=== PATIENT | female | born 1930 | race Caucasian/White ===

== ENCOUNTER 2016-05-24 07:52 | Emergency (ER) | payer MEDICARE ==
[2016-05-24] MEDS ORDERED: Rabies Vaccine (RabAvert)* 2.5 UNITS VIAL IM ONE (08:17)
[2016-05-24] MEDS ORDERED: Rabies Immune Globulin 2 ML* 150 UNITS/ML VIAL IM ONE (08:17)
[2016-05-24] MEDS ORDERED: Tetan/Diph/Pertus SYR(Tdap)* 0.5 ML SYR(BOOSTRIX) use SYR IM ONE (08:17)
[2016-05-24] MEDS ORDERED: Ibuprofen TAB* 600 MG PO ONE (08:26)
[2016-05-24] MEDS ORDERED: cefTRIAXone(*) 1 GM in NS 0.9% 50 ML* 50 ML IVPB ONE (08:37)
[2016-05-24] MEDS ORDERED: Clindamycin 600 MG IVPREMIX(* 600 MG/50 ML SDV IV ONE (08:37)
--- NOTE | 2016-05-24 09:38 | ED ---
Skin Complaint - HPI Summary HPI Summary: Pt here w/ multiple cat bites to Rt UE. Was trying to get a farel cat to the vets for imms and it bit her/scratched her multiple times. Pt is not sure of her last tetanus vaccine and has not had rabies vaccine. No other injuries acquired. Moving fingers, wrist and elbow well. Area is painful to touch. - History of Current Complaint Time Seen by Provider: 05/24/16 08:27 Stated Complaint: CAT BITES Hx Obtained From: Patient - Allergy/Home Medications Allergies/Adverse Reactions: Allergies Allergy/AdvReac Type Severity Reaction Status Date / Time Sulfa Antibiotics Allergy Rash Verified 02/25/15 17:56 PMH/Surg Hx/FS Hx/Imm Hx Previously Healthy: Yes Endocrine/Hematology History: Denies: Hx Anticoagulant Therapy, Hx Diabetes, Hx Thyroid Disease, Hx Unexplained Bleeding, Autoimmune Disease Cardiovascular History: Reports: Hx Hypertension Denies: Hx Pacemaker/ICD Respiratory History: Reports: Hx Asthma Denies: Hx Chronic Obstructive Pulmonary Disease (COPD) History: Denies: Hx Renal Disease Musculoskeletal History: Reports: Hx Arthritis, Other Musculoskeletal History - Osteoarthritis Denies: Hx Rheumatoid Arthritis, Hx Osteoporosis Sensory History: Reports: Hx Contacts or Glasses, Hx Hearing Aid - BOTH, Hx Hearing Problem Opthamlomology History: Reports: Hx Contacts or Glasses Neurological History: Reports: Other Neuro Impairments/Disorders - PAIN CLINIC PATIENT Denies: Hx Dementia, Hx Seizures Psychiatric History: Reports: Hx Anxiety, Hx Depression Denies: Hx Panic Disorder, Hx Substance Abuse - Cancer History Cancer Type, 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 Lt HIP REPAIR - FX- 05/2014. [facility]ARACT - Immunization History Date of Tetanus Vaccine: 05/22/12 Date of Influenza Vaccine: 05/24/12 Infectious Disease History: Denies: Hx Hepatitis, Hx Human Immunodeficiency Virus (HIV), Hx of Known/ Suspected MRSA, Traveled Outside the [place] in Last 30 Days - Family History Known Family History: Positive: None - Social History Occupation: Retired Lives: Alone Alcohol Use: None Hx Substance Use: No Substance Use Type: Reports: None Smoking Status (MU): Never Smoked Tobacco Review of Systems Negative: Fever, Chills, Fatigue Negative: Chest Pain Positive: no symptoms reported Positive: Myalgia. Negative: Arthralgia, Decreased ROM, Edema Skin: Other - see HPI Negative: Weakness, Paresthesia, Numbness Psychological: Normal All Other Systems Reviewed And Are Negative: Yes Physical Exam Triage Information Reviewed: Yes Vital Signs Reviewed: Yes Appearance: Positive: Well-Appearing, No Pain Distress, Well-Nourished Skin: Positive: Warm - multiple puncture wounds and lacerations over Rt Forearm (dorsal and ventral) - ~3 punctures and 2 lacerations dorsally, ~ 3 punctures and 1 laceration vetrally; lac's bleeding, punctures starting to scab Head/Face: Positive: Normal Head/Face Inspection Eyes: Positive: Normal, EOMI, Conjunctiva Clear ENT: Positive: Hearing grossly normal, Pharynx normal Respiratory/Lung Sounds: Positive: Breath Sounds Present Cardiovascular: Positive: Normal, Pulses are Symmetrical in both Upper and Lower Extremities Abdomen Description: Positive: Nontender, Soft Musculoskeletal: Positive: Normal, Strength/ROM Intact - no restriction of movement, no tendons visible within wounds Neurological: Positive: Normal, Sensory/Motor Intact, Alert, Oriented to Person Place, Time, CN Intact II-III Psychiatric: Positive: Normal Procedures - Procedure Summary Procedure Summary: Rt arm was soaked and pressure cleansed then soaked again. Solutions included hibaclens and iodine. Each wound was then anesthetized with 0.5% marcaine, then individually flushed w/ sterile saline, then injected with rabies immunoglobulin (0.5mL - 1.5mL depending on wound size). Lacerations were repaired as states below. Arm was bandaged with sterile gauze and wrap covering all wounds. Pt tolerated well. - Laceration/Wound Repair 1 Location: upper extremity - Rt dorsal wrist, proximal Description: Linear Anesthesia: Local, .5%, Marcaine Length, Depth and Shape: 1.75cm x 3mm Betadine Prep?: Yes Laceration/Wound Explored: clean Closure: Single Layer Suture Type: Nylon - 5-0 Number of Sutures: 2 Layer Closure?: No Sterile Dressing Applied?: Yes - sterile gauze 2 Location: upper extremity - Rt dorsal wrist, distal Description: Linear Anesthesia: Local, .5%, Marcaine Length, Depth and Shape: 3cm x 4mm Betadine Prep?: Yes Laceration/Wound Explored: clean Closure: Single Layer Suture Type: Nylon - 5-0 Number of Sutures: 3 Layer Closure?: No Sterile Dressing Applied?: Yes - sterile gauze 3 Location: upper extremity - Rt wrist ventral Description: Linear - 1cm Anesthesia: Local, .5%, Marcaine Length, Depth and Shape: 1cm x 3mm Betadine Prep?: Yes Laceration/Wound Explored: clean Closure: Single Layer Suture Type: Nylon - 5-0 Number of Sutures: 1 Layer Closure?: No Sterile Dressing Applied?: Yes - gauze Course/Dx - Course Course Of Treatment: Pt sustained mulitple cat bites/scratches to Rt forearm, wrist and hand. Copious irrigation and anti-bacterial cleaning approaches implemented. Loose closure of 3 lacerations to allow drainage w/ encouragement to soak wounds daily and close f/u w/ PCP. Given the quantity and severity of bites as well as nature (cat oral bacteria), pt was tx'd w/ rocephin and clindamycin IV today and will continue anbx PO at home w/ Augmentin. Reviewed danger s/sx of when to return to ED - pt voices understanding. - Diagnoses Provider Diagnoses: Cat bite of multiple sites of right hand and wrist Discharge - Discharge Plan Condition: Stable Disposition: HOME Prescriptions: Amoxicillin/Clavulanate TAB* [Augmentin TAB 875*] 875 mg PO BID #20 tab Patient Education Materials: Rabies Immune Globulin (By injection), Diphtheria/ Acellular Pertussis/Tetanus Vaccine (DTaP) (By injection), Animal Bite (ED), Rabies Vaccine (ED) Referrals: Lori Redding, [facility] [Primary Care Provider] - Additional Instructions: You have sustained multiple cat bites. 3 of them have been closed with sutures - the remaining wounds were left open in an effort to drain. Your sutures need to be removed in 10-14 days however may be removed sooner or later at the discretion of your PCP. You have a dressing in place now - this may be removed so that you may soak your wounds 2 x day in soapy water - rinse well after - pat dry with clean cloth - then reapply fresh gauze with outer wrap. Do not put ointment, cream or any topical medications on your wounds. Keep arm elevated. You may apply ice over your dressing for pain and swelling relief. You may take ibuprofen alternating with tylenol for pain. Complete your antibiotics. You received some here today by IV but also need to take oral pills at home over the next 10 days. You may take probiotics to prevent diarrhea/yeast infection. Discuss with your PCP. You also need [facility] to [facility] remaining rabies vaccine series. Call today to set up your appointments. Follow-up with your PCP tomorrow for wound check and to discuss a monitoring routine as these wounds may get infected. *If you develop red streaking up your arm, purulent drainage, fever, chills - return to the ED
[2016-05-24 10:03] VITALS: BP 123/65
== END 2016-05-24 13:00 | disposition home or self-care (01) ==
LOC: ED 07:52
DX: S60.571A Other superficial bite of hand of right hand, initial encounter (principal); W55.01XA Bitten by cat, initial encounter; Y93.9 Activity, unspecified; Y92.9 Unspecified place or not applicable; Y99.9 Unspecified external cause status
CPT/HCPCS: 90375; 90471; 90675; 90715; 99283; A9270-GY; J0696

== ENCOUNTER 2016-05-25 14:02 | Inpatient (IN) | payer MEDICARE ==
[2016-05-25] MEDS ORDERED: NS 0.9% 1000 ML* 1,000 ML IV ONE (14:54)
[2016-05-25] MEDS ORDERED: Ondansetron INJ* 2 MG/ML VIAL IV ONE (14:54)
[2016-05-25] MEDS ORDERED: Morphine INJ* 2 MG/ML 1 ML CARPUJECT IV ONE (14:54)
[2016-05-25] MEDS ORDERED: Piperac/Tazob 3.375 gm in NS* 3.375 GM/100 ML BAG IVPB ONE (15:01)
[2016-05-25 15:52] LABS: Hematocrit 34 % (35-47); Hemoglobin 11.4 g/dl (12.0-16.0); Mean Corpuscular HGB Conc 34 g/dl (31-36); Mean Corpuscular Hemoglobin 30 pg (27-31); Mean Corpuscular Volume 89 fL (80-97); Mean Platelet Volume 8 um3 (7.4-10.4); Red Blood Count 3.77 10^6/ul (4.0-5.4); Red Cell Distribution Width 13 % (10.5-15); White Blood Count 19.1 10^3/ul (3.5-10.8)
[2016-05-25 16:21] LABS: Albumin 4.1 g/dL (3.2-5.2); BUN/Creatinine Ratio 20.2 (8-20); C Reactive Protein 208.95 mg/L (< 5.00); Calcium 10.1 mg/dL (8.6-10.3); EGFR African American 61.2 (>60); EGFR Non-African American 47.6 (>60); Globulin 3.3 g/dL (2-4); Potassium 3.7 mmol/L (3.5-5.0); Total Bilirubin 0.6 mg/dL (0.2-1.0); Total Protein 7.4 g/dL (6.4-8.9)
--- NOTE | 2016-05-25 17:19 | ED ---
Ramez Edmondson Billy, scribed for Pasha Jalloh MD on 05/25/16 at 1456 . Complex/Multi-Sys Presentation - HPI Summary HPI Summary: Patient is an 86 year-old female coming to [facility] for evaluation of general weakness. She was seen in the ED for cat bite/scratches and was given sutures in the RUE. She is incontinent of stool today because she was unable to get up to stand and use her walker secondary to the pain in her right arm. She was prescribed Augmentin yesterday but has not gotten a chance to take any yet. - History Of Current Complaint Chief Complaint: EDGeneral Time Seen by Provider: 05/25/16 14:17 Hx Obtained From: Patient Onset/Duration: Gradual Onset, Lasting Hours, Still Present Timing: Constant Severity Currently: Moderate Severity Initially: Moderate Location: Pain At: - RUE Aggravating Factor(s): none Alleviating Factor(s): none Associated Signs And Symptoms: Positive: Weakness, Other - stool incontinent; cat scratch - Allergies/Home Medications Allergies/Adverse Reactions: Allergies Allergy/AdvReac Type Severity Reaction Status Date / Time Sulfa Antibiotics Allergy Rash Verified 05/25/16 14:32 PMH/Surg Hx/FS Hx/Imm Hx Endocrine/Hematology History: Denies: Hx Anticoagulant Therapy, Hx Diabetes, Hx Thyroid Disease, Hx Unexplained Bleeding Cardiovascular History: Reports: Hx Hypertension Denies: Hx Pacemaker/ICD Respiratory History: Reports: Hx Asthma Denies: Hx Chronic Obstructive Pulmonary Disease (COPD) History: Denies: Hx Renal Disease Musculoskeletal History: Reports: Hx Arthritis, Other Musculoskeletal History - Osteoarthritis Denies: Hx Rheumatoid Arthritis, Hx Osteoporosis Sensory History: Reports: Hx Contacts or Glasses, Hx Hearing Aid - BOTH, Hx Hearing Problem Opthamlomology History: Reports: Hx Contacts or Glasses Neurological History: Reports: Other Neuro Impairments/Disorders - PAIN CLINIC PATIENT Denies: Hx Dementia, Hx Seizures Psychiatric History: Reports: Hx Anxiety, Hx Depression Denies: Hx Panic Disorder, Hx Substance Abuse - Cancer History Cancer Type, 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 Lt HIP REPAIR - FX- 05/2014. [facility]ARACT - Immunization History Date of Tetanus Vaccine: 05/22/12 Date of Influenza Vaccine: 05/24/12 Infectious Disease History: No Infectious Disease History: Denies: Hx Hepatitis, Hx Human Immunodeficiency Virus (HIV), Hx of Known/ Suspected MRSA, Traveled Outside the US in Last 30 Days - Family History Family History: Denies FHx of breast cancer. - Social History Alcohol Use: None Hx Substance Use: No Substance Use Type: Reports: None Smoking Status (MU): Never Smoked Tobacco Review of Systems Positive: Other - incontinent stool Positive: Other - RUE pain Positive: Other - cat scratch/bite to RUE All Other Systems Reviewed And Are Negative: Yes Physical Exam - Summary Physical Exam Summary: Vital signs: reviewed General: Patient is and elderly fragile female here c/o UE pain and generalized weakness. HEENT: within normal limits Lungs: CTA B/L CVS: S1 & S2 present. No murmurs appreciated. ABDOMEN: Soft, non-tender. No signs of distention. No rebound no guarding, and no masses palpated. Bowel sounds are normal. EXTREMITIES: RUE wirh multiple repaired wounds w/o discharge but with erythema and tracking into the arm. NEURO: Alert and oriented x 3. No acute neurological deficits. Speech is normal and follows commands. SKIN: Dry and warm Triage Information Reviewed: Yes Vital Signs On Initial Exam: Initial Vitals Temp Pulse Resp BP Pulse Ox 98.3 F 96 20 120/93 92 05/25/16 14:28 05/25/16 14:28 05/25/16 14:28 05/25/16 14:28 05/25/16 14:28 Vital Signs Reviewed: Yes Diagnostics - Vital Signs Vital Signs Temp Pulse Resp BP Pulse Ox 05/25/16 14:28 98.3 F 96 20 120/93 92 - Laboratory Result Diagrams: 05/25/16 15:30 05/25/16 15:30 Lab Statement: Any lab studies that have been ordered have been reviewed, and results considered in the medical decision making process. Complex Multi-Symp Course/Dx Assessment/Plan: Patient is an 86 year-old female coming to [facility] for evaluation of general weakness. She was seen in the ED for cat bite/scratches and was given sutures in the RUE. She is incontinent of stool today because she was unable to get up to stand and use her walker secondary to the pain in her right arm. She was prescribed Augmentin yesterday but has not gotten a chance to take any yet. Bloodwork shows WBC of 19.1, H&H of 11.4/34. CMP shows creatinine of 1.09, glu 130, lactic acid of 2.6 and CRP of 208. Physical examination shows that she has significant cellulitis retracting into her armpit. Therfore I believe she is failing to outpatient therapy and therefore she needs IV abx. She was started on Zosyn 3.375mg IV. I discussed the case with Dr. Hairston who accepted the patient for admission. She is hemodynamically stable, A&Ox3. - Diagnoses Differential Diagnoses/HQI/PQRI: Sepsis, Other - UE cellulitis, abscess Provider Diagnoses: UE cellulitis - Physician Notifications Discussed Care Of Patient With: Dr. Hairston (hospitalist) @ 1703: accepts admission. Discharge - Discharge Plan Condition: Stable Disposition: ADMITTED TO [facility] Referrals: Lori Redding, [facility] [employer] [facility] [Primary Care Provider] - The documentation as recorded by the Ramez durán Billy accurately reflects the service I personally performed and the decisions made by me, Pasha Jalloh MD.
[2016-05-25] MEDS ORDERED: Acetaminophen TAB* 325 MG PO PRN (17:47)
[2016-05-25] MEDS ORDERED: Docusate CAP* 100 MG PO PRN (17:47)
[2016-05-25] MEDS ORDERED: Ondansetron INJ* 2 MG/ML VIAL IV PRN (17:57)
[2016-05-25] MEDS ORDERED: NS 0.9% 1000 ML* 1,000 ML IV SCH (18:00)
[2016-05-25] MEDS: Piperac/Tazob 3.375 gm in NS* 3.375 GM/100 ML BAG IVPB SCH (20:14)
[2016-05-25] MEDS: Enoxaparin(*) 30 MG/0.3 ML SYR SUBCUT SCH (20:14)
--- NOTE | 2016-05-25 21:58 | HP ---
AMENDED REPORT NOW INCLUDES DATE OF ADMISSION - WAS NOT DICTATED HISTORY AND PHYSICAL: DATE OF ADMISSION: 05/25/16 PRIMARY CARE PROVIDER: Lori Redding NP ADMITTING PROVIDER: LANA Dinh SUPERVISING PHYSICIAN: Gretchen Jaramillo MD * (DICTATED BY LANA DINH) CHIEF COMPLAINT: Generalized weakness and increased hand and arm pain. HISTORY OF PRESENT ILLNESS: This is an 86-year-old female with history of hypertension, asthma, anxiety and depression, and chronic back pain secondary to osteoarthritis who was seen yesterday in the emergency department after sustaining cat scratches and bites. She underwent loose closure and started on her rabies vaccination series as well as receiving Rocephin and clindamycin and discharged home with 10 days of Augmentin. The patient was unable to open her bottle of Augmentin due to pain in her arm and awoke this morning with generalized weakness, increased pain, and erythema. The patient attempted to function at home throughout the day, but was still profoundly weak that she was unable to walk. Her daughter attempted to bring her into the emergency department via car but was unable to get her into the car , so EMS was called. The patient denies any nausea, vomiting, abdominal pain, shortness of breath, or chest pain. She is unsure if she has been febrile at home but denies any chills. PAST MEDICAL HISTORY: 1. Asthma - mild intermittent. 2. Hypertension. 3. Anxiety and depression. 4. Chronic back pain, secondary to osteoarthritis. PAST SURGICAL HISTORY: 1. Hysterectomy. 2. Left total hip replacement. 3. Cataract surgery. 4. Skin excision for squamous cell carcinoma. HOME MEDICATIONS: 1. Acetaminophen 650 mg p.o. q.12 hours p.r.n. pain or fever. 2. Albuterol sulfate 2 puffs inhaled q.4 hours as needed for shortness of breath. 3. Augmentin 875 mg p.o. b.i.d. x 10 days. 4. Calcium and vitamin D supplements 3 chewables p.o. daily. 5. Docusate 100 mg p.o. daily. 6. Lisinopril 2.5 mg p.o. daily. 7. Loratadine 10 mg p.o. daily. 8. Paroxetine 20 mg p.o. daily. 9. Propanol 20 mg p.o. b.i.d. FAMILY HISTORY: Father of an acute MO. Mother of stomach cancer. Sister also of stomach cancer. She has 2 children, alive and well. SOCIAL HISTORY: The patient lives alone. Her daughter lives down the street. Denies any smoking history. Regular alcohol consumption. She is retired from [employer]. REVIEW OF SYSTEMS: As noted above in HPI. PHYSICAL EXAMINATION GENERAL: This is a very pleasant elderly female, who is in no acute distress, lying comfortably on hospital stretcher. VITAL SIGNS: Initially, temperature 98.3 degree Fahrenheit, pulse 96 beats per minute, respiratory rate 20 per minute, oxygen saturation 92% on room air, and blood pressure 120/93 mmHg. HEENT: Head is normocephalic, atraumatic and mucous membranes are mildly dry. RESPIRATORY: Lungs are clear to auscultation without wheezes, crackles, or rhonchi. CARDIOVASCULAR: Heart has a regular rate and rhythm. There is a kind of a high - pitched murmur appreciated, best heard at the right sternal border, consistent with possible aortic stenosis. ABDOMEN: Abdomen is soft and nontender to palpation. EXTREMITIES: No lower extremity swelling. SKIN: The patient has 2 areas that were loosely closed over her right forearm, each about 2 cm in length. One is draining some serosanguineous fluid. There is diffuse erythema, mostly concentrated in a dependent region of her forearm with evidence of lymphangitis, spreading proximally to the mid humeral section. PSYCH: The patient is alert and appropriately oriented. LABORATORY EVALUATION: CBC shows white blood cell count of 19,100; hemoglobin 11.4 g/dL; and platelet count of 300,000. Comprehensive metabolic panel shows a normal sodium of 137 mmol/L, potassium 3.7 mmol/L, BUN of 22, creatinine 1.09 , and estimated GFR of 47. Random glucose of 130 mg/dL. Lactic acid elevated at 2.6. Transaminases and total bilirubin within normal limits. CRP significantly elevated at 208. DIAGNOSTICS STUDIES AND IMAGING: None. ASSESSMENT/PLAN: This is a pleasant 86-year-old female with history of hypertension, mild intermittent asthma, anxiety/depression, and osteoarthritis, causing chronic back pain who presents after sustaining a cat scratch and bite from a feral cat and complicated by cellulitis. 1. Cellulitis, secondary to cat scratch and bite: The patient was appropriately discharged from the emergency department yesterday with Augmentin , but the patient was unable to take the medication and developed generalized weakness today and worsening erythema. She is afebrile at this time, but with significant leukocytosis. The patient is being admitted for IV antibiotics. We will choose Zosyn during her hospital stay. No evidence of associated abscess. Prior closure seem to be loose and draining appropriately. I do not see the need to open those. Asked the nursing to please track her area of erythema to ensure if it is not continuing to spread. 2. Heart murmur: The patient believes that she has been told this before. Her murmur seems consistent with aortic stenosis. I will defer further workup to her primary care provider, it does not seem to be contributing to her hospital stay at this time. No prior echocardiograms are available for reviewing. 3. Acute kidney injury: Likely due to hypovolemic state in the setting of acute illness. I gave her one additional liter of fluid at a slow rate. Repeat labs in the morning. 4. Hypertension: Hold her lisinopril and propanol in the setting of hypotension in the emergency department and acute infection. 5. Asthma: Mild, intermittent without acute exacerbation. We will use p.r.n. albuterol. 6. Anxiety and depression: Continue Paxil. 7. Chronic back pain: Use Tylenol as needed. 8. Code status: The patient is full code. 9. Health care proxy: Her daughter. 10. DVT prophylaxis: The patient is at moderate risk for DVT, we placed on 40 mg of Lovenox subcu daily. 11. Disposition: The patient is being admitted under observation status. Her cellulitis is associated with cat scratch and bite. Anticipate possible discharge tomorrow. LANA DINH CC: Lori Redding NP * [id number]/[facility] #: [id number] MTDD
[2016-05-25] MEDS: Albuterol HFA INHALER* 8 gm MDI INH PRN (23:07)
[2016-05-26] MEDS: Piperac/Tazob 3.375 gm in NS* 3.375 GM/100 ML BAG IVPB SCH ×3 (04:08→20:35)
[2016-05-26 07:31] LABS: Hematocrit 29 % (35-47); Hemoglobin 9.7 g/dl (12.0-16.0); Mean Corpuscular HGB Conc 34 g/dl (31-36); Mean Corpuscular Hemoglobin 31 pg (27-31); Mean Corpuscular Volume 90 fL (80-97); Mean Platelet Volume 9 um3 (7.4-10.4); Red Blood Count 3.19 10^6/ul (4.0-5.4); Red Cell Distribution Width 13 % (10.5-15); White Blood Count 13.2 10^3/ul (3.5-10.8)
[2016-05-26 07:43] LABS: BUN/Creatinine Ratio 16.5 (8-20); Calcium 8.7 mg/dL (8.6-10.3); EGFR African American 65.3 (>60); EGFR Non-African American 50.8 (>60); Potassium 3.6 mmol/L (3.5-5.0)
[2016-05-26] MEDS: PARoxetine HCL TAB* 20 MG PO SCH (09:49)
--- NOTE | 2016-05-26 11:17 | PN ---
Subjective Date of Service: 05/26/16 Interval History: Patient was admitted with cellulitis related to a recent cat bite/scratch. She was complaining of R arm pain and generalized weakness. Patient reports this am her arm is feeling slightly better. She is not able to do much with the arm due to continued edema and pain. She required significant assistance to go from bed to chair this am. She still feels weak. Objective Active Medications: Acetaminophen (Tylenol Tab*) 650 mg PO Q6H PRN PRN Reason: PAIN Albuterol (Ventolin Hfa Inhaler*) 2 puff INH Q4H PRN PRN Reason: SHORTNESS OF BREATH Last Admin: 05/25/16 23:07 Dose: 2 puff Docusate Sodium (Colace Cap*) 100 mg PO DAILY PRN PRN Reason: CONSTIPATION Enoxaparin Sodium (Lovenox(*)) 30 mg SUBCUT Q24H [facility] Last Admin: 05/25/16 20:14 Dose: 30 mg Piperacillin Sod/Tazobactam Sod (Zosyn 3.375 Gm In Ns Premix*) 3.375 gm in 100 mls @ 25 mls/hr IVPB Q8H [facility] Last Admin: 05/26/16 04:08 Dose: 25 mls/hr Ondansetron HCl (Zofran Inj*) 4 mg IV Q4H PRN PRN Reason: NAUSEA/VOMITING Paroxetine HCl (Paxil Tab*) 20 mg PO DAILY [facility] Last Admin: 05/26/16 09:49 Dose: 20 mg Vital Signs: Temp Pulse Resp BP Pulse Ox 97.8 F 69 16 128/57 97 05/26/16 07:22 05/26/16 07:22 05/26/16 07:22 05/26/16 07:22 05/26/16 04:06 Appearance: Well appearing elderly female in NAD Respiratory: Symmetrical Chest Expansion and Respiratory Effort Cardiovascular: RRR, - - high pitched murmur 3-4/6 Abdominal: NL Sounds; No Tenderness; No Distention Extremities: - - RUE edema, trace LE edema bilaterally Skin: - - mild erythema over volar R forearm, greatly improved Neurological: Alert and Oriented x 3 Result Diagrams: 05/26/16 06:22 05/26/16 06:22 Assess/Plan/Problems-Billing Assessment: This is an 86 yo female with mild intermittent asthma, HTN, anxiety/depression, chronic back pain secondary to OA who presented with complaints of weakness and R arm pain/redness after a cat scratch and bite. - Patient Problems (1) Cellulitis Comment: Secondary to cat bite/scratch Noted improvement in erythema Afebrile and WBC improving Cont Zosyn (2) Generalized weakness Comment: Likely due to acute illness She is not terribly mobile at baseline Requested PT consult (3) Acute kidney insufficiency Comment: Improved (4) Hypertension Comment: Now normotensive, hypotensive at admission Will cont to hold antihypertensives (5) Anxiety and depression Comment: Cont Paxil (6) Mild intermittent asthma Comment: No acute exacerbation Cont prn albuterol Status and Disposition: Patient requires continued hospital care. Will transition to inpatient status
[2016-05-26] MEDS: Acetaminophen TAB* 325 MG PO PRN ×2 (12:17→18:32)
[2016-05-26] MEDS ORDERED: Morphine INJ* 2 MG/ML 1 ML CARPUJECT IV PRN (16:58)
[2016-05-26] MEDS: Enoxaparin(*) 30 MG/0.3 ML SYR SUBCUT SCH (18:31)
[2016-05-27] MEDS: Albuterol HFA INHALER* 8 gm MDI INH PRN ×2 (01:07→15:02)
[2016-05-27] MEDS: Piperac/Tazob 3.375 gm in NS* 3.375 GM/100 ML BAG IVPB SCH ×3 (04:14→20:05)
[2016-05-27] MEDS: Acetaminophen TAB* 325 MG PO PRN (09:49)
[2016-05-27] MEDS: PARoxetine HCL TAB* 20 MG PO SCH (09:50)
[2016-05-27 10:49] LABS: Hematocrit 30 % (35-47); Mean Corpuscular HGB Conc 34 g/dl (31-36); Mean Corpuscular Hemoglobin 30 pg (27-31); Mean Corpuscular Volume 90 fL (80-97); Mean Platelet Volume 8 um3 (7.4-10.4); Red Blood Count 3.29 10^6/ul (4.0-5.4); Red Cell Distribution Width 14 % (10.5-15); White Blood Count 9.5 10^3/ul (3.5-10.8)
[2016-05-27 11:08] LABS: BUN/Creatinine Ratio 13.9 (8-20); C Reactive Protein 90.25 mg/L (< 5.00); Calcium 8.9 mg/dL (8.6-10.3); EGFR African American 66.8 (>60); Potassium 3.4 mmol/L (3.5-5.0)
[2016-05-27] MEDS ORDERED: Rabies VIRUS VACCINE (Imovax)* 2.5 UNIT/ML 1 ML IM ONE (14:00)
--- NOTE | 2016-05-27 16:15 | PN ---
Subjective Date of Service: 05/27/16 Interval History: Patient reports some improvement in pain and strength. She has been working with PT. She has been afebrile. She is nervous to return home, feeling that she is still too weak to manage on her own. Objective Active Medications: Acetaminophen (Tylenol Tab*) 650 mg PO Q6H PRN PRN Reason: PAIN Last Admin: 05/27/16 09:49 Dose: 650 mg Albuterol (Ventolin Hfa Inhaler*) 2 puff INH Q4H PRN PRN Reason: SHORTNESS OF BREATH Last Admin: 05/27/16 15:02 Dose: 2 puff Docusate Sodium (Colace Cap*) 100 mg PO DAILY PRN PRN Reason: CONSTIPATION Enoxaparin Sodium (Lovenox(*)) 30 mg SUBCUT Q24H [facility] Last Admin: 05/26/16 18:31 Dose: 30 mg Piperacillin Sod/Tazobactam Sod (Zosyn 3.375 Gm In Ns Premix*) 3.375 gm in 100 mls @ 25 mls/hr IVPB Q8H [facility] Last Admin: 05/27/16 12:10 Dose: 25 mls/hr Morphine Sulfate (Morphine Inj (Syringe)*) 2 mg IV Q4H PRN PRN Reason: PAIN - MILD Ondansetron HCl (Zofran Inj*) 4 mg IV Q4H PRN PRN Reason: NAUSEA/VOMITING Paroxetine HCl (Paxil Tab*) 20 mg PO DAILY [facility] Last Admin: 05/27/16 09:50 Dose: 20 mg Vital Signs: Temp Pulse Resp BP Pulse Ox 97.7 F 72 18 108/57 97 05/27/16 15:38 05/27/16 15:38 05/27/16 15:38 05/27/16 15:38 05/27/16 15:38 Oxygen Devices in Use Now: None Appearance: Well appearing elderly female in NAD Respiratory: Symmetrical Chest Expansion and Respiratory Effort, Clear to Auscultation Cardiovascular: NL Sounds; No Murmurs; No JVD, RRR Abdominal: NL Sounds; No Tenderness; No Distention Skin: - - dramatically improved erythema and edema in R arm. Neurological: Alert and Oriented x 3 Result Diagrams: 05/27/16 10:18 05/27/16 10:18 Assess/Plan/Problems-Billing Assessment: This is an 86 yo female with mild intermittent asthma, HTN, anxiety/depression, chronic back pain secondary to OA who presented with complaints of weakness and R arm pain/redness after a cat scratch and bite. - Patient Problems (1) Cellulitis Comment: Secondary to cat bite/scratch Noted improvement in erythema Afebrile and WBC improving Cont Zosyn (2) Generalized weakness Comment: Likely due to acute illness She is not terribly mobile at baseline She is doing well with PT, nearing her baseline (3) Acute kidney insufficiency Comment: Improved (4) Hypertension Comment: Now normotensive, hypotensive at admission Will cont to hold antihypertensives (5) Anxiety and depression Comment: Cont Paxil (6) Mild intermittent asthma Comment: No acute exacerbation Cont prn albuterol Status and Disposition: Patient is likely near her baseline but does need some additional assistance at home for the next couple of days. Have been attempting to get a hold of her daughter today, but there has been no answer. She can be discharged later this evening if her daughter is available to be there. Otherwise, discharge tomorrow. She has a filled Rx of Augmentin at home which can be resumed when she returns.
[2016-05-27] MEDS: Enoxaparin(*) 30 MG/0.3 ML SYR SUBCUT SCH (17:32)
[2016-05-28] MEDS: Piperac/Tazob 3.375 gm in NS* 3.375 GM/100 ML BAG IVPB SCH ×3 (04:20→21:20)
[2016-05-28] MEDS: Albuterol HFA INHALER* 8 gm MDI INH PRN (05:14)
[2016-05-28] MEDS: PARoxetine HCL TAB* 20 MG PO SCH (10:09)
[2016-05-28] MEDS ORDERED: Potassium Chlor TAB* 20 MEQ TAB.ER PO ONE (15:12)
--- NOTE | 2016-05-28 15:28 | PN ---
Subjective Date of Service: 05/28/16 Interval History: patient reports she feels much better today and thinks she could go home. She reports she has been able to use her walker with her inured wrist "just fine. No fevers or chills. Reports the redness and swelling is "almost gone in her right hand/arm. Reports small bout of diarrhea but states its since resolved. No abdominal pain. No N/V/D. Objective Active Medications: Acetaminophen (Tylenol Tab*) 650 mg PO Q6H PRN PRN Reason: PAIN Last Admin: 05/27/16 09:49 Dose: 650 mg Albuterol (Ventolin Hfa Inhaler*) 2 puff INH Q4H PRN PRN Reason: SHORTNESS OF BREATH Last Admin: 05/28/16 05:14 Dose: 2 puff Docusate Sodium (Colace Cap*) 100 mg PO DAILY PRN PRN Reason: CONSTIPATION Enoxaparin Sodium (Lovenox(*)) 30 mg SUBCUT Q24H [facility] Last Admin: 05/27/16 17:32 Dose: 30 mg Piperacillin Sod/Tazobactam Sod (Zosyn 3.375 Gm In Ns Premix*) 3.375 gm in 100 mls @ 25 mls/hr IVPB Q8H [facility] Last Admin: 05/28/16 12:06 Dose: 25 mls/hr Morphine Sulfate (Morphine Inj (Syringe)*) 2 mg IV Q4H PRN PRN Reason: PAIN - MILD Ondansetron HCl (Zofran Inj*) 4 mg IV Q4H PRN PRN Reason: NAUSEA/VOMITING Paroxetine HCl (Paxil Tab*) 20 mg PO DAILY [facility] Last Admin: 05/28/16 10:09 Dose: 20 mg Vital Signs 05/27/16 05/28/16 05/28/16 15:38 00:05 00:48 Temperature 97.7 F 97.9 F Pulse Rate 72 72 Respiratory 18 18 15 Rate Blood Pressure 108/57 139/55 (mmHg) O2 Sat by Pulse 97 93 Oximetry Oxygen Devices in Use Now: None Appearance: elderly female sitting up in a chair A+O x3 in NAD Eyes: No Scleral Icterus, PERRLA Ears/Nose/Mouth/Throat: NL Teeth, Lips, Gums, Mucous Membranes Moist Neck: NL Appearance and Movements; NL JVP, Trachea Midline Respiratory: Symmetrical Chest Expansion and Respiratory Effort, Clear to Auscultation Cardiovascular: NL Sounds; No Murmurs; No JVD, RRR, No Edema Abdominal: NL Sounds; No Tenderness; No Distention Lymphatic: No Cervical Adenopathy Extremities: No Edema, No Clubbing, Cyanosis Skin: - - right wrist stitches - mild erthyrema. no drainage noted - Neurological: Alert and Oriented x 3, NL Sensation, NL Muscle Strength and Tone Lines/Tubes/Other Access: Clean, Dry and Intact Peripheral IV Nutrition: Taking PO's Result Diagrams: 05/27/16 10:18 05/27/16 10:18 Assess/Plan/Problems-Billing Assessment: This is an 86 yo female with mild intermittent asthma, HTN, anxiety/depression, chronic back pain secondary to OA who presented with complaints of weakness and R arm pain/redness after a cat scratch and bite. - Patient Problems (1) Cellulitis Comment: Secondary to cat bite/scratch Noted improvement in erythema and edema Afebrile and WBC improving Cont Zosyn - switch to Augmentin at DC f/u with ortho as outpt (2) Acute kidney insufficiency Comment: Improved (3) Anxiety and depression Comment: Cont Paxil (4) Mild intermittent asthma Comment: No acute exacerbation Cont prn albuterol (5) Hypertension Comment: normotensive, restart home medications (6) DVT prophylaxis Comment: lovenox Status and Disposition: Patient is likely near her baseline. Have been attempting to get a hold of her daughter today, but there has been no answer. She can be discharged later this evening if her daughter is available to be there (I left 2 messages). She has a filled Rx of Augmentin at home which can be resumed when she returns.
[2016-05-28] MEDS: Enoxaparin(*) 30 MG/0.3 ML SYR SUBCUT SCH (17:57)
[2016-05-28] MEDS: Propranolol TAB* 20 MG PO SCH (21:20)
[2016-05-29 00:19] VITALS: BP 150/75
[2016-05-29] MEDS: Albuterol HFA INHALER* 8 gm MDI INH PRN (00:33)
[2016-05-29] MEDS: Piperac/Tazob 3.375 gm in NS* 3.375 GM/100 ML BAG IVPB SCH (04:54)
[2016-05-29 06:00] LABS: Hematocrit 29 % (35-47); Hemoglobin 9.7 g/dl (12.0-16.0); Mean Corpuscular HGB Conc 34 g/dl (31-36); Mean Corpuscular Hemoglobin 30 pg (27-31); Mean Corpuscular Volume 89 fL (80-97); Mean Platelet Volume 8 um3 (7.4-10.4); Red Blood Count 3.21 10^6/ul (4.0-5.4); Red Cell Distribution Width 13 % (10.5-15); White Blood Count 8.6 10^3/ul (3.5-10.8)
[2016-05-29 06:14] LABS: BUN/Creatinine Ratio 12.5 (8-20); Calcium 9.4 mg/dL (8.6-10.3); EGFR African American 87.5 (>60); Potassium 3.9 mmol/L (3.5-5.0)
[2016-05-29] MEDS ORDERED: Amoxicillin/Clavulanate TAB* 875 MG PO SCH (09:00)
[2016-05-29] MEDS ORDERED: Lisinopril TAB* 5 MG PO SCH (09:00)
[2016-05-29] MEDS: Propranolol TAB* 20 MG PO SCH (11:12)
[2016-05-29] MEDS: PARoxetine HCL TAB* 20 MG PO SCH (11:13)
--- NOTE | 2016-05-29 15:17 | DCNOTE ---
Subjective Date of Service: 05/29/16 Interval History: pt reports she is ready to go home today stating her wrist and arm are "much better.". She is able to use the walker w/o any problems. minimally pain. Feels steady on her feet. no fevers or chills. good appetite Objective Active Medications: Acetaminophen (Tylenol Tab*) 650 mg PO Q6H PRN PRN Reason: PAIN Last Admin: 05/27/16 09:49 Dose: 650 mg Albuterol (Ventolin Hfa Inhaler*) 2 puff INH Q4H PRN PRN Reason: SHORTNESS OF BREATH Last Admin: 05/29/16 00:33 Dose: 2 puff Amoxicillin/Clavulanate Potassium (Augmentin Tab*) 875 mg PO BID [facility] Last Admin: 05/29/16 11:12 Dose: 875 mg Docusate Sodium (Colace Cap*) 100 mg PO DAILY PRN PRN Reason: CONSTIPATION Enoxaparin Sodium (Lovenox(*)) 30 mg SUBCUT Q24H [facility] Last Admin: 05/28/16 17:57 Dose: 30 mg Lisinopril (Prinivil Tab*) 2.5 mg PO DAILY [facility] Last Admin: 05/29/16 11:18 Dose: 2.5 mg Morphine Sulfate (Morphine Inj (Syringe)*) 2 mg IV Q4H PRN PRN Reason: PAIN - MILD Ondansetron HCl (Zofran Inj*) 4 mg IV Q4H PRN PRN Reason: NAUSEA/VOMITING Paroxetine HCl (Paxil Tab*) 20 mg PO DAILY [facility] Last Admin: 05/29/16 11:13 Dose: 20 mg Propranolol HCl (Inderal Tab*) 20 mg PO BID [facility] Last Admin: 05/29/16 11:12 Dose: 20 mg Vital Signs 05/28/16 05/28/16 05/29/16 15:51 20:00 00:06 Temperature 97.7 F 97.9 F Pulse Rate 69 69 Respiratory 16 16 16 Rate Blood Pressure 127/52 138/104 (mmHg) O2 Sat by Pulse 96 92 Oximetry 05/29/16 00:18 Temperature Pulse Rate Respiratory Rate Blood Pressure 150/75 (mmHg) O2 Sat by Pulse Oximetry Oxygen Devices in Use Now: None Appearance: elderly female sitting up in bed in NAD. A+O x3 Eyes: No Scleral Icterus, PERRLA Ears/Nose/Mouth/Throat: NL Teeth, Lips, Gums, Mucous Membranes Moist Neck: NL Appearance and Movements; NL JVP Respiratory: Symmetrical Chest Expansion and Respiratory Effort, Clear to Auscultation Cardiovascular: NL Sounds; No Murmurs; No JVD, RRR, No Edema Abdominal: NL Sounds; No Tenderness; No Distention Lymphatic: No Cervical Adenopathy Extremities: No Edema, No Clubbing, Cyanosis Skin: - - right wrist with posterior and anterior stitches intact, mild erythema , no drainage, no edema - appears to be healing Neurological: Alert and Oriented x 3, NL Sensation, NL Gait, NL Muscle Strength and Tone Lines/Tubes/Other Access: Clean, Dry and Intact Peripheral IV Nutrition: Taking PO's Result Diagrams: 05/29/16 05:35 05/29/16 05:35 Assess/Plan/Problems-Billing Assessment: This is an 86 yo female with mild intermittent asthma, HTN, anxiety/depression, chronic back pain secondary to OA who presented with complaints of weakness and R arm pain/redness after a cat scratch and bite. - Patient Problems (1) Cellulitis Comment: Secondary to cat bite/scratch Much improvement in erythema and edema Afebrile and leukocytosis resolved was on Zosyn - switched to Augmentin Close f.u with pcp - stitches to be reomved between 06/03-06/07 (2) Acute kidney insufficiency Comment: Improved (3) Anxiety and depression Comment: Cont Paxil (4) Mild intermittent asthma Comment: No acute exacerbation Cont prn albuterol (5) Hypertension Comment: normotensive, restart home medications (6) DVT prophylaxis Comment: lovenox Status and Disposition: Patient is at her baseline. Stable for DC to home. Daughter to come to transport daughter. I spoke with her over the phone, she has no discharge concerns. She has a filled Rx of Augmentin at home which can be resumed when she returns.
[2016-05-29] MEDS: Enoxaparin(*) 30 MG/0.3 ML SYR SUBCUT SCH (20:42)
--- NOTE | 2016-05-30 08:53 | DS ---
DISCHARGE SUMMARY: DATE OF ADMISSION: 05/25/16 DATE OF DISCHARGE: 05/29/16 PROVIDER: Henry Keane NP. ATTENDING PHYSICIAN: Dr. Maggi Crews * (report dictated by Henry Keane NP). PRIMARY CARE PROVIDER: Lori Redding NP. PRIMARY DIAGNOSES: Cellulitis secondary to a cat scratch/bite, status post stitches. SECONDARY DIAGNOSES: 1. Asthma. 2. Hypertension. 3. Anxiety and depression. 4. Chronic back pain secondary to osteoarthritis. DISCHARGE MEDICATIONS: 1. Claritin 10 mg p.o. daily p.r.n. 2. Colace 100 mg p.o. daily p.r.n. 3. Calcium carbonate/cholecalciferol 2 chews p.o. daily. 4. Albuterol 2 puffs INH q.4 hours p.r.n. 5. Paxil 20 mg p.o. daily. 6. Lisinopril 2.5 mg p.o. daily. 7. Acetaminophen 60 mg p.o. q.12 hours p.r.n. 8. Propranolol 20 mg p.o. b.i.d. 9. Augmentin 875 mg p.o. b.i.d. x10 days. HISTORY OF PRESENT ILLNESS AND HOSPITAL COURSE: Please see history and physical by PA. Yris, for full admission details, but in summary, this is an 86-year- old female with a past medical history of hypertension, asthma, anxiety, depression, chronic back pain, who was seen originally on 05/25 in the emergency department after sustaining a cat bite and scratches, underwent a loose closure, and started on rabies vaccinations as well as receiving a dose of Rocephin and clindamycin and was discharged home on 10 days of Augmentin. The patient returned to the emergency department on 05/26/16 with complaint of generalized weakness, increased head and arm pain, noted to have some erythema and edema around the right arm wounds. The patient reports that she was unable to open her bottle of Augmentin due to her hand and arm pain , and she woke the morning of admission with generalized weakness, increased pain, and noted increase in erythema and edema and came to the emergency department. She was admitted to the hospitalist service for IV antibiotics. She was initially started on Zosyn for several days and switched over to Augmentin at discharge. The patient has remained afebrile throughout hospitalization. Initially, she had a leukocytosis of 19,000, which has resolved. On admission, she had a lactic acid of 2.6, which resolved with IV fluids. Noted to have a mildly elevated creatinine on admission of 1.09, which resolved with IV fluid, today is 0.80. The patient has done well throughout the hospitalization. She has been ambulating with a walker. Her right wrist wound, which has stitches on the posterior aspect and lateral aspect, appear to be healing well, very mild erythema which has greatly improved over the course of hospitalization, with decrease in arm swelling; per patient her arm "almost appears normal." She has good range of motion in her right wrist with very mild edema today on discharge. Again, the patient has been able to ambulate independently with a walker and stable for discharge home. I spoke with her daughter and discussed the plan of care. She has no concerns about the patient going home and being safe. I discussed with the patient she needs to follow up with Lori Redding NP., this week for reevaluation of the wound. Please note, the patient was also started on rabies vaccination, had initial dose on 05/25/16. DISCHARGE PLAN: 1. Follow up with Lroi Redding NP, on 05/30/16 at 11:30 a.m. 2. Visiting nurse service will follow up with the patient at home. 3. Stitches to be removed in 10 to 14 days after being placed, which would 02/07 to 06/07/16. The patient was instructed to wash her wound daily with soap and water and pat dry. Worsening signs and symptoms were discussed with the patient, when to return to the emergency department. 4. The patient will need to follow up with her rabies vaccination course. She already received her day 0 and day 3, and then she will need to follow up on day 7, 14, and 28. The day 7 dose will be due on 05/31/16. She is to follow up with her primary care provider regarding this on her followup on 05/30. If the primary care office does not provide this, the patient could go to Urgent Care for her followup. CONDITION AT DISCHARGE: Stable. TIME SPENT: Sixty minutes were spent on this discharge. HENRY KEANE NP CC: Lori Redding NP.* [id number]/CPS #: [id number] MTDDerik
== END 2016-05-29 18:45 | disposition home health service (06) | DRG 603 ==
LOC: ED 14:02 → MED 17:04 → OBSVTOIN 05-26 11:19
PROVIDERS: ADMIT Internal Medicine; ATTEND Internal Medicine
DX: L03.113 Cellulitis of right upper limb (principal); N17.9 Acute kidney failure, unspecified; I95.9 Hypotension, unspecified; I10 Essential (primary) hypertension; S61.451A Open bite of right hand, initial encounter; D72.829 Elevated white blood cell count, unspecified; J45.909 Unspecified asthma, uncomplicated; F41.9 Anxiety disorder, unspecified; F32.9 Major depressive disorder, single episode, unspecified; M54.9 Dorsalgia, unspecified; G89.29 Other chronic pain; R01.1 Cardiac murmur, unspecified; M19.90 Unspecified osteoarthritis, unspecified site; J45.20 Mild intermittent asthma, uncomplicated; Z96.642 Presence of left artificial hip joint; H91.93 Unspecified hearing loss, bilateral; S60.511A Abrasion of right hand, initial encounter; R53.1 Weakness; R19.7 Diarrhea, unspecified; Z98.49 Cataract extraction status, unspecified eye; Z82.49 Family history of ischemic heart disease and other diseases of the circulatory system; Z90.710 Acquired absence of both cervix and uterus; W55.01XA Bitten by cat, initial encounter; Z80.0 Family history of malignant neoplasm of digestive organs; Z72.89 Other problems related to lifestyle; Z88.2 Allergy status to sulfonamides; Z97.4 Presence of external hearing-aid; Z85.89 Personal history of malignant neoplasm of other organs and systems; W55.03XA Scratched by cat, initial encounter
CPT/HCPCS: 36415; 80048; 80053; 83605; 85025; 86140; 87040; 94760; A9270-GY; G0378; G8978-GP-CJ; G8979-GP-CI; G8980-GP-CI; J1650; J2405; J2543

== ENCOUNTER 2016-06-04 13:59 | Inpatient (IN) | payer MEDICARE ==
[2016-06-04] MEDS ORDERED: Acetaminophen TAB* 325 MG PO ONE (14:57)
--- NOTE | 2016-06-04 15:43 | RAD ---
INDICATION: Dizziness after striking occiput COMPARISON: Most recent CT of the brain dated January 03, 2015 TECHNIQUE: Contiguous axial sections of the brain were obtained from the skull base to the vertex without contrast. FINDINGS: The ventricles, cisterns and sulci exhibit symmetric involutional changes similar in appearance to the most recent CT of the brain. There is diffuse as well as multifocal patchy periventricular and subcortical white matter hypoattenuation similar in appearance to the previous CT of the brain most consistent with chronic microvascular disease. Otherwise the reilly-white matter differentiation is adequately maintained and there is no sulcal effacement. No significant focal abnormality or mass effect is present. There is no evidence for intracranial hemorrhage. Calcified atherosclerosis is noted the bilateral petrous carotid arteries. No significant focal osseous abnormality is present. The mastoid air cells appear clear. There is near complete opacification of the left sphenoid sinus and approximately half opacification of the right sphenoid sinus. There is moderate mucosal thickening of the bilateral ethmoid air cells. IMPRESSION: 1. No CT evidence of acute intracranial hemorrhage or calvarial fracture. 2. Stable degenerative changes include involutional changes and moderate microvascular disease. 3. Paranasal sinus mucosal disease is slightly worse when compared to the most recent CT of the brain dated January 03, 2015.
[2016-06-04 15:55] LABS: Hematocrit 34 % (35-47); Hemoglobin 11.3 g/dl (12.0-16.0); Mean Corpuscular HGB Conc 34 g/dl (31-36); Mean Corpuscular Hemoglobin 30 pg (27-31); Mean Corpuscular Volume 89 fL (80-97); Mean Platelet Volume 7 um3 (7.4-10.4); Red Cell Distribution Width 13 % (10.5-15); White Blood Count 16.6 10^3/ul (3.5-10.8)
[2016-06-04 15:56] LABS: Add Diff/Slide Review? Slide Review Added; Comments Flag Yes
--- NOTE | 2016-06-04 15:58 | ED ---
Head Injury - HPI Summary HPI Summary: Patient arrives to ED with CC of lumbar sacral pain and head injury after falling and hitting her head this afternoon. Denies LOC, memory changes or visual disturbances. States she was cleaning out her cats litter box when she felt her legs weaken and fell backwards, hitting her head and falling on her sacral area. She has asthma, but denies other health problems. She is not on blood thinners. Denies recent med change and endorses eating and drinking well. Denies previous injury to the area, but notes chronic back pain at baseline. Patient was seen last week and admitted for weakness. Noted cellulitic infection in armpit area and possible cellulitis from cat scratch and bite on right wrist. However, patient mentions she did not greens picker any antibiotics for these infections d/t not having rides anywhere. - History Of Current Complaint Hx Obtained From: Patient Mechanism Of Injury: Fall From Height Of: - sitting position Onset/Duration: Started Hours Ago Onset of Pain: Immediate Severity Currently: Severe Pain Intensity: 10 Pain Scale Used: 0-10 Numeric Location of Head Injury: Occipital Location: Discrete At: - sacral area and occipital lobe Character: Throbbing, Pressure Aggravating Factor(s): Movement Associated Signs And Symptoms: Negative <Jasmine Lomeli - Last Filed: 06/04/16 17:24> <Yefri Murguia - Last Filed: 06/05/16 22:12> - History Of Current Complaint Chief Complaint: EDGeneral Stated Complaint: FALL / DIZZY Time Seen by Provider: 06/04/16 14:18 - Allergies/Home Medications Allergies/Adverse Reactions: Allergies Allergy/AdvReac Type Severity Reaction Status Date / Time Sulfa Antibiotics Allergy Rash Verified 06/04/16 14:09 PMH/Surg Hx/FS Hx/Imm Hx Previously Healthy: Yes Endocrine/Hematology History: Denies: Hx Anticoagulant Therapy, Hx Diabetes, Hx Thyroid Disease, Hx Unexplained Bleeding Cardiovascular History: Reports: Hx Hypertension Denies: Hx Pacemaker/ICD Respiratory History: Reports: Hx Asthma Denies: Hx Chronic Obstructive Pulmonary Disease (COPD) History: Denies: Hx Renal Disease Musculoskeletal History: Reports: Hx Arthritis, Other Musculoskeletal History - Osteoarthritis Denies: Hx Rheumatoid Arthritis, Hx Osteoporosis Sensory History: Reports: Hx Contacts or Glasses, Hx Hearing Aid - BOTH, Hx Hearing Problem Opthamlomology History: Reports: Hx Contacts or Glasses Neurological History: Denies: Hx Dementia, Hx Seizures, Other Neuro Impairments/Disorders Psychiatric History: Reports: Hx Anxiety, Hx Depression Denies: Hx Panic Disorder, Hx Substance Abuse - Cancer History Cancer Type, 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 Lt HIP REPAIR - FX- 05/2014. CATARACT - Immunization History Date of Tetanus Vaccine: 05/22/12 Date of Influenza Vaccine: 05/24/12 Infectious Disease History: No Infectious Disease History: Denies: Hx Hepatitis, Hx Human Immunodeficiency Virus (HIV), Hx of Known/ Suspected MRSA, Traveled Outside the [place] in Last 30 Days - Family History Known Family History: Positive: None Family History: Denies FHx of breast cancer. - Social History Occupation: Retired Lives: With Family Alcohol Use: None Hx Substance Use: No Substance Use Type: Reports: None Smoking Status (MU): Never Smoked Tobacco <Jasmine Lomeli - Last Filed: 06/04/16 17:24> Review of Systems Constitutional: Negative Eyes: Negative ENT: Negative Cardiovascular: Negative Positive: Other - always feels whezy d/t asthma Gastrointestinal: Negative Positive: no symptoms reported, see HPI Positive: Arthralgia - sacral pain on palpation Skin: Negative Positive: Weakness Psychological: Normal All Other Systems Reviewed And Are Negative: Yes <Jasmine Lomeli - Last Filed: 06/04/16 17:24> Physical Exam Triage Information Reviewed: Yes Vital Signs On Initial Exam: Initial Vitals Temp Pulse Resp BP Pulse Ox 98.7 F 89 18 152/76 87 06/04/16 14:09 06/04/16 14:09 06/04/16 14:09 06/04/16 14:09 06/04/16 14:09 Vital Signs Reviewed: Yes Appearance: Positive: Well-Appearing, Cachectic Skin: Positive: Warm, Skin Color Reflects Adequate Perfusion, Scaly Skin/ Lesions - multiple seborrheic keratosis Head/Face: Positive: Normal Head/Face Inspection Eyes: Positive: Normal, EOMI ENT: Positive: TMs normal Neck: Positive: Supple, Nontender Respiratory/Lung Sounds: Positive: Clear to Auscultation, Wheezes - at baseline per patient d/t asthma Cardiovascular: Positive: Normal, RRR Abdomen Description: Positive: Nontender, No Organomegaly Bowel Sounds: Positive: Present Musculoskeletal: Positive: Strength/ROM Intact, Pain @ - sacral bone midline Neurological: Positive: Normal, Sensory/Motor Intact, Speech Normal Psychiatric: Positive: Normal AVPU Assessment: Alert - Hawkins Coma Scale Coma Scale Total: 15 <Jasmine Lomeli - Last Filed: 06/04/16 17:24> Vital Signs On Initial Exam: Initial Vitals Temp Pulse Resp BP Pulse Ox 37.1 C 89 18 152/76 87 06/04/16 14:09 06/04/16 14:09 06/04/16 14:09 06/04/16 14:09 06/04/16 14:09 <Yefri Murguia - Last Filed: 06/05/16 22:12> Diagnostics - Vital Signs Vital Signs Temp Pulse Resp BP Pulse Ox 06/04/16 14:09 98.7 F 89 18 152/76 87 - Laboratory Result Diagrams: 06/04/16 15:45 06/04/16 15:45 Lab Statement: Any lab studies that have been ordered have been reviewed, and results considered in the medical decision making process. - Radiology No standard instances Xray Interpretation: No Acute Changes Radiology Interpretation Completed By: Radiologist - no actue changes since previous LS xray <Jasmine Lomeli - Last Filed: 06/04/16 17:24> - Vital Signs Vital Signs Temp Pulse Resp BP Pulse Ox 06/05/16 11:58 16 06/05/16 11:33 36.2 C 62 14 125/33 99 06/05/16 09:58 18 06/05/16 08:01 36.4 C 64 14 147/64 97 06/05/16 08:00 14 06/05/16 07:21 24 06/05/16 05:21 16 06/05/16 04:11 18 06/05/16 03:19 59 18 133/58 98 06/05/16 01:39 18 06/04/16 23:39 20 06/04/16 23:06 36.9 C 63 16 130/54 96 06/04/16 21:33 20 06/04/16 20:26 36.2 C 88 16 139/67 89 06/04/16 20:01 16 02/11/17 19:33 20 06/04/16 19:11 18 06/04/16 14:09 37.1 C 89 18 152/76 87 - Laboratory Lab Results: Lab Results 06/04/16 06/04/16 06/04/16 Range/Units 15:45 15:45 15:45 WBC 16.6 H (3.5-10.8) 10^3/ul RBC 3.80 L (4.0-5.4) 10^6/ul Hgb 11.3 L (12.0-16.0) g/dl Hct 34 L (35-47) % MCV 89 (80-97) fL MCH 30 (27-31) pg MCHC 34 (31-36) g/dl RDW 13 (10.5-15) % Plt Count 418 (150-450) 10^3/ul MPV 7 L (7.4-10.4) um3 Neut % (Auto) 87.9 H (38-83) % Lymph % (Auto) 7.1 L (25-47) % [place] % (Auto) 3.9 (1-9) % Eos % (Auto) 0.5 (0-6) % Baso % (Auto) 0.6 (0-2) % Absolute Neuts (auto) 14.5 H (1.5-7.7) 10^3/ul Absolute Lymphs (auto) 1.2 (1.0-4.8) 10^3/ul Absolute Monos (auto) 0.6 (0-0.8) 10^3/ul Absolute Eos (auto) 0.1 (0-0.6) 10^3/ul Absolute Basos (auto) 0.1 (0-0.2) 10^3/ul Absolute Nucleated RBC 0.01 10^3/ul Nucleated RBC % 0.1 Sodium 136 (133-145) mmol/L Potassium 3.9 (3.5-5.0) mmol/L Chloride 100 L (101-111) mmol/L Carbon Dioxide 30 (22-32) mmol/L Anion Gap 6 (2-11) mmol/L BUN 13 (6-24) mg/dL Creatinine 0.83 (0.51-0.95) mg/dL Est GFR ( Amer) 83.8 (>60) Est GFR (Non-Af Amer) 65.2 (>60) BUN/Creatinine Ratio 15.7 (8-20) Glucose 114 H (70-100) mg/dL Lactic Acid 1.0 (0.5-2.0) mmol/L Calcium 10.1 (8.6-10.3) mg/dL Magnesium 2.0 (1.9-2.7) mg/dL Total Bilirubin 0.40 (0.2-1.0) mg/dL AST 21 (13-39) U/L ALT 17 (7-52) U/L Alkaline Phosphatase 67 (34-104) U/L Total Protein 7.8 (6.4-8.9) g/dL Albumin 4.3 (3.2-5.2) g/dL Globulin 3.5 (2-4) g/dL Albumin/Globulin Ratio 1.2 (1-3) TSH 0.31 L (0.34-5.60) mcIU/mL 06/05/16 Range/Units 05:08 WBC 14.8 H (3.5-10.8) 10^3/ul RBC 3.53 L (4.0-5.4) 10^6/ul Hgb 10.5 L (12.0-16.0) g/dl Hct 31 L (35-47) % MCV 88 (80-97) fL MCH 30 (27-31) pg MCHC 34 (31-36) g/dl RDW 14 (10.5-15) % Plt Count 383 (150-450) 10^3/ul MPV 7 L (7.4-10.4) um3 Neut % (Auto) 68.9 (38-83) % Lymph % (Auto) 21.0 L (25-47) % [place] % (Auto) 6.4 (1-9) % Eos % (Auto) 2.6 (0-6) % Baso % (Auto) 1.1 (0-2) % Absolute Neuts (auto) 10.2 H (1.5-7.7) 10^3/ul Absolute Lymphs (auto) 3.1 (1.0-4.8) 10^3/ul Absolute Monos (auto) 1.0 H (0-0.8) 10^3/ul Absolute Eos (auto) 0.4 (0-0.6) 10^3/ul Absolute Basos (auto) 0.2 (0-0.2) 10^3/ul Absolute Nucleated RBC 0 10^3/ul Nucleated RBC % 0 Sodium (133-145) mmol/L Potassium (3.5-5.0) mmol/L Chloride (101-111) mmol/L Carbon Dioxide (22-32) mmol/L Anion Gap (2-11) mmol/L BUN (6-24) mg/dL Creatinine (0.51-0.95) mg/dL Est GFR ( Amer) (>60) Est GFR (Non-Af Amer) (>60) BUN/Creatinine Ratio (8-20) Glucose (70-100) mg/dL Lactic Acid (0.5-2.0) mmol/L Calcium (8.6-10.3) mg/dL Magnesium (1.9-2.7) mg/dL Total Bilirubin (0.2-1.0) mg/dL AST (13-39) U/L ALT (7-52) U/L Alkaline Phosphatase (34-104) U/L Total Protein (6.4-8.9) g/dL Albumin (3.2-5.2) g/dL Globulin (2-4) g/dL Albumin/Globulin Ratio (1-3) TSH (0.34-5.60) mcIU/mL Result Diagrams: 06/05/16 05:08 06/04/16 15:45 Lab Statement: Any lab studies that have been ordered have been reviewed, and results considered in the medical decision making process. <Yefri Murguia - Last Filed: 06/05/16 22:12> Head Injury Course/Dx Course Of Treatment: CT brain and lumbarsacral Xray showed no acute findings/ changes. Labs showed elevated WBC. However, patient has been with a high WBC count for some time. Has noted cellulitic infections in armpit and right wrist which she has not started taking her prescribed antitbitiocs. Patient was admitted last week for weakness. Today, she notes some weakness which led to her fall. Refusing to ambulate for provider. Refusing to have sutures removed. Refusing to give urine sample. Walks with walker at baseline and lives alone. - Diagnoses Differential Diagnosis/HQI/PQRI: Concussion Without LOC, Contusion, Intracranial Bleed <Jasmine Lomeli - Last Filed: 06/04/16 17:24> <Yefri Murguia - Last Filed: 06/05/16 22:12> - Diagnoses Provider Diagnoses: Cellulitis Discharge <Jasmine Lomeli - Last Filed: 06/04/16 17:24> <Yefri Murguia - Last Filed: 06/05/16 22:12> - Discharge Plan Condition: Good Disposition: ADMITTED TO [facility]
[2016-06-04 16:08] LABS: Albumin 4.3 g/dL (3.2-5.2); BUN/Creatinine Ratio 15.7 (8-20); Calcium 10.1 mg/dL (8.6-10.3); EGFR African American 83.8 (>60); EGFR Non-African American 65.2 (>60); Globulin 3.5 g/dL (2-4); Potassium 3.9 mmol/L (3.5-5.0); Total Bilirubin 0.4 mg/dL (0.2-1.0); Total Protein 7.8 g/dL (6.4-8.9)
--- NOTE | 2016-06-04 16:11 | RAD ---
INDICATION: Low back pain after a traumatic fall COMPARISON: CT of the abdomen and pelvis dated October 10, 2014 TECHNIQUE: 5 views of the lumbar spine were obtained. FINDINGS: In the AP view there is a small degree of levoconvex curvature of the lumbar spine. On the lateral view images there are compression deformities involving L2-L5 vertebral bodies that appear to correspond to findings from the sixth 1914 CT examination. Additional degenerative changes include loss of intervertebral disc height and bony proliferation overlying the facet joints. There is no definite new fracture or dislocation. . IMPRESSION: Multilevel degenerative changes including chronic compression deformities of the lumbar vertebrae as described above.
[2016-06-04 16:59] LABS: TSH (Thyroid Stimulating Horm) 0.31 mcIU/mL (0.34-5.60)
[2016-06-04] MEDS ORDERED: Morphine INJ* 2 MG/ML 1 ML CARPUJECT IV ONE (17:11)
--- NOTE | 2016-06-04 18:35 | PN ---
Progress Note - Progress Note Note: Removal of sutures of right arm, placed on 05/24 Laceration has no evidence of dehiscence present, patient wanted topical numbing medication before would let remove sutures. placed topical lidocaine and removed: 1 suture palmar aspect of right forearm 2 sutures removed one laceration, 3 sutures removed another laceration of dorsal aspect of forearm
--- NOTE | 2016-06-04 18:40 | RAD ---
INDICATION: Low back pain after a traumatic fall COMPARISON: CT abdomen pelvis dated October 10, 2014 TECHNIQUE: Contiguous axial sections were obtained beginning lower thoracic vertebra and continuing through the sacrum. Images were reconstructed in the sagittal and coronal planes. FINDINGS: Depicted best on the coronal plane images (image 49 and 55) and also on the axial images (image 98) there is cortical discontinuity at the right posterior iliac spine of the iliac bone. Again seen are compression deformities involving the L2-L5 vertebral bodies. There is been slight increase in the degree of compression involving the L3 vertebral body. Degenerative changes elsewhere include loss of intervertebral disc height as well as vacuum disc phenomenon at lumbar spine. There is no definite new fracture or dislocation identified. There is no hyperdense material in the thecal sac to indicate acute intrathecal hemorrhage. Evaluation of the axial images reveals the following: There is broad-based disc protrusion eccentric towards the right at L3/L4 that combines with facet arthropathy and thickening of ligamentum flavum to cause moderate central canal stenosis. Broad-based disc protrusion and facet arthropathy combine at L4/L5 to cause moderate central canal stenosis. IMPRESSION: 1. Possible nondisplaced fracture involving the right posterior inferior iliac spine of the right ilium. 2. Chronic compression deformities of the lumbar vertebral bodies similar in appearance to the CT examination dated October 10, 2014. There is multilevel degenerative disc disease that will be better evaluated on MRI of the lumbar spine if it will influence clinical management.
[2016-06-04] MEDS ORDERED: Cetirizine* 10 MG TAB PO PRN (19:19)
[2016-06-04] MEDS ORDERED: Albuterol HFA INHALER* 8 gm MDI INH PRN (19:19)
[2016-06-04] MEDS ORDERED: Docusate CAP* 100 MG PO PRN (19:19)
[2016-06-04] MEDS: oxyCODONE/Acetamin 5/325 MG* TAB PO PRN ×2 (19:33→23:39)
[2016-06-04] MEDS: Amoxicillin/Clavulanate TAB* 875 MG PO SCH (20:17)
[2016-06-04] MEDS: Propranolol TAB* 20 MG PO SCH (20:17)
[2016-06-04] MEDS: Acetaminophen TAB* 325 MG PO PRN (20:17)
[2016-06-04] MEDS ORDERED: Rabies Vaccine (RabAvert)* 2.5 UNITS VIAL IM ONE (21:00)
[2016-06-04] MEDS: Rabies VIRUS VACCINE (Imovax)* 2.5 UNIT/ML 1 ML IM ONE ×2 (23:27→23:49)
[2016-06-04] MEDS: Enoxaparin(*) 40 MG/0.4 ML SYR SUBCUT SCH (23:32)
--- NOTE | 2016-06-05 00:28 | HP ---
ADMISSION HISTORY AND PHYSICAL: DATE OF ADMISSION: 06/04/16 PRIMARY CARE PROVIDER: Lori Redding NP ADMITTING PROVIDER: LANA Dinh SUPERVISING PHYSICIAN: Gretchen Jaramillo MD* (DICTATED BY LANA DINH) CHIEF COMPLAINT: Fall at home with back pain. HISTORY OF PRESENT ILLNESS: This is an 86-year-old female with history of mild persistent asthma, hypertension, anxiety and chronic back pain who sustained a fall at home earlier today, falling on to her buttocks and also striking her head who presented for further evaluation with a primary complaint of low back pain. The patient was discharged on 05/29/16 after treatment for cellulitis secondary to a cat bite. The patient was discharged with an additional 10 days of Augmentin and instructions to follow up to complete her rabies series. The patient states she is not following up with her primary care provider since leaving the hospital, but does have a scheduled followup on Monday. There was initial concern that the patient had not been taking her antibiotics at home as prescribed since leaving the hospital. Upon further clarification, the patient stated that she did not get a chance to take her Augmentin today, but she has been taking it on other prior days consistently as prescribed. The pain, erythema and edema in her right arm has resolved and she denies any new complaints in regards to that. She has been afebrile at home. She has a chronic intermittent cough which she blames on her asthma, but states otherwise she has been feeling well. Her fall today was due to leg weakness, she was bending over and cleaning out the litter box for her cat when her legs suddenly felt weak and she fell backwards. The patient states that she has otherwise been doing well since she got home. No other falls and her energy has been back to baseline. Her appetite has been good. PAST MEDICAL HISTORY: 1. Asthma, mild persistent. 2. Hypertension. 3. Anxiety and depression. 4. Chronic back pain secondary to osteoarthritis. PAST SURGICAL HISTORY: 1. Hysterectomy. 2. Left total hip replacement. 3. Cataract surgery. 4. Skin excision for squamous cell carcinoma. HOME MEDICATIONS: 1. Acetaminophen 650 mg p.o. q.12 hours as needed for pain. 2. Albuterol sulfate 2 puffs inhaled q.4 hours as needed for shortness of breath. 3. Augmentin 875/125 mg one tablet p.o. b.i.d. total of x10 days through June 07. 4. Docusate 100 mg p.o. daily as needed for constipation. 5. Calcium and vitamin D supplementation. 6. Lisinopril 2.5 mg p.o. daily. 7. Loratadine 10 mg p.o. daily. 8. Paxil 20 mg p.o. daily. 9. Propranolol 20 mg p.o. b.i.d. FAMILY HISTORY: The patient's father of an acute NE. Mother of stomach cancer. Sister also of stomach cancer. She has 2 children, which are alive and well. SOCIAL HISTORY: The patient lives alone. Her daughter lives down the street and touches base with her frequently. She is retired from [employer]. Denies smoking history and regular alcohol consumption. REVIEW OF SYSTEMS: As noted above in the HPI and otherwise negative. PHYSICAL EXAMINATION GENERAL: This is a pleasant elderly female in no acute distress, lying on her side in the hospital stretcher. INITIAL VITALS: Temperature 98.7 degrees Fahrenheit, pulse 89 beats per minute , respiratory rate 18 per minute, oxygen saturation 92% on room air and blood pressure 152/76 mmHg. HEENT: Head is normocephalic, atraumatic. Mucous membranes are pink and moist. She is missing the majority of her front teeth. RESPIRATORY: Lungs are clear to auscultation without wheezes, crackles, or rhonchi. CARDIOVASCULAR: The patient has a murmur appreciated, but regular rate and rhythm. ABDOMEN: Soft and nontender to palpation. EXTREMITIES: No lower extremity edema. SKIN: Evaluated prior area of cellulitis. There is no residual edema, prior lacerations have healed appropriately and sutures were taken out by emergency department provider earlier today. The patient has no pain with range of motion. PSYCH: The patient is alert and appropriately oriented. MUSCULOSKELETAL: No pain in the right upper extremity. She does have some tenderness to palpation over her lower lumbar spine and sacrum. Gait was not assessed. ASSESSMENT AND PLAN: This is an 86-year-old female with mild persistent asthma , hypertension and chronic low back pain who was recently discharged due to cellulitis after a cat bite. She sustained a fall at home today and has significant low back pain. The patient will be admitted for pain control. 1. Intractable back pain - the patient is complaining of lumbar and sacral pain inhibits from ambulating appropriately. She does live alone and will be admitted to the hospital overnight for additional pain control. There is a possible fracture appreciated in the right posterior superior iliac spine. There are multiple chronic compression deformities. Location of the patient's pain is rather diffuse in the lumbar and sacral area and does not seem to be pinpoint to the right PSIS. This would otherwise be a stable fracture and does not require specific intervention. 2. Recent cellulitis and cat scratch - there was concern based on interview earlier with emergency department provider that the patient had not been taking her Augmentin at home, but upon clarification she simply meant that she did not take it today, but she has been taking it appropriately otherwise. She was discharged with a total of 10 days of Augmentin with instructions take through June 07. The site of prior cellulitis looks improved and stitches were removed today. We will plan to continue oral Augmentin. The patient does have moderate leukocytosis appreciated on labs today, but is afebrile and otherwise feeling well. This might be a leukemoid reaction secondary to her fall today. I will plan to repeat a CBC tomorrow. The patient has followup with her primary care provider tomorrow meaning that she missed her 7-day rabies vaccine. She did receive her 0 and 3 day that is a couple of days of her 7-day period that will be provided this evening for her. She will need additional vaccines on day 14 and 28 to complete her post-exposure prophylaxis. 3. Mild persistent asthma without evidence of acute exacerbation. Continue to use p.r.n. albuterol. 4. Hypertension. Plan to continue her propranolol. 5. Anxiety. 6. Code status. The patient is full code. 7. Healthcare proxy is the patient's daughter. 8. DVT prophylaxis. She will be placed on Lovenox subcu daily. DISPOSITION: The patient is being admitted for observation status for pain control to her low back. Anticipate discharge home tomorrow following physical therapy evaluation. LANA DINH CC: Lori Redding NP * [id number]/[facility] #: [id number] [facility]
[2016-06-05 05:20] LABS: Hematocrit 31 % (35-47); Hemoglobin 10.5 g/dl (12.0-16.0); Mean Corpuscular HGB Conc 34 g/dl (31-36); Mean Corpuscular Hemoglobin 30 pg (27-31); Mean Corpuscular Volume 88 fL (80-97); Mean Platelet Volume 7 um3 (7.4-10.4); Red Blood Count 3.53 10^6/ul (4.0-5.4); Red Cell Distribution Width 14 % (10.5-15); White Blood Count 14.8 10^3/ul (3.5-10.8)
[2016-06-05] MEDS: oxyCODONE/Acetamin 5/325 MG* TAB PO PRN ×2 (05:21→09:58)
[2016-06-05] MEDS: Propranolol TAB* 20 MG PO SCH ×2 (09:59→19:24)
[2016-06-05] MEDS: PARoxetine HCL TAB* 20 MG PO SCH (09:59)
[2016-06-05] MEDS: Lisinopril TAB* 5 MG PO SCH (09:59)
[2016-06-05] MEDS: Amoxicillin/Clavulanate TAB* 875 MG PO SCH ×2 (09:59→19:24)
--- NOTE | 2016-06-05 15:40 | PN ---
Subjective Date of Service: 06/05/16 Interval History: Patient seen this morning. Hard of hearing. Reports continued pain in the low back/buttocks. No other complaints. Nursing concerned patient was getting a little sedated with percocet. Family History: Unchanged from Admission Social History: Unchanged from Admission Past Medical History: Unchanged from Admission Objective Active Medications: Acetaminophen (Tylenol Tab*) 650 mg PO Q4H PRN Albuterol (Ventolin Hfa Inhaler*) 2 puff INH Q4H PRN Amoxicillin/Clavulanate Potassium (Augmentin Tab*) 875 mg PO BID JEFE Cetirizine HCl (Zyrtec*) 10 mg PO DAILY PRN Docusate Sodium (Colace Cap*) 100 mg PO DAILY PRN Enoxaparin Sodium (Lovenox(*)) 40 mg SUBCUT Q24H JEFE Lisinopril (Prinivil Tab*) 2.5 mg PO DAILY JEFE Paroxetine HCl (Paxil Tab*) 20 mg PO DAILY JEFE Propranolol HCl (Inderal Tab*) 20 mg PO BID JEFE Tramadol HCl (Ultram*) 50 mg PO Q4H PRN Oxygen Devices in Use Now: Nasal Cannula - 2L Appearance: Elderly, F, sitting in chair in NAD Eyes: No Scleral Icterus Ears/Nose/Mouth/Throat: Mucous Membranes Moist Neck: NL Appearance and Movements; NL JVP Respiratory: Symmetrical Chest Expansion and Respiratory Effort, Clear to Auscultation Cardiovascular: RRR, - - JEFFRY Abdominal: NL Sounds; No Tenderness; No Distention Lymphatic: No Cervical Adenopathy Extremities: No Edema, - - TTP along R lateral sacrum and buttocks Skin: No Rash or Ulcers Neurological: - - Alert, oriented, no focal deficits Result Diagrams: 06/05/16 05:08 06/04/16 15:45 Assess/Plan/Problems-Billing Assessment: Back pain, non-displaced fx of posterior superior iliac spine in an 86 yo F with hx of HTN, chronic back pain, asthma, recent cellulitis from cat scratch/ bite - Patient Problems (1) Back pain Current Visit: Yes Comment: 05/26 fall, fx of R PSIS. Will switch percocet to tramadol. PT eval pending. (2) Cellulitis Current Visit: No Comment: Secondary to cat bite/scratch. Healing well. Continue Augmentin through 2/14. Will need outpatient f/u for rabies shots. (3) History of asthma Current Visit: No Comment: Wean off O2. Albuterol prn (4) Hypertension Current Visit: No Comment: Continue home Lisinopril and Propranolol (5) DVT prophylaxis Current Visit: No Comment: lovenox Status and Disposition: May need HARRISON, PT eval pending
[2016-06-05] MEDS: Enoxaparin(*) 40 MG/0.4 ML SYR SUBCUT SCH (19:24)
[2016-06-05] MEDS: traMADol TAB* 50 MG PO PRN (23:46)
[2016-06-06] MEDS: PARoxetine HCL TAB* 20 MG PO SCH (07:57)
[2016-06-06] MEDS: Propranolol TAB* 20 MG PO SCH ×2 (07:57→20:29)
[2016-06-06] MEDS: Lisinopril TAB* 5 MG PO SCH (07:57)
[2016-06-06] MEDS: Amoxicillin/Clavulanate TAB* 875 MG PO SCH ×2 (07:57→20:29)
[2016-06-06] MEDS: traMADol TAB* 50 MG PO PRN (08:16)
--- NOTE | 2016-06-06 14:16 | PN ---
Subjective Date of Service: 06/06/16 Interval History: Pt feels tired. Poor historian. After some encouragement pt got up with one person assistance and ambulated slow and steady within the room with a a roller walker appprox 10 feet. Family History: Unchanged from Admission Social History: Unchanged from Admission Past Medical History: Unchanged from Admission Objective Active Medications: Acetaminophen (Tylenol Tab*) 650 mg PO Q4H PRN PRN Reason: FEVER/PAIN Last Admin: 06/04/16 20:17 Dose: 650 mg Albuterol (Ventolin Hfa Inhaler*) 2 puff INH Q4H PRN PRN Reason: SHORTNESS OF BREATH Last Admin: 06/06/16 08:16 Dose: 2 puff Amoxicillin/Clavulanate Potassium (Augmentin Tab*) 875 mg PO BID [facility] Last Admin: 06/06/16 07:57 Dose: 875 mg Cetirizine HCl (Zyrtec*) 10 mg PO DAILY PRN PRN Reason: Allergy Symptoms Docusate Sodium (Colace Cap*) 100 mg PO DAILY PRN PRN Reason: CONSTIPATION Enoxaparin Sodium (Lovenox(*)) 40 mg SUBCUT Q24H [facility] Last Admin: 06/05/16 19:24 Dose: 40 mg Lisinopril (Prinivil Tab*) 2.5 mg PO DAILY [facility] Last Admin: 06/06/16 07:57 Dose: 2.5 mg Paroxetine HCl (Paxil Tab*) 20 mg PO DAILY [facility] Last Admin: 06/06/16 07:57 Dose: 20 mg Propranolol HCl (Inderal Tab*) 20 mg PO BID [facility] Last Admin: 06/06/16 07:57 Dose: 20 mg Tramadol HCl (Ultram*) 50 mg PO Q4H PRN PRN Reason: PAIN Last Admin: 06/06/16 08:16 Dose: 50 mg Vital Signs 06/05/16 06/05/16 06/05/16 15:53 17:06 19:28 Temperature 97.7 F Pulse Rate 59 Respiratory 22 18 Rate Blood Pressure 104/53 106/38 (mmHg) O2 Sat by Pulse 99 Oximetry 06/05/16 06/05/16 06/06/16 23:11 23:46 03:56 Temperature Pulse Rate 65 76 Respiratory 16 18 Rate Blood Pressure 125/49 138/57 (mmHg) O2 Sat by Pulse 95 81 Oximetry 06/06/16 06/06/16 06/06/16 03:57 07:19 07:51 Temperature 97.7 F Pulse Rate 67 Respiratory 18 16 Rate Blood Pressure 124/57 (mmHg) O2 Sat by Pulse 91 92 Oximetry 06/06/16 06/06/16 06/06/16 08:16 10:16 11:25 Temperature 98.2 F Pulse Rate 56 Respiratory 24 18 16 Rate Blood Pressure 112/47 (mmHg) O2 Sat by Pulse 98 Oximetry Oxygen Devices in Use Now: Nasal Cannula - 2L Appearance: 86 yo f in nAd, aAOx2 Eyes: No Scleral Icterus, PERRLA Ears/Nose/Mouth/Throat: NL Teeth, Lips, Gums, Mucous Membranes Moist Neck: NL Appearance and Movements; NL JVP, Trachea Midline Respiratory: Symmetrical Chest Expansion and Respiratory Effort, Clear to Auscultation Cardiovascular: RRR - 2/6 JEFFRY at RUSB, 2/6 JEFFRY at apex Abdominal: NL Sounds; No Tenderness; No Distention Lymphatic: No Cervical Adenopathy Extremities: No Edema Skin: No Nodules or Sclerosis, - - R wrist and dorsum of hand with no cellulitis noted, covered with eschar , healing Neurological: NL Muscle Strength and Tone Result Diagrams: 06/05/16 05:08 06/04/16 15:45 Additional Lab and Data: Lab Results 06/04/16 06/04/16 06/04/16 Range/Units 15:45 15:45 15:45 WBC 16.6 H (3.5-10.8) 10^3/ul RBC 3.80 L (4.0-5.4) 10^6/ul Hgb 11.3 L (12.0-16.0) g/dl Hct 34 L (35-47) % MCV 89 (80-97) fL MCH 30 (27-31) pg MCHC 34 (31-36) g/dl RDW 13 (10.5-15) % Plt Count 418 (150-450) 10^3/ul MPV 7 L (7.4-10.4) um3 Neut % (Auto) 87.9 H (38-83) % Lymph % (Auto) 7.1 L (25-47) % [place] % (Auto) 3.9 (1-9) % Eos % (Auto) 0.5 (0-6) % Baso % (Auto) 0.6 (0-2) % Absolute Neuts (auto) 14.5 H (1.5-7.7) 10^3/ul Absolute Lymphs (auto) 1.2 (1.0-4.8) 10^3/ul Absolute Monos (auto) 0.6 (0-0.8) 10^3/ul Absolute Eos (auto) 0.1 (0-0.6) 10^3/ul Absolute Basos (auto) 0.1 (0-0.2) 10^3/ul Absolute Nucleated RBC 0.01 10^3/ul Nucleated RBC % 0.1 Sodium 136 (133-145) mmol/L Potassium 3.9 (3.5-5.0) mmol/L Chloride 100 L (101-111) mmol/L Carbon Dioxide 30 (22-32) mmol/L Anion Gap 6 (2-11) mmol/L BUN 13 (6-24) mg/dL Creatinine 0.83 (0.51-0.95) mg/dL Est GFR ( Amer) 83.8 (>60) Est GFR (Non-Af Amer) 65.2 (>60) BUN/Creatinine Ratio 15.7 (8-20) Glucose 114 H (70-100) mg/dL Lactic Acid 1.0 (0.5-2.0) mmol/L Calcium 10.1 (8.6-10.3) mg/dL Magnesium 2.0 (1.9-2.7) mg/dL Total Bilirubin 0.40 (0.2-1.0) mg/dL AST 21 (13-39) U/L ALT 17 (7-52) U/L Alkaline Phosphatase 67 (34-104) U/L Total Protein 7.8 (6.4-8.9) g/dL Albumin 4.3 (3.2-5.2) g/dL Globulin 3.5 (2-4) g/dL Albumin/Globulin Ratio 1.2 (1-3) TSH 0.31 L (0.34-5.60) mcIU/mL 06/05/16 Range/Units 05:08 WBC 14.8 H (3.5-10.8) 10^3/ul RBC 3.53 L (4.0-5.4) 10^6/ul Hgb 10.5 L (12.0-16.0) g/dl Hct 31 L (35-47) % MCV 88 (80-97) fL MCH 30 (27-31) pg MCHC 34 (31-36) g/dl RDW 14 (10.5-15) % Plt Count 383 (150-450) 10^3/ul MPV 7 L (7.4-10.4) um3 Neut % (Auto) 68.9 (38-83) % Lymph % (Auto) 21.0 L (25-47) % [place] % (Auto) 6.4 (1-9) % Eos % (Auto) 2.6 (0-6) % Baso % (Auto) 1.1 (0-2) % Absolute Neuts (auto) 10.2 H (1.5-7.7) 10^3/ul Absolute Lymphs (auto) 3.1 (1.0-4.8) 10^3/ul Absolute Monos (auto) 1.0 H (0-0.8) 10^3/ul Absolute Eos (auto) 0.4 (0-0.6) 10^3/ul Absolute Basos (auto) 0.2 (0-0.2) 10^3/ul Absolute Nucleated RBC 0 10^3/ul Nucleated RBC % 0 Sodium (133-145) mmol/L Potassium (3.5-5.0) mmol/L Chloride (101-111) mmol/L Carbon Dioxide (22-32) mmol/L Anion Gap (2-11) mmol/L BUN (6-24) mg/dL Creatinine (0.51-0.95) mg/dL Est GFR ( Amer) (>60) Est GFR (Non-Af Amer) (>60) BUN/Creatinine Ratio (8-20) Glucose (70-100) mg/dL Lactic Acid (0.5-2.0) mmol/L Calcium (8.6-10.3) mg/dL Magnesium (1.9-2.7) mg/dL Total Bilirubin (0.2-1.0) mg/dL AST (13-39) U/L ALT (7-52) U/L Alkaline Phosphatase (34-104) U/L Total Protein (6.4-8.9) g/dL Albumin (3.2-5.2) g/dL Globulin (2-4) g/dL Albumin/Globulin Ratio (1-3) TSH (0.34-5.60) mcIU/mL Assess/Plan/Problems-Billing Assessment: Back pain, non-displaced fx of posterior superior iliac spine in an 86 yo F with hx of HTN, chronic back pain, asthma, recent cellulitis from cat scratch/ bite - Patient Problems (1) Back pain Comment: 2/ fall, fx of R PSIS. Will use a lower dose of Ultram. suspect it may be sedating for the pt (2) Cellulitis Comment: Secondary to cat bite/scratch. Healing well. Continue Augmentin through 06/07. Will need outpatient f/u for rabies shots. (3) History of asthma Comment: Wean off O2. Albuterol prn (4) Hypertension Comment: Continue home Lisinopril and Propranolol controlled (5) Low TSH level Comment: minimallly decreased TSH, to be repeated in 4 -6 weeks (6) DVT prophylaxis Comment: lovenox Status and Disposition: will need STR. Medically stable for discharge
[2016-06-06] MEDS ORDERED: traMADol TAB* 50 MG PO PRN (14:19)
[2016-06-06] MEDS: Enoxaparin(*) 40 MG/0.4 ML SYR SUBCUT SCH (20:29)
[2016-06-07] MEDS: Propranolol TAB* 20 MG PO SCH ×2 (11:07→22:23)
[2016-06-07] MEDS: PARoxetine HCL TAB* 20 MG PO SCH (11:07)
[2016-06-07] MEDS: Lisinopril TAB* 5 MG PO SCH (11:07)
[2016-06-07] MEDS: Amoxicillin/Clavulanate TAB* 875 MG PO SCH ×2 (11:08→22:22)
--- NOTE | 2016-06-07 16:12 | PN ---
Subjective Date of Service: 06/07/16 Interval History: Pt c/o pain in the R buttock Family History: Unchanged from Admission Social History: Unchanged from Admission Past Medical History: Unchanged from Admission Objective Active Medications: Acetaminophen (Tylenol Tab*) 650 mg PO Q4H PRN PRN Reason: FEVER/PAIN Last Admin: 06/04/16 20:17 Dose: 650 mg Albuterol (Ventolin Hfa Inhaler*) 2 puff INH Q4H PRN PRN Reason: SHORTNESS OF BREATH Last Admin: 06/06/16 08:16 Dose: 2 puff Amoxicillin/Clavulanate Potassium (Augmentin Tab*) 875 mg PO BID [facility] Last Admin: 06/07/16 11:08 Dose: 875 mg Cetirizine HCl (Zyrtec*) 10 mg PO DAILY PRN PRN Reason: Allergy Symptoms Docusate Sodium (Colace Cap*) 100 mg PO DAILY PRN PRN Reason: CONSTIPATION Enoxaparin Sodium (Lovenox(*)) 40 mg SUBCUT Q24H [facility] Last Admin: 06/06/16 20:29 Dose: 40 mg Lisinopril (Prinivil Tab*) 2.5 mg PO DAILY [facility] Last Admin: 06/07/16 11:07 Dose: 2.5 mg Paroxetine HCl (Paxil Tab*) 20 mg PO DAILY [facility] Last Admin: 06/07/16 11:07 Dose: 20 mg Propranolol HCl (Inderal Tab*) 20 mg PO BID [facility] Last Admin: 06/07/16 11:07 Dose: 20 mg Tramadol HCl (Ultram*) 25 mg PO Q4H PRN PRN Reason: PAIN Vital Signs 06/06/16 06/06/16 06/06/16 19:34 20:00 23:27 Temperature 98.4 F 97.7 F Pulse Rate 68 65 Respiratory 18 16 16 Rate Blood Pressure 111/45 123/48 (mmHg) O2 Sat by Pulse 93 100 Oximetry 06/07/16 06/07/16 06/07/16 07:15 08:00 15:58 Temperature 97.7 F Pulse Rate 62 60 Respiratory 16 18 16 Rate Blood Pressure 136/52 113/50 (mmHg) O2 Sat by Pulse 98 97 Oximetry Oxygen Devices in Use Now: Nasal Cannula - 2L Appearance: 86 yo f in NAd, aAOx2 Eyes: No Scleral Icterus, PERRLA Ears/Nose/Mouth/Throat: NL Teeth, Lips, Gums, Mucous Membranes Moist Neck: NL Appearance and Movements; NL JVP, Trachea Midline Respiratory: Symmetrical Chest Expansion and Respiratory Effort, - - crackles at b/l bases Cardiovascular: RRR, - - 2/ 6SEM Abdominal: NL Sounds; No Tenderness; No Distention, No Hepatosplenomegaly Lymphatic: No Cervical Adenopathy Extremities: No Edema, No Clubbing, Cyanosis Skin: No Nodules or Sclerosis, - - stage 1 decubitus on sacrum Neurological: NL Muscle Strength and Tone Result Diagrams: 06/05/16 05:08 06/04/16 15:45 Additional Lab and Data: Lab Results 06/04/16 06/04/16 06/04/16 Range/Units 15:45 15:45 15:45 WBC 16.6 H (3.5-10.8) 10^3/ul RBC 3.80 L (4.0-5.4) 10^6/ul Hgb 11.3 L (12.0-16.0) g/dl Hct 34 L (35-47) % MCV 89 (80-97) fL MCH 30 (27-31) pg MCHC 34 (31-36) g/dl RDW 13 (10.5-15) % Plt Count 418 (150-450) 10^3/ul MPV 7 L (7.4-10.4) um3 Neut % (Auto) 87.9 H (38-83) % Lymph % (Auto) 7.1 L (25-47) % [place] % (Auto) 3.9 (1-9) % Eos % (Auto) 0.5 (0-6) % Baso % (Auto) 0.6 (0-2) % Absolute Neuts (auto) 14.5 H (1.5-7.7) 10^3/ul Absolute Lymphs (auto) 1.2 (1.0-4.8) 10^3/ul Absolute Monos (auto) 0.6 (0-0.8) 10^3/ul Absolute Eos (auto) 0.1 (0-0.6) 10^3/ul Absolute Basos (auto) 0.1 (0-0.2) 10^3/ul Absolute Nucleated RBC 0.01 10^3/ul Nucleated RBC % 0.1 Sodium 136 (133-145) mmol/L Potassium 3.9 (3.5-5.0) mmol/L Chloride 100 L (101-111) mmol/L Carbon Dioxide 30 (22-32) mmol/L Anion Gap 6 (2-11) mmol/L BUN 13 (6-24) mg/dL Creatinine 0.83 (0.51-0.95) mg/dL Est GFR ( Amer) 83.8 (>60) Est GFR (Non-Af Amer) 65.2 (>60) BUN/Creatinine Ratio 15.7 (8-20) Glucose 114 H (70-100) mg/dL Lactic Acid 1.0 (0.5-2.0) mmol/L Calcium 10.1 (8.6-10.3) mg/dL Magnesium 2.0 (1.9-2.7) mg/dL Total Bilirubin 0.40 (0.2-1.0) mg/dL AST 21 (13-39) U/L ALT 17 (7-52) U/L Alkaline Phosphatase 67 (34-104) U/L Total Protein 7.8 (6.4-8.9) g/dL Albumin 4.3 (3.2-5.2) g/dL Globulin 3.5 (2-4) g/dL Albumin/Globulin Ratio 1.2 (1-3) TSH 0.31 L (0.34-5.60) mcIU/mL 06/05/16 Range/Units 05:08 WBC 14.8 H (3.5-10.8) 10^3/ul RBC 3.53 L (4.0-5.4) 10^6/ul Hgb 10.5 L (12.0-16.0) g/dl Hct 31 L (35-47) % MCV 88 (80-97) fL MCH 30 (27-31) pg MCHC 34 (31-36) g/dl RDW 14 (10.5-15) % Plt Count 383 (150-450) 10^3/ul MPV 7 L (7.4-10.4) um3 Neut % (Auto) 68.9 (38-83) % Lymph % (Auto) 21.0 L (25-47) % [place] % (Auto) 6.4 (1-9) % Eos % (Auto) 2.6 (0-6) % Baso % (Auto) 1.1 (0-2) % Absolute Neuts (auto) 10.2 H (1.5-7.7) 10^3/ul Absolute Lymphs (auto) 3.1 (1.0-4.8) 10^3/ul Absolute Monos (auto) 1.0 H (0-0.8) 10^3/ul Absolute Eos (auto) 0.4 (0-0.6) 10^3/ul Absolute Basos (auto) 0.2 (0-0.2) 10^3/ul Absolute Nucleated RBC 0 10^3/ul Nucleated RBC % 0 Sodium (133-145) mmol/L Potassium (3.5-5.0) mmol/L Chloride (101-111) mmol/L Carbon Dioxide (22-32) mmol/L Anion Gap (2-11) mmol/L BUN (6-24) mg/dL Creatinine (0.51-0.95) mg/dL Est GFR ( Amer) (>60) Est GFR (Non-Af Amer) (>60) BUN/Creatinine Ratio (8-20) Glucose (70-100) mg/dL Lactic Acid (0.5-2.0) mmol/L Calcium (8.6-10.3) mg/dL Magnesium (1.9-2.7) mg/dL Total Bilirubin (0.2-1.0) mg/dL AST (13-39) U/L ALT (7-52) U/L Alkaline Phosphatase (34-104) U/L Total Protein (6.4-8.9) g/dL Albumin (3.2-5.2) g/dL Globulin (2-4) g/dL Albumin/Globulin Ratio (1-3) TSH (0.34-5.60) mcIU/mL Assess/Plan/Problems-Billing Assessment: Back pain, non-displaced fx of posterior superior iliac spine in an 86 yo F with hx of HTN, chronic back pain, asthma, recent cellulitis from cat scratch/ bite - Patient Problems (1) Back pain Comment: 2/2 fall, fx of R PSIS. more alert and awake on lower dose of Ultram. Awaiting STR (2) Cellulitis Comment: Secondary to cat bite/scratch. Healing well. Continue Augmentin last day today Will need outpatient f/u for rabies shots. (3) History of asthma Comment: Wean off O2. Albuterol prn hypoxemia most likley due to atelectasis after the fall. suspect she can be weaned off 02 once more ambulatory (4) Hypertension Comment: Continue home Lisinopril and Propranolol controlled (5) Low TSH level Comment: minimallly decreased TSH, to be repeated in 4 -6 weeks (6) DVT prophylaxis Comment: lovenox Status and Disposition: Medically stable for discharge
[2016-06-07] MEDS: Enoxaparin(*) 40 MG/0.4 ML SYR SUBCUT SCH (22:22)
[2016-06-07] MEDS: Acetaminophen TAB* 325 MG PO PRN (22:23)
[2016-06-07] MEDS: Lactobacillus Acidophilu (GG)* 1 CAP CAP PO SCH (22:23)
[2016-06-08 08:13] VITALS: BP 130/60
[2016-06-08] MEDS: Propranolol TAB* 20 MG PO SCH (08:58)
[2016-06-08] MEDS: PARoxetine HCL TAB* 20 MG PO SCH (08:58)
[2016-06-08] MEDS: Lisinopril TAB* 5 MG PO SCH (08:58)
[2016-06-08] MEDS: Lactobacillus Acidophilu (GG)* 1 CAP CAP PO SCH (08:58)
[2016-06-08] MEDS ORDERED: Rabies Vaccine (RabAvert)* 2.5 UNITS VIAL IM ONE (09:58)
--- NOTE | 2016-06-08 10:47 | DS ---
DATE OF ADMISSION: 06/05/16 DATE OF DISCHARGE: 06/08/16 PRIMARY CARE PROVIDER: LANA Constantino DISCHARGE DIAGNOSES: 1. Status post fall at home with subsequent back pain. 2. Right posterior inferior iliac spine fracture, which was non-displaced. SECONDARY DIAGNOSES: 1. Asthma. 2. Hypertension. 3. Anxiety and depression. 4. History of chronic back pain secondary to osteoarthritis. MEDICATIONS AT DISCHARGE: Include 1. Acetaminophen 650 mg every 4 hours prn. 2. Albuterol ProAir two tabs every 4 hours prn. 3. Calcium carbonate two chewable tablets daily. 4. Colace 100 mg daily. 5. Lactobacillus one capsule bid. 6. Lisinopril 2.5 mg daily. 7. Loratadine 10 mg daily. 8. Paroxetine 20 mg daily. 9. Propranolol 20 mg bid. 10. Ultram 25 mg every 4 hours prn. Patient is being discharged on 2 liters of continuous oxygen. Patient is also being discharged right after she received day 14 of her post- exposure prophylaxis rabies vaccine. She's still due for day 28 of the post- exposure prophylaxis vaccine that should be administered to patient on 06/21/16. LABORATORY STUDIES PERFORMED DURING HOSPITAL STAY: 1. On 06/04/16 - sodium 136, potassium 3.9, chloride 100, carbon dioxide 30, BUN 13, creatinine 0.83, TSH 0.31. 2. On 06/05/16 - white blood cell count 14.8, hemoglobin 10.5, hematocrit 31, platelets 383. 3. Blood cultures obtained on 05/25/16 were negative to date. HOSPITALIZATION COURSE: Eusebia Umaña is an 86-year-old female who was originally admitted to our facility from 05/25/16 and discharged on 05/29/16 for right hand cellulitis after a cat bite. Patient was discharged back to home. Unfortunately, she did not do well at home and she fell on 06/04/16 and was readmitted to the hospital. At that point, she continued on treatment with Augmentin for the cat scratch cellulitis. She did not appear to have any acute ongoing infection. She was noted to have right posterior iliac spine fracture that was non-displaced. She had a significant amount of pain due to that, and deconditioning and ambulatory dysfunction also. She was treated on our medical floor. Physical therapy evaluated the patient and deemed the patient a good candidate for short-term rehabilitation. She was accepted to [facility] for rehabilitation. On the day of discharge, she already completed a two-week course of Augmentin for the cat scratch cellulitis. Also, on the day of discharge, she received her day 14 dose of post-exposure rabies prophylaxis. Please also note that the patient is being discharged on 2 liters of oxygen nasal cannula; that most likely is related to atelectasis and ambulatory dysfunction. I believe that the patient is going to decrease her oxygen need once she's more ambulatory. PHYSICAL EXAM AT TIME OF DISCHARGE: Blood pressure 130/60, heart rate of 58 and regular, respiratory rate 16, oxygen saturation 97% on 2 liters of oxygen nasal cannula, temperature 97.3. General - patient is a very pleasant, 86-year- old female who is in no acute distress. Patient is alert and oriented x3. Poor recall. HEENT - head atraumatic, normocephalic. Eyes - pupils equal and reactive to light and accommodation. Mucosa moist. Neck: Supple. No JVD. No bruit bilaterally. Cardiovascular: Regular rate and rhythm with 2/6 systolic ejection murmur on auscultation of the right upper sternal border. Respiratory: Crackles at bilateral bases, otherwise clear. Abdomen: Soft and nontender. Positive bowel sounds in all four quadrants. Extremities: There is no edema, +2 pulses bilaterally. There is no clubbing or cyanosis. Evaluation of the skin: Patient's area of cellulitis and wound on the right hand as healed. She has scant amount of eschar on the dorsum of the right hand. There is no cellulitis noted. Neuro Evaluation: Speech is clear. Cranial nerves II through XII are grossly intact. Motor strength is 5/5 bilaterally. Please note that this is a short summary of the patient's hospital stay. Please refer to further medical records for details. TIME SPENT: Approximately 35 minutes were spent on the patient's discharge. CC: Rupali Allred; LANA Constantino * [id number]/[facility] #: [id number] MTDD
== END 2016-06-08 12:30 | DRG 536 ==
LOC: ED 13:59 → MED 18:07 → OBSVTOIN 06-05 12:57
PROVIDERS: ADMIT Internal Medicine; ATTEND Internal Medicine
PROC: 8E0XXY8 Suture Removal from Upper Extremity (ICD-10-PCS; principal; 2016-06-04)
PROC: 3E0134Z Introduction of Serum, Toxoid and Vaccine into Subcutaneous Tissue, Percutaneous Approach (ICD-10-PCS; 2016-06-04)
DX: S32.301A Unspecified fracture of right ilium, initial encounter for closed fracture (principal); L89.151 Pressure ulcer of sacral region, stage 1; L03.113 Cellulitis of right upper limb; J98.11 Atelectasis; I10 Essential (primary) hypertension; Z96.642 Presence of left artificial hip joint; D72.829 Elevated white blood cell count, unspecified; R94.6 Abnormal results of thyroid function studies; W18.39XA Other fall on same level, initial encounter; F41.9 Anxiety disorder, unspecified; J45.30 Mild persistent asthma, uncomplicated; F32.9 Major depressive disorder, single episode, unspecified; G89.29 Other chronic pain; M47.9 Spondylosis, unspecified; Y92.009 Unspecified place in unspecified non-institutional (private) residence as the place of occurrence of the external cause; Z97.4 Presence of external hearing-aid; Z98.49 Cataract extraction status, unspecified eye; Z90.710 Acquired absence of both cervix and uterus; Z85.828 Personal history of other malignant neoplasm of skin; Z80.0 Family history of malignant neoplasm of digestive organs; Z82.49 Family history of ischemic heart disease and other diseases of the circulatory system; Z91.14 Patient's other noncompliance with medication regimen; Z23 Encounter for immunization
CPT/HCPCS: 36415; 70450; 72110; 72131; 80053; 83605; 83735; 84443; 85025; 90675; 93005; 94760; A9270-GY; G0378; J1650; J2270

== ENCOUNTER 2016-11-05 21:32 | Emergency (ER) | payer MEDICARE ==
[2016-11-05] MEDS ORDERED: Morphine INJ* 4 MG/ML 1 ML SYRINGE SUBCUT ONE (22:02)
[2016-11-05 22:41] VITALS: BP 125/60
--- NOTE | 2016-11-05 22:43 | ED ---
Yoselyn Edmondson Rebecca, scribed for Gaetano Abarca MD on 11/05/16 at 2159 . Back Pain - HPI Summary HPI Summary: Pt is an 86 y/o F BIBA who presents to ED c/o acute on chronic thoracic and lumbar back pain. Pain worsened 3 weeks ago and has been constant since onset. Pain is currently severe, ranked 10/10. Has been taking Tylenol, which does not improve sx. Sx aggravated by movement, alleviated by nothing. Reports she lives alone with her daughter visiting every other day to help take care of her. Uses a walker to ambulate. - History of Current Complaint Chief Complaint: EDBackInjuryPain Stated Complaint: BACK PAIN Time Seen by Provider: 11/05/16 21:54 Hx Obtained From: Patient Onset/Duration: Still Present, Worse Since - 3 weeks ago Onset/Duration: Still Present Timing: Constant Back Pain Location: Is Discrete @ - Thoracic and lumbar back Severity Currently: Severe Pain Intensity: 10 Pain Scale Used: 0-10 Numeric Aggravating Symptom(s): Movement Alleviating Symptom(s): Nothing Associated Signs And Symptoms: Positive: Negative - Allergies/Home Medications Allergies/Adverse Reactions: Allergies Allergy/AdvReac Type Severity Reaction Status Date / Time Sulfa Antibiotics Allergy Rash Verified 11/05/16 22:02 PMH/Surg Hx/FS Hx/Imm Hx Endocrine/Hematology History: Denies: Hx Anticoagulant Therapy, Hx Diabetes, Hx Thyroid Disease, Hx Unexplained Bleeding Cardiovascular History: Reports: Hx Hypertension Denies: Hx Pacemaker/ICD Respiratory History: Reports: Hx Asthma Denies: Hx Chronic Obstructive Pulmonary Disease (COPD) History: Denies: Hx Renal Disease Musculoskeletal History: Reports: Hx Arthritis, Other Musculoskeletal History - pelvic and hip fracture, arm fx Denies: Hx Rheumatoid Arthritis, Hx Osteoporosis Sensory History: Reports: Hx Contacts or Glasses, Hx Hearing Aid - BOTH, Hx Hearing Problem Opthamlomology History: Reports: Hx Contacts or Glasses Neurological History: Denies: Hx Dementia, Hx Seizures, Other Neuro Impairments/Disorders Psychiatric History: Reports: Hx Anxiety, Hx Depression Denies: Hx Panic Disorder, Hx Substance Abuse - Cancer History Cancer Type, 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 Lt HIP REPAIR - FX- 05/2014. CATARACT - Immunization History Date of Tetanus Vaccine: 05/22/12 Date of Influenza Vaccine: 05/24/12 Infectious Disease History: Denies: Hx Hepatitis, Hx Human Immunodeficiency Virus (HIV), Hx of Known/ Suspected MRSA, Traveled Outside the [place] in Last 30 Days - Family History Family History: Denies FHx of breast cancer. - Social History Lives: Alone Alcohol Use: None Hx Substance Use: No Substance Use Type: Reports: None Smoking Status (MU): Never Smoked Tobacco Review of Systems Negative: Fever Positive: Arthralgia - Thoracic and lumbar back pain All Other Systems Reviewed And Are Negative: Yes Physical Exam Triage Information Reviewed: Yes Vital Signs On Initial Exam: Initial Vitals Temp Pulse Resp BP Pulse Ox 99.8 F 78 16 113/76 90 11/05/16 21:49 11/05/16 21:49 11/05/16 21:49 11/05/16 21:49 11/05/16 21:49 Vital Signs Reviewed: Yes Appearance: Positive: Pain Distress - mild discomfort, Thin Skin: Positive: Warm Head/Face: Positive: Normal Head/Face Inspection Eyes: Positive: PAT ENT: Positive: Hearing grossly normal Neck: Positive: Supple Respiratory/Lung Sounds: Positive: Clear to Auscultation, Breath Sounds Present Cardiovascular: Positive: Normal Abdomen Description: Positive: Nontender, Soft Musculoskeletal: Positive: Other - mild diffuse mid back tenderness Neurological: Positive: Sensory/Motor Intact Psychiatric: Positive: Affect/Mood Appropriate Diagnostics - Vital Signs Vital Signs Temp Pulse Resp BP Pulse Ox 11/05/16 21:49 99.8 F 78 16 113/76 90 - Laboratory Lab Statement: Any lab studies that have been ordered have been reviewed, and results considered in the medical decision making process. - CT L-Spine CT CT Interpretation: No Acute Changes - There has been no appreciable change in the appearance of the L2, L3, L4 and L5 compression fractures. No new fracture is identified. Again noted is made of L3-4 and L4-5 posterior osteophytes indenting the canal. CT Interpretation Completed By: Radiologist T-Spine CT CT Interpretation: Positive (See Comments) - There is a slight loss of height of the superior endplate of T11. This very slight compression is of indeterminate age but was not present on the lumbar spine CT of June 04, 2016, which included the T11 vertebra. Correlate with any pain in this area to help determine if it is acute. There is no retropulsion and the posterior elements are intact. If it is indicated to determine if this fracture or recent , MRI would help, as recent fractures would exhibit bone edema. CT Interpretation Completed By: Radiologist Re-Evaluation - Re-Evaluation First Eval Re-Evaluation Time: 01:02 Change: Improved Comment: Pt is able to ambulate. Discussed CT results with the pt. Back Pain Course/Dx - Course Assessment/Plan: Pt is an 86 y/o F BIBA who presents to ED c/o acute on chronic thoracic and lumbar back pain which worsened 3 weeks ago. Pain is currently severe, ranked 10/10. Has been taking Tylenol, which does not improve sx. Sx aggravated by movement, alleviated by nothing. Reports she lives alone with her daughter visiting every other day to help take care of her. Uses a walker to ambulate. CT C-Spine reveals no acute findings. CT T-spine reveals "slight loss of height of the superior endplate of T11" with full findings detailed above. Pt will be D/C to home with Dx of back pain. She understands and agrees. Patient's medications reviewed this visit. - Diagnoses Provider Diagnoses: Back pain Discharge - Discharge Plan Condition: Stable Disposition: HOME Patient Education Materials: Back Pain (ED) Referrals: Lori Redding, [employer]CHNICIAN [Primary Care Provider] - 3 Days The documentation as recorded by the Yoselyn durán Rebecca accurately reflects the service I personally performed and the decisions made by me, Gaetano Abarca MD.
[2016-11-06] MEDS ORDERED: Ibuprofen TAB* 400 MG PO ONE ×2 (02:09→02:10)
--- NOTE | 2016-11-06 09:21 | RAD ---
Indication: Back pain. CT of the thoracic spine was obtained in the axial plane. Sagittal and coronal reconstructed images were obtained. Comparison is made with the previous exam dated June 04, 2016. There is mild compression of the superior endplate of T11. No fracture line is identified. This appears to be new since previous exam of June 04, 2016. No retropulsed fragment is noted. The pedicles appear otherwise intact. There is ventral osteophyte formation from T1 to T2 through T10-T11 osteophyte formation. The spinal canal appears to be intact. No dorsal osteophyte is noted. All the intervertebral foramen appear patent. The lung landers demonstrate no evidence of alveolar consolidation. The remainder of the vertebral bodies appear normal in height. IMPRESSION: MILD LESS THAN 25% COMPRESSION OF THE T11 VERTEBRA WHICH IS NEW SINCE JUNE 04, 2016. CORRELATION WITH CLINICAL HISTORY IS SUGGESTED. NO OTHER FRACTURES ARE NOTED. 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
--- NOTE | 2016-11-06 09:32 | RAD ---
Indication: Back pain, back injury. CT of the lumbar spine was obtained in the axial plane. Coronal and sagittal reconstructed images were obtained. Comparison is previous exam dated June 04, 2016. The L1 vertebra appears to be intact. No evidence of compression of L1 is noted. There is compression of the L2 vertebral body with superior and inferior plate compression. This appears to be similar to that seen prior exam and has not significantly changed. No fracture line is noted. At L3 there is superior compression noted. This is unchanged from previous examination. At L4 and L5 there is decrease in the vertebral bodies in height. This is also unchanged from previous exam. At L5-S1 there is broad-based protrusion noted. Moderate facet hypertrophy is noted. No significant foraminal or central stenosis is At L4-L5 spondylitic ridge flattens the thecal sac. Osteophyte and broad-based protrusion noted in the posterior lateral aspect of both disc spaces appear to narrow both intervertebral foramen. At L3-L4 spondylitic ridge with broad-based protrusion flattens the thecal sac. The intervertebral foramen appear patent. At L2-L3 no central foraminal stenosis is identified. At L1-L2 spondylitic ridge flattens the thecal sac. At T12-L1 disc space is normal. IMPRESSION: Compression fractures of L2, L3, L4 and L5 the degree of which does not appear to be significantly changed since previous exam. Multilevel degenerative disc disease is present.
== END 2016-11-06 01:30 | disposition home or self-care (01) ==
LOC: ED 21:32
DX: M54.5 Low back pain (principal)
CPT/HCPCS: 72128; 72131; 96374; 99283; A9270-GY; J2270

== ENCOUNTER 2017-01-04 18:07 | Inpatient (IN) | payer MEDICARE ==
[2017-01-04] MEDS ORDERED: Albuterol/Ipratropium NEB.SOL* Albuterol 2.5 MG/Ipratropium 0.5 MG 3 ML ONE (18:20)
[2017-01-04] MEDS ORDERED: Albuterol/Ipratropium NEB.SOL* Albuterol 2.5 MG/Ipratropium 0.5 MG 3 ML INH ONE (18:20)
[2017-01-04] MEDS ORDERED: methylPREDNISolone 125 MG* 2 ML VIAL IV ONE (18:20)
[2017-01-04 18:59] LABS: Hematocrit 31 % (35-47); Hemoglobin 10.5 g/dl (12.0-16.0); Mean Corpuscular HGB Conc 34 g/dl (31-36); Mean Corpuscular Hemoglobin 30 pg (27-31); Mean Corpuscular Volume 89 fL (80-97); Mean Platelet Volume 7 um3 (7.4-10.4); Red Blood Count 3.49 10^6/ul (4.0-5.4); Red Cell Distribution Width 13 % (10.5-15); White Blood Count 11.7 10^3/ul (3.5-10.8)
--- NOTE | 2017-01-04 19:15 | RAD ---
INDICATION: Short of breath July 27, 2015 COMPARISON: July 27, 2015 TECHNIQUE: An AP portable view obtained at 1843 hours is submitted. FINDINGS: Bones/Soft Tissues: There are no acute bony findings. Cardiomediastinal: The cardiomediastinal silhouette is normal. Lungs: There are no infiltrates. Pleura: There are no pleural effusions. Other: None IMPRESSION: NO ACTIVE DISEASE
[2017-01-04 19:19] LABS: Albumin 4.1 g/dL (3.2-5.2); BUN/Creatinine Ratio 19.8 (8-20); C Reactive Protein 4.92 mg/L (< 5.00); Calcium 9.8 mg/dL (8.6-10.3); EGFR Non-African American 44.3 (>60); Globulin 2.8 g/dL (2-4); Potassium 4.8 mmol/L (3.5-5.0); Total Bilirubin 0.3 mg/dL (0.2-1.0); Total Protein 6.9 g/dL (6.4-8.9)
[2017-01-04 19:31] LABS: Troponin I 0.04 ng/mL (<0.04)
[2017-01-04] MEDS ORDERED: Levofloxacin 750 MG IVPREMIX(* 750 MG/150 ML BAG IVPB ONE (21:18)
[2017-01-04] MEDS ORDERED: NS 0.9% 1000 ML* 1,000 ML IV ONE (21:18)
--- NOTE | 2017-01-04 22:23 | ED ---
Flora Edmondson Thomas, scribed for Mahendra Hazel MD on 01/04/17 at 1838 . Shortness of Breath - HPI Summary HPI Summary: The pt is an 86 y/o F BIBA c/o acute on chronic SOB that became much worse today at 17:00. Her SOB is constant and is present at rest. She has a Hx of asthma. [place] [facility] [place] her [place]B. She normally takes nebulizer treatments at home and she took one Duo-Neb at home. She has a cough. She denies fever, chills, and swelling. PMHx: asthma. PSHx: cholecystectomy. SHx: no smoking, no drinking, no illicit drug use. - History of Current Complaint Chief Complaint: EDShortnessOfBreath Time Seen by Provider: 01/04/17 18:12 Hx Obtained From: Patient Onset/Duration: Sudden Onset, Lasting Minutes - acute on chronic worsening at 17 :00, Still Present Timing: Constant Current Severity: Severe Dyspnea At: Rest Aggrevating Factors: Nothing Alleviating Factors: Nothing Associated Signs & Symptoms: Negative, Cough (Nonproductive) - Allergy/Home Medications Allergies/Adverse Reactions: Allergies Allergy/AdvReac Type Severity Reaction Status Date / Time Sulfa Antibiotics Allergy Rash Verified 01/04/17 18:13 Home Medications: Home Medications Albuterol 0.5% CONC NEB.LYNETTE* PRN 01/04/17 [History] Fluticasone-Salmeterol 500-50* [Advair Diskus 500-50*] 1 puff INH BID 01/04/17 [ History Confirmed 01/04/17] Paroxetine HCl [Paxil] 10 mg PO DAILY 01/04/17 [History Confirmed 01/04/17] Propranolol TAB* [Inderal TAB*] 10 mg PO DAILY 01/04/17 [History Confirmed 01/04] PMH/Surg Hx/FS Hx/Imm Hx Previously Healthy: No Endocrine/Hematology History: Denies: Hx Anticoagulant Therapy, Hx Diabetes, Hx Thyroid Disease, Hx Unexplained Bleeding Cardiovascular History: Reports: Hx Hypertension Denies: Hx Pacemaker/ICD Respiratory History: Reports: Hx Asthma Denies: Hx Chronic Obstructive Pulmonary Disease (COPD) History: Denies: Hx Renal Disease Musculoskeletal History: Reports: Hx Arthritis, Other Musculoskeletal History - pelvic and hip fracture, arm fx Denies: Hx Rheumatoid Arthritis, Hx Osteoporosis Sensory History: Reports: Hx Contacts or Glasses, Hx Hearing Aid - BOTH, Hx Hearing Problem Opthamlomology History: Reports: Hx Contacts or Glasses Neurological History: Denies: Hx Dementia, Hx Seizures, Other Neuro Impairments/Disorders Psychiatric History: Reports: Hx Anxiety, Hx Depression Denies: Hx Panic Disorder, Hx Substance Abuse - Cancer History Cancer Type, 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 Lt HIP REPAIR - FX- 02/2014. CATARACT. CHOLECYSTECTOMY - Immunization History Date of Tetanus Vaccine: 05/22/12 Date of Influenza Vaccine: 05/24/12 Infectious Disease History: No Infectious Disease History: Denies: Hx Hepatitis, Hx Human Immunodeficiency Virus (HIV), Hx of Known/ Suspected MRSA, Traveled Outside the in Last 30 Days - Family History Known Family History: Negative: Other - NEG: breast CA - Social History Alcohol Use: None Hx Substance Use: No Substance Use Type: Reports: None Smoking Status (MU): Never Smoked Tobacco Review of Systems Negative: Fever, Chills Positive: Shortness Of Breath - acute on chronic, Cough Negative: Edema All Other Systems Reviewed And Are Negative: Yes Physical Exam Triage Information Reviewed: Yes Vital Signs On Initial Exam: Initial Vitals Temp Pulse Resp BP Pulse Ox 97.6 F 107 16 138/66 99 01/04/17 18:13 01/04/17 18:13 01/04/17 18:13 01/04/17 18:13 01/04/17 18:13 Vital Signs Reviewed: Yes Appearance: Positive: Well-Appearing, No Pain Distress, Well-Nourished Skin: Positive: Warm, Skin Color Reflects Adequate Perfusion, Dry Head/Face: Positive: Normal Head/Face Inspection Eyes: Positive: Normal ENT: Positive: Normal ENT inspection, Other - No JVD Neck: Positive: Supple, Nontender Respiratory/Lung Sounds: Positive: Other - She has loud upper respiratory sounds obstructing her breath sounds. She is a little tachypnic. Bowel Sounds: Positive: Present Musculoskeletal: Positive: Normal, Interruption @. Negative: Edema Left, Edema Right Psychiatric: Positive: Normal, Affect/Mood Appropriate - [place] Coma Scale Coma Scale Total: 15 Diagnostics - Vital Signs Vital Signs Temp Pulse Resp BP Pulse Ox 01/04/17 18:26 22 97 01/04/17 18:24 81 24 97 01/04/17 18:20 70 96 01/04/17 18:17 142/73 01/04/17 18:15 97.6 F 107 26 138/66 99 01/04/17 18:13 97.6 F 107 16 138/66 99 - Laboratory Lab Results: Lab Results 01/04/17 01/04/17 01/04/17 Range/Units 18:48 18:48 18:48 WBC 11.7 H (3.5-10.8) 10^3/ul RBC 3.49 L (4.0-5.4) 10^6/ul Hgb 10.5 L (12.0-16.0) g/dl Hct 31 L (35-47) % MCV 89 (80-97) fL MCH 30 (27-31) pg MCHC 34 (31-36) g/dl RDW 13 (10.5-15) % Plt Count 380 (150-450) 10^3/ul MPV 7 L (7.4-10.4) um3 Neut % (Auto) 65.7 (38-83) % Lymph % (Auto) 17.1 L (25-47) % [place] % (Auto) 6.9 (1-9) % Eos % (Auto) 8.9 H (0-6) % Baso % (Auto) 1.4 (0-2) % Absolute Neuts (auto) 7.7 (1.5-7.7) 10^3/ul Absolute Lymphs (auto) 2.0 (1.0-4.8) 10^3/ul Absolute Monos (auto) 0.8 (0-0.8) 10^3/ul Absolute Eos (auto) 1.0 H (0-0.6) 10^3/ul Absolute Basos (auto) 0.2 (0-0.2) 10^3/ul Absolute Nucleated RBC 0 10^3/ul Nucleated RBC % 0 Sodium 137 (133-145) mmol/L Potassium 4.8 (3.5-5.0) mmol/L Chloride 101 (101-111) mmol/L Carbon Dioxide 32 (22-32) mmol/L Anion Gap 4 (2-11) mmol/L BUN 23 (6-24) mg/dL Creatinine 1.16 H (0.51-0.95) mg/dL Est GFR ( Amer) 57.0 (>60) Est GFR (Non-Af Amer) 44.3 (>60) BUN/Creatinine Ratio 19.8 (8-20) Glucose 100 (70-100) mg/dL Lactic Acid (0.5-2.0) mmol/L Calcium 9.8 (8.6-10.3) mg/dL Total Bilirubin 0.30 (0.2-1.0) mg/dL AST 13 (13-39) U/L ALT 7 (7-52) U/L Alkaline Phosphatase 49 (34-104) U/L Troponin I 0.04 H* (<0.04) ng/mL C-Reactive Protein 4.92 (< 5.00) mg/L B-Natriuretic Peptide 55 ( - 100) pg/mL Total Protein 6.9 (6.4-8.9) g/dL Albumin 4.1 (3.2-5.2) g/dL Globulin 2.8 (2-4) g/dL Albumin/Globulin Ratio 1.5 (1-3) 01/04/17 Range/Units 18:48 WBC (3.5-10.8) 10^3/ul RBC (4.0-5.4) 10^6/ul Hgb (12.0-16.0) g/dl Hct (35-47) % MCV (80-97) fL MCH (27-31) pg MCHC (31-36) g/dl RDW (10.5-15) % Plt Count (150-450) 10^3/ul MPV (7.4-10.4) um3 Neut % (Auto) (38-83) % Lymph % (Auto) (25-47) % [place] % (Auto) (1-9) % Eos % (Auto) (0-6) % Baso % (Auto) (0-2) % Absolute Neuts (auto) (1.5-7.7) 10^3/ul Absolute Lymphs (auto) (1.0-4.8) 10^3/ul Absolute Monos (auto) (0-0.8) 10^3/ul Absolute Eos (auto) (0-0.6) 10^3/ul Absolute Basos (auto) (0-0.2) 10^3/ul Absolute Nucleated RBC 10^3/ul Nucleated RBC % Sodium (133-145) mmol/L Potassium (3.5-5.0) mmol/L Chloride (101-111) mmol/L Carbon Dioxide (22-32) mmol/L Anion Gap (2-11) mmol/L BUN (6-24) mg/dL Creatinine (0.51-0.95) mg/dL Est GFR ( Amer) (>60) Est GFR (Non-Af Amer) (>60) BUN/Creatinine Ratio (8-20) Glucose (70-100) mg/dL Lactic Acid 0.6 (0.5-2.0) mmol/L Calcium (8.6-10.3) mg/dL Total Bilirubin (0.2-1.0) mg/dL AST (13-39) U/L ALT (7-52) U/L Alkaline Phosphatase (34-104) U/L Troponin I (<0.04) ng/mL C-Reactive Protein (< 5.00) mg/L B-Natriuretic Peptide ( - 100) pg/mL Total Protein (6.4-8.9) g/dL Albumin (3.2-5.2) g/dL Globulin (2-4) g/dL Albumin/Globulin Ratio (1-3) Result Diagrams: 01/04/17 18:48 01/04/17 18:48 Lab Statement: Any lab studies that have been ordered have been reviewed, and results considered in the medical decision making process. - Radiology CXR Xray Interpretation: No Acute Changes - No active disease. ED physician has reviewed this report and agrees. Radiology Interpretation Completed By: Radiologist - EKG 18:46 Cardiac Rate: NL - 73 BPM EKG Interpretation: Sinus rhythm. Baseline wandering. Course/Dx - Course Course Of Treatment: Ms. Umaña presented with a COPD exacerbaton and bronchitis. She was treated with nebs and steroids and antibiotics. - Diagnoses Provider Diagnoses: COPD exacerbation, Bronchitis - Physician Notifications Discussed Care of Patient With: Hernesto Winter Time Discussed With Above Provider: 21:20 Instructed by Provider To: Other - I consulted with Dr. Winter, process design chemical engineer , who [place] [facility] [place] - Discharge Plan Condition: Fair Disposition: ADMITTED TO [facility] Discharge Disposition Comment: By Moy Referrals: Lori Redding, EXTRUSION PROCESS OPERATOR [Primary Care Provider] - The documentation as recorded by the Flora durán Thomas accurately reflects the service I personally performed and the decisions made by me, Mahendra Hazel MD.
--- NOTE | 2017-01-04 23:54 | HP ---
H&P (Free Text) History and Physical: PCP: Augustin Miranda MD Date/Time: 01/04/2017 193 CC: cough/SOB HPI: Mrs Umaña is an 86YO female HX asthma presenting with SOB & cough productive of whitish phlegm gradually worsening over the past 1-2 weeks corresponding to running out of her fluticasone/salmeterol 500/50 10 days ago as she could no longer afford it. She reports subjective fevers and wheeae, but no chills, sweats, sweats, palpitations, light-headedness, changes in bowel/ bladder, or other issues. She has had some chest soreness only with coughing. PMedHx asthma, mild persistent HTN anxiety depression OA spine Ambulatory Orders Calcium Carbonate-Cholecalcife [Caltrate 600+D] 2 chw PO DAILY 12/24/14 Albuterol inh POWDER (NF) [Proair Respiclick] 2 puff INH Q4HR PRN 05/25/16 Acetaminophen TAB* [Tylenol TAB*] 650 mg PO Q4H PRN #0 tab 06/08/16 Albuterol 0.5% CONC NEB.LYNETTE* PRN 01/04/17 Fluticasone-Salmeterol 500-50* [Advair Diskus 500-50*] 1 puff INH BID 01/04/17 Paroxetine HCl [Paxil] 10 mg PO DAILY 01/04/17 Propranolol TAB* [Inderal TAB*] 10 mg PO DAILY 01/04/17 Allergies Sulfa Antibiotics Allergy (Verified 01/04/17 18:13) Rash PSurgHx cataract extraction hysterectomy L JUAN LUIS SocHx: denies tobacco, alcohol, & recreational drugs; lives alone; retired from [employer]. FamHx: positive for CAD, stomach CA ROS: as above, otherwise reviewed and all were negative vitals: Vital Signs Temp 37.1 C 01/05/17 00:59 Pulse 75 01/05/17 01:38 Resp 23 01/05/17 01:38 BP 131/63 01/05/17 00:01 Pulse Ox 93 01/05/17 01:38 Intake & Output 01/04/17 01/04/17 01/05/17 11:59 23:59 11:59 Intake Total 1056 Balance 1056 Weight 55.338 kg Intake: IV Fluids 1056 Constitutional: NAD, normally developed, well-nourished elderly white female HEENM: atraumatic; sclera/conjunctiva: non-icteric/clear; hearing: clinically intact; oropharynx: clear, mucosa moist Neck: soft tissue: non-tender; thyroid: normal Pulmonary: R>L with coarse rhochi & wheeze, prominent wet cough, fair aeration, no accessory muscle use CV: RR/RR, normal S1S2, no carotid bruit, no jugular venous distention, 2+ B DP/ PT, no edema Abdominal: soft, non-distended, non-tender, no rebound/guarding/rigidity, normoactive bowel sounds, no hepatosplenomegaly or masses, no costovertebral angle tenderness Musculoskeletal: general: grossly intact, no palpable tenderness Integumental: normal appearance and texture of exposed skin Psychiatric orientation: AA&O to PPS affect: calm mood: cooperative eye contact: fair content: reliable responses: timely insight: fair Testing: Lab Results 01/04/17 01/04/17 01/04/17 Range/Units 18:48 18:48 18:48 WBC 11.7 H (3.5-10.8) 10^3/ul RBC 3.49 L (4.0-5.4) 10^6/ul Hgb 10.5 L (12.0-16.0) g/dl Hct 31 L (35-47) % MCV 89 (80-97) fL MCH 30 (27-31) pg MCHC 34 (31-36) g/dl RDW 13 (10.5-15) % Plt Count 380 (150-450) 10^3/ul MPV 7 L (7.4-10.4) um3 Neut % (Auto) 65.7 (38-83) % Lymph % (Auto) 17.1 L (25-47) % [place] % (Auto) 6.9 (1-9) % Eos % (Auto) 8.9 H (0-6) % Baso % (Auto) 1.4 (0-2) % Absolute Neuts (auto) 7.7 (1.5-7.7) 10^3/ul Absolute Lymphs (auto) 2.0 (1.0-4.8) 10^3/ul Absolute Monos (auto) 0.8 (0-0.8) 10^3/ul Absolute Eos (auto) 1.0 H (0-0.6) 10^3/ul Absolute Basos (auto) 0.2 (0-0.2) 10^3/ul Absolute Nucleated RBC 0 10^3/ul Nucleated RBC % 0 Sodium 137 (133-145) mmol/L Potassium 4.8 (3.5-5.0) mmol/L Chloride 101 (101-111) mmol/L Carbon Dioxide 32 (22-32) mmol/L Anion Gap 4 (2-11) mmol/L BUN 23 (6-24) mg/dL Creatinine 1.16 H (0.51-0.95) mg/dL Est GFR ( Amer) 57.0 (>60) Est GFR (Non-Af Amer) 44.3 (>60) BUN/Creatinine Ratio 19.8 (8-20) Glucose 100 (70-100) mg/dL Lactic Acid (0.5-2.0) mmol/L Calcium 9.8 (8.6-10.3) mg/dL Total Bilirubin 0.30 (0.2-1.0) mg/dL AST 13 (13-39) U/L ALT 7 (7-52) U/L Alkaline Phosphatase 49 (34-104) U/L Troponin I 0.04 H* (<0.04) ng/mL C-Reactive Protein 4.92 (< 5.00) mg/L B-Natriuretic Peptide 55 ( - 100) pg/mL Total Protein 6.9 (6.4-8.9) g/dL Albumin 4.1 (3.2-5.2) g/dL Globulin 2.8 (2-4) g/dL Albumin/Globulin Ratio 1.5 (1-3) 01/04/17 01/05/17 Range/Units 18:48 00:30 WBC (3.5-10.8) 10^3/ul RBC (4.0-5.4) 10^6/ul Hgb (12.0-16.0) g/dl Hct (35-47) % MCV (80-97) fL MCH (27-31) pg MCHC (31-36) g/dl RDW (10.5-15) % Plt Count (150-450) 10^3/ul MPV (7.4-10.4) um3 Neut % (Auto) (38-83) % Lymph % (Auto) (25-47) % [place] % (Auto) (1-9) % Eos % (Auto) (0-6) % Baso % (Auto) (0-2) % Absolute Neuts (auto) (1.5-7.7) 10^3/ul Absolute Lymphs (auto) (1.0-4.8) 10^3/ul Absolute Monos (auto) (0-0.8) 10^3/ul Absolute Eos (auto) (0-0.6) 10^3/ul Absolute Basos (auto) (0-0.2) 10^3/ul Absolute Nucleated RBC 10^3/ul Nucleated RBC % Sodium (133-145) mmol/L Potassium (3.5-5.0) mmol/L Chloride (101-111) mmol/L Carbon Dioxide (22-32) mmol/L Anion Gap (2-11) mmol/L BUN (6-24) mg/dL Creatinine (0.51-0.95) mg/dL Est GFR ( Amer) (>60) Est GFR (Non-Af Amer) (>60) BUN/Creatinine Ratio (8-20) Glucose (70-100) mg/dL Lactic Acid 0.6 (0.5-2.0) mmol/L Calcium (8.6-10.3) mg/dL Total Bilirubin (0.2-1.0) mg/dL AST (13-39) U/L ALT (7-52) U/L Alkaline Phosphatase (34-104) U/L Troponin I 0.13 H* (<0.04) ng/mL C-Reactive Protein (< 5.00) mg/L B-Natriuretic Peptide ( - 100) pg/mL Total Protein (6.4-8.9) g/dL Albumin (3.2-5.2) g/dL Globulin (2-4) g/dL Albumin/Globulin Ratio (1-3) ECG, personally reviewed: NSR rate 73, no ischemia CXR, personally reviewed: IMPRESSION: NO ACTIVE DISEASE Impression: 86F presenting with an asthma exacerbation and bronchitis DIAGNOSIS & PLAN Primary asthma exacerbation w/ bronchitis/concern for pneumonia : albuterol : mometasone/formoterol : tiotropium : IV methyprednisolone : supplemental oxygen : IVFs : guaifenesin : IV levofloxacin, renal dosing : supportive care elevated troponin : suspect demand ischemia : telemetry, trend Secondary HTN : hold propranolol given degree of current bronchospasm : monitor anxiety : continue paroxetine depression : continue paroxetine Admission Rational: inpatient for significant asthma exacerbation and concern for occult pneumonia; given the degree of her bronchospasm and SOB outpatient setting would be highly inappropriate DVTp: heparin SQ Code Status: full HCP: daughter, Dania Umaña
[2017-01-05] MEDS ORDERED: Albuterol 2.5 MG/3 ML NEB.SOL* (0.083%) INH PRN (00:03)
[2017-01-05] MEDS ORDERED: Acetaminophen TAB* 325 MG PO PRN (00:03)
[2017-01-05] MEDS ORDERED: Ondansetron INJ* 2 MG/ML VIAL IV PRN (00:05)
[2017-01-05] MEDS ORDERED: CMCS: Melatonin (NF) 3 MG TAB PO PRN (00:05)
[2017-01-05] MEDS: NS 0.9% 1000 ML* 1,000 ML IV SCH ×2 (01:20→21:56)
[2017-01-05] MEDS: Albuterol 2.5 MG/3 ML NEB.SOL* (0.083%) INH SCH ×3 (01:37→13:58)
[2017-01-05 06:03] LABS: Hematocrit 31 % (35-47); Hemoglobin 10.7 g/dl (12.0-16.0); Mean Corpuscular HGB Conc 35 g/dl (31-36); Mean Corpuscular Hemoglobin 31 pg (27-31); Mean Corpuscular Volume 88 fL (80-97); Mean Platelet Volume 8 um3 (7.4-10.4); Red Blood Count 3.49 10^6/ul (4.0-5.4); Red Cell Distribution Width 13 % (10.5-15)
[2017-01-05] MEDS: Omeprazole CAP* 20 MG PO SCH (06:27)
[2017-01-05 06:29] LABS: BUN/Creatinine Ratio 20.8 (8-20); Calcium 9.6 mg/dL (8.6-10.3); EGFR African American 66.8 (>60); Potassium 4.1 mmol/L (3.5-5.0)
[2017-01-05 07:28] LABS: Troponin I 0.09 ng/mL (<0.04)
[2017-01-05] MEDS: Mometasone/Formoter 200/5 MDI INH SCH ×2 (08:24→19:34)
[2017-01-05] MEDS: Tiotropium CAP.INH* CAP.INH/18 MCG (USE ORDER SET !) INH SCH (08:25)
[2017-01-05] MEDS: guaiFENesin ER TAB 600 MG PO SCH ×2 (08:41→21:15)
[2017-01-05] MEDS: PARoxetine HCL TAB* 10 MG PO SCH (08:41)
[2017-01-05] MEDS ORDERED: Spiriva Inhaler DEVICE* 1 EACH DEVICE INH ONE (09:00)
[2017-01-05] MEDS ORDERED: Docusate CAP* 100 MG PO SCH (09:00)
[2017-01-05] MEDS: guaiFENesin LIQ* 100 MG/5 ML UDC PO SCH ×2 (13:33→16:22)
[2017-01-05] MEDS ORDERED: Albuterol/Ipratropium NEB.SOL* Albuterol 2.5 MG/Ipratropium 0.5 MG 3 ML INH PRN (13:56)
[2017-01-05] MEDS ORDERED: guaiFENesin LIQ* 100 MG/5 ML UDC PO PRN (16:22)
--- NOTE | 2017-01-05 17:47 | PN ---
Subjective Date of Service: 01/05/17 Interval History: Cough with light/white sputum. Less SOB today, at or near her baseline but cough is very bothersome. Objective Active Medications: Acetaminophen (Tylenol Tab*) 650 mg PO Q6H PRN PRN Reason: FEVER/PAIN Albuterol/Ipratropium (Duoneb (Albuterol 2.5 Mg/Ipratropium 0.5 Mg)) 1 neb INH Q4H PRN PRN Reason: SOB/WHEEZING Docusate Sodium (Colace Cap*) 200 mg PO BID [facility] Last Admin: 01/05/17 08:40 Dose: 200 mg Guaifenesin (Mucinex*) 1,200 mg PO BID [facility] Last Admin: 01/05/17 08:41 Dose: 1,200 mg Guaifenesin (Robitussin*) 10 ml PO QID PRN PRN Reason: COUGH Sodium Chloride (Ns 0.9% 1000 Ml*) 1,000 mls @ 50 mls/hr IV PER RATE [facility] Last Admin: 01/05/17 01:20 Dose: 50 mls/hr Ceftriaxone Sodium 1,000 mg/ (Sodium Chloride) 50 mls @ 200 mls/hr IVPB Q24H [facility] Methylprednisolone Sodium Succinate (Solu-Medrol 40 Mg) 60 mg IV ONCE ONE Stop: 01/05/17 18:01 Mometasone Furoate/Formoterol Fumar (Dulera 200/5 Mdi*) 2 puff INH BID [facility] Last Admin: 01/05/17 08:24 Dose: 2 puff Omeprazole (Prilosec Cap*) 20 mg PO DAILY@0600 [facility] Last Admin: 01/05/17 06:27 Dose: 20 mg Ondansetron HCl (Zofran Inj*) 4 mg IV Q6H PRN PRN Reason: NAUSEA Paroxetine HCl (Paxil Tab*) 10 mg PO DAILY [facility] Last Admin: 01/05/17 08:41 Dose: 10 mg Prednisone (Deltasone Tab*) 60 mg PO DAILY [facility] Tiotropium [place] (Spiriva Cap.Inh*) 1 cap INH DAILY [facility] Last Admin: 01/05/17 08:25 Dose: 1 cap Vital Signs 01/05/17 01/05/17 01/05/17 00:00 00:01 00:02 Temperature Pulse Rate 80 79 Respiratory 23 23 Rate Blood Pressure 131/63 (mmHg) O2 Sat by Pulse 93 93 Oximetry 01/05/17 01/05/17 01/05/17 00:25 00:59 01:38 Temperature 98 F 98.8 F Pulse Rate 75 75 Respiratory 23 23 Rate Blood Pressure 140/64 (mmHg) O2 Sat by Pulse 97 93 Oximetry 01/05/17 01/05/17 01/05/17 03:14 06:45 07:45 Temperature 98.3 F 97.8 F Pulse Rate 80 78 Respiratory 24 20 24 Rate Blood Pressure 106/48 127/61 (mmHg) O2 Sat by Pulse 97 96 Oximetry 01/05/17 01/05/17 01/05/17 08:25 08:26 11:27 Temperature 97.9 F Pulse Rate 79 84 Respiratory 20 24 Rate Blood Pressure 110/53 (mmHg) O2 Sat by Pulse 97 97 95 Oximetry 01/05/17 15:34 Temperature 98.0 F Pulse Rate 71 Respiratory 24 Rate Blood Pressure 125/49 (mmHg) O2 Sat by Pulse 99 Oximetry Oxygen Devices in Use Now: Nasal Cannula Appearance: Alert, sitting up in bed. Frequent cough, otherwise looks comfortable. Eyes: No Scleral Icterus Neck: NL Appearance and Movements; NL JVP, No Thyroid Enlargement, Masses Respiratory: Symmetrical Chest Expansion and Respiratory Effort, Clear to Percussion - Mild rhonchi and/or upper airway sounds. Cardiovascular: NL Sounds; No Murmurs; No JVD, RRR, No Edema, - Extremities: No Edema, No Clubbing, Cyanosis, - Skin: No Rash or Ulcers, No Nodules or Sclerosis Neurological: Alert and Oriented x 3, NL Sensation Result Diagrams: 01/05/17 04:42 01/05/17 04:42 Additional Lab and Data: Lab Results 01/04/17 01/04/17 01/04/17 Range/Units 18:48 18:48 18:48 WBC 11.7 H (3.5-10.8) 10^3/ul RBC 3.49 L (4.0-5.4) 10^6/ul Hgb 10.5 L (12.0-16.0) g/dl Hct 31 L (35-47) % MCV 89 (80-97) fL MCH 30 (27-31) pg MCHC 34 (31-36) g/dl RDW 13 (10.5-15) % Plt Count 380 (150-450) 10^3/ul MPV 7 L (7.4-10.4) um3 Neut % (Auto) 65.7 (38-83) % Lymph % (Auto) 17.1 L (25-47) % [place] % (Auto) 6.9 (1-9) % Eos % (Auto) 8.9 H (0-6) % Baso % (Auto) 1.4 (0-2) % Absolute Neuts (auto) 7.7 (1.5-7.7) 10^3/ul Absolute Lymphs (auto) 2.0 (1.0-4.8) 10^3/ul Absolute Monos (auto) 0.8 (0-0.8) 10^3/ul Absolute Eos (auto) 1.0 H (0-0.6) 10^3/ul Absolute Basos (auto) 0.2 (0-0.2) 10^3/ul Absolute Nucleated RBC 0 10^3/ul Nucleated RBC % 0 Sodium 137 (133-145) mmol/L Potassium 4.8 (3.5-5.0) mmol/L Chloride 101 (101-111) mmol/L Carbon Dioxide 32 (22-32) mmol/L Anion Gap 4 (2-11) mmol/L BUN 23 (6-24) mg/dL Creatinine 1.16 H (0.51-0.95) mg/dL Est GFR ( Amer) 57.0 (>60) Est GFR (Non-Af Amer) 44.3 (>60) BUN/Creatinine Ratio 19.8 (8-20) Glucose 100 (70-100) mg/dL Lactic Acid (0.5-2.0) mmol/L Calcium 9.8 (8.6-10.3) mg/dL Total Bilirubin 0.30 (0.2-1.0) mg/dL AST 13 (13-39) U/L ALT 7 (7-52) U/L Alkaline Phosphatase 49 (34-104) U/L Troponin I 0.04 H* (<0.04) ng/mL C-Reactive Protein 4.92 (< 5.00) mg/L B-Natriuretic Peptide 55 ( - 100) pg/mL Total Protein 6.9 (6.4-8.9) g/dL Albumin 4.1 (3.2-5.2) g/dL Globulin 2.8 (2-4) g/dL Albumin/Globulin Ratio 1.5 (1-3) 01/04/17 Range/Units 18:48 WBC (3.5-10.8) 10^3/ul RBC (4.0-5.4) 10^6/ul Hgb (12.0-16.0) g/dl Hct (35-47) % MCV (80-97) fL MCH (27-31) pg MCHC (31-36) g/dl RDW (10.5-15) % Plt Count (150-450) 10^3/ul MPV (7.4-10.4) um3 Neut % (Auto) (38-83) % Lymph % (Auto) (25-47) % [place] % (Auto) (1-9) % Eos % (Auto) (0-6) % Baso % (Auto) (0-2) % Absolute Neuts (auto) (1.5-7.7) 10^3/ul Absolute Lymphs (auto) (1.0-4.8) 10^3/ul Absolute Monos (auto) (0-0.8) 10^3/ul Absolute Eos (auto) (0-0.6) 10^3/ul Absolute Basos (auto) (0-0.2) 10^3/ul Absolute Nucleated RBC 10^3/ul Nucleated RBC % Sodium (133-145) mmol/L Potassium (3.5-5.0) mmol/L Chloride (101-111) mmol/L Carbon Dioxide (22-32) mmol/L Anion Gap (2-11) mmol/L BUN (6-24) mg/dL Creatinine (0.51-0.95) mg/dL Est GFR ( Amer) (>60) Est GFR (Non-Af Amer) (>60) BUN/Creatinine Ratio (8-20) Glucose (70-100) mg/dL Lactic Acid 0.6 (0.5-2.0) mmol/L Calcium (8.6-10.3) mg/dL Total Bilirubin (0.2-1.0) mg/dL AST (13-39) U/L ALT (7-52) U/L Alkaline Phosphatase (34-104) U/L Troponin I (<0.04) ng/mL C-Reactive Protein (< 5.00) mg/L B-Natriuretic Peptide ( - 100) pg/mL Total Protein (6.4-8.9) g/dL Albumin (3.2-5.2) g/dL Globulin (2-4) g/dL Albumin/Globulin Ratio (1-3) Microbiology and Other Data: Microbiology 01/05/17 14:51 Legionella Urinary Antigen - Final Urine Negative Legionella Streptococcus pneumoniae Ag Screen - Final Negative S. pneumo Antigen Assess/Plan/Problems-Billing Assessment: - Patient Problems (1) COPD exacerbation Current Visit: Yes Status: Acute Code(s): J44.1 - CHRONIC OBSTRUCTIVE PULMONARY DISEASE W (ACUTE) EXACERBATION SNOMED Code(s): 738912767 Comment: Had recent azithromycin. Will use ceftriaxone. Note WBC now wnl, afebrile. Continue steroids, guaifenesin, add benzonatate. (2) Hypertension Current Visit: No Status: Chronic Code(s): I10 - ESSENTIAL (PRIMARY) HYPERTENSION SNOMED Code(s): 28908481 Comment: Hold propranolol.
[2017-01-05] MEDS ORDERED: methylPREDNISolone SOD 40 MG* 1 ML VIAL IV ONE (18:00)
[2017-01-05] MEDS: cefTRIAXone VIAL(*) 1,000 MG in NS 0.9% 50 ML* 50 ML IVPB SCH (19:54)
[2017-01-05] MEDS: Benzonatate CAP* 100 MG PO SCH (21:16)
[2017-01-06] MEDS ORDERED: methylPREDNISolone SOD 40 MG* 1 ML VIAL IV SCH (02:30)
[2017-01-06] MEDS: Omeprazole CAP* 20 MG PO SCH (05:55)
[2017-01-06] MEDS: Benzonatate CAP* 100 MG PO SCH ×3 (08:24→20:17)
[2017-01-06] MEDS: PARoxetine HCL TAB* 10 MG PO SCH (08:24)
[2017-01-06] MEDS: guaiFENesin ER TAB 600 MG PO SCH ×2 (08:24→20:17)
[2017-01-06] MEDS: Mometasone/Formoter 200/5 MDI INH SCH ×2 (08:43→21:20)
[2017-01-06] MEDS: Tiotropium CAP.INH* CAP.INH/18 MCG (USE ORDER SET !) INH SCH (08:43)
[2017-01-06] MEDS ORDERED: predniSONE TAB* 10 MG PO SCH (09:00)
[2017-01-06] MEDS ORDERED: predniSONE TAB* 50 MG PO SCH (12:42)
--- NOTE | 2017-01-06 12:42 | PN ---
Subjective Date of Service: 01/06/17 Interval History: Feeks much better today. Less SOB, much less cough. No new c/o. Objective Active Medications: Acetaminophen (Tylenol Tab*) 650 mg PO Q6H PRN PRN Reason: FEVER/PAIN Albuterol/Ipratropium (Duoneb (Albuterol 2.5 Mg/Ipratropium 0.5 Mg)) 1 neb INH Q4H PRN PRN Reason: SOB/WHEEZING Benzonatate (Tessalon Cap*) 200 mg PO TID [facility] Last Admin: 01/06/17 08:24 Dose: 200 mg Guaifenesin (Mucinex*) 1,200 mg PO BID [facility] Last Admin: 01/06/17 08:24 Dose: 1,200 mg Guaifenesin (Robitussin*) 10 ml PO QID PRN PRN Reason: COUGH Ceftriaxone Sodium 1,000 mg/ (Sodium Chloride) 50 mls @ 200 mls/hr IVPB Q24H [facility] Last Admin: 01/05/17 19:54 Dose: 200 mls/hr Mometasone Furoate/Formoterol Fumar (Dulera 200/5 Mdi*) 2 puff INH BID [facility] Last Admin: 01/06/17 08:43 Dose: 2 puff Omeprazole (Prilosec Cap*) 20 mg PO DAILY@0600 [facility] Last Admin: 01/06/17 05:55 Dose: 20 mg Ondansetron HCl (Zofran Inj*) 4 mg IV Q6H PRN PRN Reason: NAUSEA Paroxetine HCl (Paxil Tab*) 10 mg PO DAILY [facility] Last Admin: 01/06/17 08:24 Dose: 10 mg Prednisone (Deltasone Tab*) 60 mg PO DAILY [facility] Last Admin: 01/06/17 08:24 Dose: 60 mg Tiotropium [place] (Spiriva Cap.Inh*) 1 cap INH DAILY [facility] Last Admin: 01/06/17 08:43 Dose: 1 cap Vital Signs 01/05/17 01/05/17 01/05/17 15:34 18:01 19:45 Temperature 98.0 F 98.1 F Pulse Rate 71 78 Respiratory 24 20 Rate Blood Pressure 125/49 130/48 (mmHg) O2 Sat by Pulse 99 99 95 Oximetry 01/05/17 01/05/17 01/06/17 20:00 23:58 00:00 Temperature 98.4 F Pulse Rate 75 64 Respiratory 18 20 Rate Blood Pressure 113/47 (mmHg) O2 Sat by Pulse 97 93 97 Oximetry 01/06/17 01/06/17 01/06/17 07:41 08:00 08:46 Temperature 98.2 F Pulse Rate 62 67 Respiratory 20 16 16 Rate Blood Pressure 121/47 (mmHg) O2 Sat by Pulse 96 94 Oximetry Oxygen Devices in Use Now: Nasal Cannula Appearance: Alert, sl up in bed. In good spirits. Looks comfortable. No cough during my visit. Eyes: No Scleral Icterus Neck: NL Appearance and Movements; NL JVP, No Thyroid Enlargement, Masses Respiratory: Symmetrical Chest Expansion and Respiratory Effort, Clear to Percussion, - - diminished BS BL. Cardiovascular: NL Sounds; No Murmurs; No JVD, RRR, No Edema, - Skin: No Rash or Ulcers, No Nodules or Sclerosis, - Neurological: Alert and Oriented x 3, NL Sensation Result Diagrams: 01/05/17 04:42 01/05/17 04:42 Additional Lab and Data: Lab Results 01/04/17 01/04/17 01/04/17 Range/Units 18:48 18:48 18:48 WBC 11.7 H (3.5-10.8) 10^3/ul RBC 3.49 L (4.0-5.4) 10^6/ul Hgb 10.5 L (12.0-16.0) g/dl Hct 31 L (35-47) % MCV 89 (80-97) fL MCH 30 (27-31) pg MCHC 34 (31-36) g/dl RDW 13 (10.5-15) % Plt Count 380 (150-450) 10^3/ul MPV 7 L (7.4-10.4) um3 Neut % (Auto) 65.7 (38-83) % Lymph % (Auto) 17.1 L (25-47) % Ransom % (Auto) 6.9 (1-9) % Eos % (Auto) 8.9 H (0-6) % Baso % (Auto) 1.4 (0-2) % Absolute Neuts (auto) 7.7 (1.5-7.7) 10^3/ul Absolute Lymphs (auto) 2.0 (1.0-4.8) 10^3/ul Absolute Monos (auto) 0.8 (0-0.8) 10^3/ul Absolute Eos (auto) 1.0 H (0-0.6) 10^3/ul Absolute Basos (auto) 0.2 (0-0.2) 10^3/ul Absolute Nucleated RBC 0 10^3/ul Nucleated RBC % 0 Sodium 137 (133-145) mmol/L Potassium 4.8 (3.5-5.0) mmol/L Chloride 101 (101-111) mmol/L Carbon Dioxide 32 (22-32) mmol/L Anion Gap 4 (2-11) mmol/L BUN 23 (6-24) mg/dL Creatinine 1.16 H (0.51-0.95) mg/dL Est GFR ( Amer) 57.0 (>60) Est GFR (Non-Af Amer) 44.3 (>60) BUN/Creatinine Ratio 19.8 (8-20) Glucose 100 (70-100) mg/dL Lactic Acid (0.5-2.0) mmol/L Calcium 9.8 (8.6-10.3) mg/dL Total Bilirubin 0.30 (0.2-1.0) mg/dL AST 13 (13-39) U/L ALT 7 (7-52) U/L Alkaline Phosphatase 49 (34-104) U/L Troponin I 0.04 H* (<0.04) ng/mL C-Reactive Protein 4.92 (< 5.00) mg/L B-Natriuretic Peptide 55 ( - 100) pg/mL Total Protein 6.9 (6.4-8.9) g/dL Albumin 4.1 (3.2-5.2) g/dL Globulin 2.8 (2-4) g/dL Albumin/Globulin Ratio 1.5 (1-3) 01/04/17 Range/Units 18:48 WBC (3.5-10.8) 10^3/ul RBC (4.0-5.4) 10^6/ul Hgb (12.0-16.0) g/dl Hct (35-47) % MCV (80-97) fL MCH (27-31) pg MCHC (31-36) g/dl RDW (10.5-15) % Plt Count (150-450) 10^3/ul MPV (7.4-10.4) um3 Neut % (Auto) (38-83) % Lymph % (Auto) (25-47) % Ransom % (Auto) (1-9) % Eos % (Auto) (0-6) % Baso % (Auto) (0-2) % Absolute Neuts (auto) (1.5-7.7) 10^3/ul Absolute Lymphs (auto) (1.0-4.8) 10^3/ul Absolute Monos (auto) (0-0.8) 10^3/ul Absolute Eos (auto) (0-0.6) 10^3/ul Absolute Basos (auto) (0-0.2) 10^3/ul Absolute Nucleated RBC 10^3/ul Nucleated RBC % Sodium (133-145) mmol/L Potassium (3.5-5.0) mmol/L Chloride (101-111) mmol/L Carbon Dioxide (22-32) mmol/L Anion Gap (2-11) mmol/L BUN (6-24) mg/dL Creatinine (0.51-0.95) mg/dL Est GFR ( Amer) (>60) Est GFR (Non-Af Amer) (>60) BUN/Creatinine Ratio (8-20) Glucose (70-100) mg/dL Lactic Acid 0.6 (0.5-2.0) mmol/L Calcium (8.6-10.3) mg/dL Total Bilirubin (0.2-1.0) mg/dL AST (13-39) U/L ALT (7-52) U/L Alkaline Phosphatase (34-104) U/L Troponin I (<0.04) ng/mL C-Reactive Protein (< 5.00) mg/L B-Natriuretic Peptide ( - 100) pg/mL Total Protein (6.4-8.9) g/dL Albumin (3.2-5.2) g/dL Globulin (2-4) g/dL Albumin/Globulin Ratio (1-3) Microbiology and Other Data: Microbiology 01/05/17 14:51 Legionella Urinary Antigen - Final Urine Negative Legionella Streptococcus pneumoniae Ag Screen - Final Negative S. pneumo Antigen Assess/Plan/Problems-Billing Assessment: - Patient Problems (1) COPD exacerbation Current Visit: Yes Status: Acute Code(s): J44.1 - CHRONIC OBSTRUCTIVE PULMONARY DISEASE W (ACUTE) EXACERBATION SNOMED Code(s): 573784076 Comment: Had recent azithromycin. Continue ceftriaxone. Note WBC now wnl, afebrile. Continue steroid taper, guaifenesin, benzonatate. (2) Hypertension Current Visit: No Status: Chronic Code(s): I10 - ESSENTIAL (PRIMARY) HYPERTENSION SNOMED Code(s): 85191489 Comment: Hold propranolol.
[2017-01-06] MEDS: cefTRIAXone VIAL(*) 1,000 MG in NS 0.9% 50 ML* 50 ML IVPB SCH (17:57)
[2017-01-06] MEDS ORDERED: Levofloxacin 750 MG IVPREMIX(* 750 MG/150 ML BAG IVPB SCH (21:00)
[2017-01-07] MEDS: Omeprazole CAP* 20 MG PO SCH (05:34)
[2017-01-07] MEDS: guaiFENesin ER TAB 600 MG PO SCH (07:26)
[2017-01-07] MEDS: PARoxetine HCL TAB* 10 MG PO SCH (07:27)
[2017-01-07] MEDS: Benzonatate CAP* 100 MG PO SCH (07:27)
[2017-01-07 07:33] VITALS: BP 139/59
--- NOTE | 2017-01-07 08:33 | PN ---
Progress Note - Progress Note Date of Service: 01/07/17 Note: Time spent on discharge 50 minutes.
[2017-01-07] MEDS ORDERED: CEFUROXIME 500 MG PO SCH (09:00)
[2017-01-07] MEDS ORDERED: ceFUROXime TAB(*) 250 MG PO SCH (09:00)
[2017-01-07] MEDS: Tiotropium CAP.INH* CAP.INH/18 MCG (USE ORDER SET !) INH SCH (09:17)
[2017-01-07] MEDS: Mometasone/Formoter 200/5 MDI INH SCH (09:18)
--- NOTE | 2017-01-07 17:32 | DS ---
CC: Lori Redding DISCHARGE SUMMARY: DATE OF ADMISSION: DATE OF DISCHARGE: 01/07/17 HOSPITAL COURSE: This 86-year-old woman presented with cough and shortness of breath. She had run out of her fluticasone/salmeterol about 10 days before as she could not afford the co-pay. She has gradually gotten worse during this period of time. She denied fevers. She did report feeling hot a nd wheezy at home, but no chills or sweats. The rest of the history is detailed in the admission no te. Chest x-ray showed no active disease. The patient was given IV methylprednisolone. Initially IV lev ofloxacin and then changed to IV ceftriaxone. She had gradual improvement and her cough was actuall y much better by the time of discharge. She was given benzonatate and guaifenesin long acting as we ll. At home, we stopped her propranolol, which I think should be avoided. I am going to have her use bu desonide twice a day and a nebulizer along with albuterol. Tiotropium was added as well. She will t jd home the mometasone and formoterol inhaler 2 puffs twice a day until she can get another flutica sone/salmeterol inhaler. She was given contact of the [employer] [facility] for help with her co-pay. She will get benzonatate and long-acting guaifenesin as well. She will be on a prednisone taper and cefuroxime for 5 more days. FINAL DIAGNOSES: 1. Chronic obstructive pulmonary disease exacerbation. 2. Hypertension. DISCHARGE MEDICATIONS: 1. Budesonide 0.5 mg by nebulizer b.i.d. 2. Cefuroxime 500 mg b.i.d. for 5 days. 3. Tiotropium 1 capsule daily. 4. Guaifenesin ER 1200 mg b.i.d. 5. Prednisone 10 mg five tablets on 01/08/17, four on 01/09/17, to be decreased by one daily. 6. Benzonatate 200 mg t.i.d. p.r.n. 7. Calcium with vitamin D 2 daily. 8. Albuterol inhaler 2 puffs every 4 hours p.r.n. 9. Acetaminophen 650 mg every 4 hours p.r.n. 10. Fluticasone/salmeterol 500/50 one puff b.i.d. 11. Paroxetine 10 mg daily. 12. Albuterol by nebulizer every 4 hours p.r.n. [id number]/[facility] #: [id number]
[2017-01-07] MEDS ORDERED: Budesonide NEB* 0.5 MG/2 ML NEB.SOLN INH SCH (19:00)
== END 2017-01-07 13:55 | disposition home health service (06) | DRG 191 ==
LOC: ED 18:07 → MEDTELE 23:54 → MED 01-06 14:35
PROVIDERS: ADMIT Hospitalist; ATTEND Internal Medicine
DX: J44.1 Chronic obstructive pulmonary disease with (acute) exacerbation (principal); J45.31 Mild persistent asthma with (acute) exacerbation; I10 Essential (primary) hypertension; H91.93 Unspecified hearing loss, bilateral; F41.9 Anxiety disorder, unspecified; F32.9 Major depressive disorder, single episode, unspecified; R40.2412 Glasgow coma scale score 13-15, at arrival to emergency department; R74.8 Abnormal levels of other serum enzymes; M47.9 Spondylosis, unspecified; Z82.49 Family history of ischemic heart disease and other diseases of the circulatory system; Z80.0 Family history of malignant neoplasm of digestive organs; Z90.49 Acquired absence of other specified parts of digestive tract; Z97.4 Presence of external hearing-aid; Z90.710 Acquired absence of both cervix and uterus; Z98.49 Cataract extraction status, unspecified eye; Z85.828 Personal history of other malignant neoplasm of skin
CPT/HCPCS: 36415; 71010; 80048; 80053; 83605; 83880; 84484; 85025; 86140; 87899; 93005; 94640; 94760; A9270-GY; J0696; J2920; J2930; J7512

== ENCOUNTER 2017-01-22 16:10 | Inpatient (IN) | payer MEDICARE ==
[2017-01-22] MEDS ORDERED: Aspirin Low Dose CHEW TAB* 81 MG PO ONE (18:34)
--- NOTE | 2017-01-22 18:57 | RAD ---
HISTORY: Chest pain COMPARISONS: January 04, 2017 VIEWS: 1: frontal portable view of the chest at 6:40 PM FINDINGS: LINES AND TUBES: None. CARDIOMEDIASTINAL SILHOUETTE: The cardiomediastinal silhouette is normal for portable technique. PLEURA: There is blunting of left costophrenic angle LUNG PARENCHYMA: There is confluent alveolar opacification of the left lower lung ABDOMEN: The upper abdomen is clear. There is no subphrenic gas. BONES AND SOFT TISSUES: No bone or soft tissue abnormalities are noted. IMPRESSION: LEFT LOWER LUNG CONSOLIDATION WITH SMALL LEFT PLEURAL EFFUSION. RECOMMEND FOLLOW-UP UNTIL RESOLUTION TO EXCLUDE UNDERLYING PULMONARY PARENCHYMAL PATHOLOGY.
[2017-01-22 19:09] LABS: Hematocrit 36 % (35-47); Hemoglobin 12.2 g/dl (12.0-16.0); Mean Corpuscular HGB Conc 34 g/dl (31-36); Mean Corpuscular Hemoglobin 29 pg (27-31); Mean Corpuscular Volume 87 fL (80-97); Mean Platelet Volume 7 um3 (7.4-10.4); Red Blood Count 4.15 10^6/ul (4.0-5.4); Red Cell Distribution Width 13 % (10.5-15); White Blood Count 10.1 10^3/ul (3.5-10.8)
[2017-01-22 19:27] LABS: Albumin 4.2 g/dL (3.2-5.2); BUN/Creatinine Ratio 15.7 (8-20); Calcium 10.1 mg/dL (8.6-10.3); EGFR African American 83.8 (>60); EGFR Non-African American 65.2 (>60); Globulin 3.4 g/dL (2-4); Potassium 4.4 mmol/L (3.5-5.0); Total Bilirubin 0.4 mg/dL (0.2-1.0); Total Protein 7.6 g/dL (6.4-8.9)
[2017-01-22] MEDS ORDERED: Cefepime(*) 2 GM in NS 0.9% 50 ML* 50 ML IVPB ONE (19:27)
[2017-01-22] MEDS ORDERED: Ciprofloxacin 400MG IVPREMIX(* 400 MG/200 ML BAG IVPB ONE (19:27)
[2017-01-22 19:29] LABS: Troponin I 0.01 ng/mL (<0.04)
[2017-01-22] MEDS ORDERED: Aspirin TAB* 325 MG PO ONE (19:37)
[2017-01-22] MEDS ORDERED: NS 0.9% 50 ML* 50 ML ONE (20:27)
[2017-01-22] MEDS ORDERED: cefTRIAXone(*) 1 GM in NS 0.9% 50 ML* 50 ML IVPB ONE (20:52)
[2017-01-22] MEDS ORDERED: Ondansetron INJ* 2 MG/ML VIAL IV PRN (20:55)
[2017-01-22] MEDS ORDERED: Albuterol inh POWDER (NF) 1 PUFF MDI INH PRN (21:15)
[2017-01-22 21:27] LABS: C Reactive Protein 17.51 mg/L (< 5.00)
[2017-01-22 22:05] LABS: Erythrocyte Sed Rate 88 mm/Hr (0-40)
[2017-01-22] MEDS: Benzonatate CAP* 100 MG PO SCH (22:13)
[2017-01-22] MEDS: Enoxaparin(*) 40 MG/0.4 ML SYR SUBCUT SCH (22:14)
[2017-01-22] MEDS: Acetaminophen TAB* 325 MG PO PRN (22:18)
[2017-01-23] MEDS ORDERED: Albuterol HFA INHALER* 8 gm MDI INH PRN (04:35)
--- NOTE | 2017-01-23 04:54 | HP ---
CC: Dr. Miranda * HISTORY AND PHYSICAL: DATE OF ADMISSION: 01/22/17 PRIMARY CARE PROVIDER: Dr. Miranda HEALTHCARE PROXY: Patient fails to identify healthcare proxy. CODE STATUS: Full. CHIEF COMPLAINT: Back pain, cough. HISTORY OF PRESENT ILLNESS: This is an 86-year-old female recently admitted to [facility] from 01/04/17 to 01/07/17 presenting with shortness of breath and cough, was treated for COPD exacerbation in the setting of not taking home medications after being unable to afford co-pay. The patient was treated for COPD exacerbation during the course of that hospital stay with steroids, discharged on 5- day cefuroxime as well as prednisone taper as well as Dulera and tiotropium and oxygen 2 L. The patient reports that there has been no change in these medications, did complete a course of antibiotics and has maintained 2 L of oxygen. She notes that she has been continuing to cough, although an absence of fever, although unclear if she has had any chills and she has had continued back pain for the last "months" and therefore presented to the emergency room. When asked if she has been coughing for months why did she come today, she does note that because she keeps coughing she decided to come to the hospital. She reports absence of shortness of breath with the similar presentation. She has had no nausea or vomiting. No diarrhea. She reports pain in her back that has been a long time. She takes one to two Tylenol tabs per day with some relief of her back pain. She notes she has had no difficulty obtaining her medication since discharge. In the emergency room, she was noted to be 85% on room air, however, not on oxygen that she was discharged with last hospital stay. PAST MEDICAL HISTORY: Includes: 1. COPD, per diagnosis at last hospital stay, no PFTs of note. 2. Asthma. 3. Hypertension. 4. Anxiety and depression. 5. Osteoarthritis of the spine. 6. Cataract removal. 7. Hysterectomy. 8. Left JUAN LUIS. HOME MEDICATIONS: Include: 1. Guaifenesin ER 1200 mg twice daily. 2. Tiotropium one cap daily. 3. Paxil 10 mg daily. 4. Advair 500/50 one puff twice daily. 5. Calcium vitamin D two tabs daily. 6. Tessalon caps 200 mg twice daily as needed for cough. 7. ProAir RespiClick two puffs every 4 hours as needed for shortness of breath. 8. Albuterol concentrated nebulizer every 4 hours as needed for shortness of breath. 9. Acetaminophen 650 mg every 4 hours as needed for pain or fever. ALLERGIES: To SULFA ANTIBIOTICS. FAMILY HISTORY: Positive for CAD as well as stomach cancer. SOCIAL HISTORY: Lives alone. No history of tobacco. No history of alcohol. Briefly worked at [employer], ambulates with a walker. REVIEW OF SYSTEMS: As per HPI; otherwise all other systems negative. PHYSICAL EXAMINATION GENERAL: Elderly woman, sitting up in bed. She does not cough during the course of our interaction. VITAL SIGNS: In the emergency room, 111/49, heart rate 91, respiratory rate of 18, T-max 98.2. She is 97% on 2 L and 91% on room air. HEENT: Oropharynx is clear. Generally dry mucous membranes. NECK: She has not elevated JVD. No supraclavicular or cervical lymphadenopathy. LUNGS: Clear to auscultation throughout. HEART: She has regular rate and rhythm. She has a loud 2/6 systolic ejection murmur throughout the precordium. ABDOMEN: Soft, nontender, and nondistended. EXTREMITIES: Warm and well perfused without clubbing, cyanosis, or edema. She has less than 2 seconds cap refill. NEUROLOGIC: She is alert and oriented x3. She has some difficulty naming the year, although is able to tell me it is 2016 and that is between December and January, and it is 01/22/17. She has some difficulty naming the president, although does finally able to indicate it is President Jasmin. When asked if she can subtract 7 from 100, she dismisses and says she is unable to perform this task even once. Cranial nerves II through XII are intact. She moves all extremities. She has no apparent anxiety, agitation or depression. DIAGNOSTIC STUDIES/LAB DATA: Pertinent labs reviewed. White blood cell count is 10.1. She has 67% neutrophils. Hemoglobin 12.2, MCV of 87, platelets 124. Sodium 137, potassium 4.4, chloride 98, bicarb 34, BUN 13, creatinine 0.83, lactic acid 0.8. Troponin I 0.01. Data reviewed. Chest x-ray, portable, impression: Left lower lung consolidation with smaller pleural effusion. EKG: Sinus tachycardia 91 beats per minute, left axis, inferior Q's, II, III, and aVF with late R-wave progression. ASSESSMENT AND PLAN: This is an 86-year-old female with recent hospital stay of shortness of breath and cough, representing to the hospital with cough and absence of shortness of breath with chest x-ray concerning for left lower lobe pneumonia. 1. Left lower lobe pneumonia indicated on portable chest x-ray in the absence of clinical findings on exam and no leukocytosis and no cough throughout the course of our exam, absence of fever. The patient received one dose of ciprofloxacin in the emergency room. We will give dose of ceftriaxone once now. Hold additional antibiotics. Check procalcitonin, ESR and CRP. If any of the above are elevated, consider continued antibiotics, which I have ordered for tomorrow and with the addition of azithromycin, can consider repeat chest x- ray PA and lateral to further elucidate left lower lobe consolidation based on above testing. 2. Asthma. Suspicious for COPD based on previous presentation. Continue albuterol. Continue Dulera, tiotropium. 3. Anxiety and depression. Continue Paxil. 4. History of hypertension. Not indicated on this exam, off of medications. 5. DVT prophylaxis: Lovenox. [id number]/[facility] #: [id number] MTDDerik
[2017-01-23] MEDS: Acetaminophen TAB* 325 MG PO PRN ×2 (06:20→20:12)
[2017-01-23] MEDS: Tiotropium CAP.INH* CAP.INH/18 MCG (USE ORDER SET !) INH SCH (08:09)
[2017-01-23] MEDS: Mometasone/Formoter 200/5 MDI INH SCH ×2 (08:09→19:59)
[2017-01-23] MEDS ORDERED: Fluticasone-Salmeterol 500-50* DISKUS INH SCH (09:00)
[2017-01-23] MEDS ORDERED: Spiriva Inhaler DEVICE* 1 EACH DEVICE ONE (09:00)
[2017-01-23] MEDS: PARoxetine HCL TAB* 10 MG PO SCH (09:22)
[2017-01-23] MEDS: Benzonatate CAP* 100 MG PO SCH ×2 (09:22→20:13)
[2017-01-23] MEDS: guaiFENesin ER TAB 600 MG PO SCH ×2 (09:22→20:12)
--- NOTE | 2017-01-23 17:26 | PN ---
Subjective Date of Service: 01/23/17 Interval History: Patient seen and examined at bedside. Denies fever, chills, shortness of breath , chest discomfort, N/V/D. Pt states that she uses 2L O2 at home. She feels that her breathing is much better today, then on arrival. Family History: Unchanged from Admission Social History: Unchanged from Admission Past Medical History: Unchanged from Admission Objective Active Medications: Acetaminophen (Tylenol Tab*) 650 mg PO Q4H PRN Reason: FEVER/PAIN Albuterol (Ventolin Hfa Inhaler*) 2 puff INH Q4H PRN Reason: SOB/WHEEZING Benzonatate (Tessalon Cap*) 100 mg PO BID JEFE Enoxaparin Sodium (Lovenox(*)) 40 mg SUBCUT Q24H JEFE Guaifenesin (Mucinex*) 1,200 mg PO BID JEFE Ceftriaxone Sodium 1,000 mg/ (Sodium Chloride) 50 mls @ 200 mls/hr IVPB Q24H JEFE Mometasone Furoate/Formoterol Fumar (Dulera 200/5 Mdi*) 2 puff INH BID JEFE Ondansetron HCl (Zofran Inj*) 4 mg IV Q4H PRN Reason: NAUSEA Paroxetine HCl (Paxil Tab*) 10 mg PO DAILY JEFE Tiotropium [place] (Spiriva Cap.Inh*) 1 cap INH DAILY [facility] Vital Signs 01/22/17 01/22/17 01/22/17 22:00 22:02 23:21 Temperature 98.1 F 98.1 F 97.7 F Pulse Rate 92 92 90 Respiratory 19 19 16 Rate Blood Pressure 119/61 119/61 108/48 (mmHg) O2 Sat by Pulse 97 97 96 Oximetry 01/23/17 01/23/17 01/23/17 04:08 04:17 08:04 Temperature 97.3 F 97.3 F Pulse Rate 90 95 Respiratory 16 15 Rate Blood Pressure 96/58 116/52 126/59 (mmHg) O2 Sat by Pulse 98 97 Oximetry 01/23/17 08:15 Temperature Pulse Rate 68 Respiratory 14 Rate Blood Pressure (mmHg) O2 Sat by Pulse 95 Oximetry Oxygen Devices in Use Now: Nasal Cannula - 2 L Appearance: NAD, sitting up in bed Ears/Nose/Mouth/Throat: Mucous Membranes Moist Respiratory: Symmetrical Chest Expansion and Respiratory Effort, Clear to Auscultation Cardiovascular: RRR, - - Grade 3/6 systoic murmur, heard best at the left upper sternal border but across the percordium Extremities: No Edema Skin: No Rash or Ulcers Neurological: Alert and Oriented x 3, NL Muscle Strength and Tone Lines/Tubes/Other Access: Clean, Dry and Intact Peripheral IV - site benign Nutrition: Taking PO's Result Diagrams: 01/22/17 18:50 01/22/17 18:50 Microbiology and Other Data: Microbiology 01/23/17 07:20 Legionella Urinary Antigen - Final Urine Negative Legionella Streptococcus pneumoniae Ag Screen - Final Negative S. pneumo Antigen Assess/Plan/Problems-Billing Assessment: Ms. Umaña is an 86 yo female with PMH significant for COPD, asthma, HTN, anxiety , depression, osteoarthritis of the spine who presented to the emergency room with complaints of cough and back pain. - Patient Problems (1) Pneumonia Code(s): J18.9 - PNEUMONIA, UNSPECIFIED ORGANISM SNOMED Code(s): 042034670 Comment: - Afebrile and no leukocytosis - Chest xray shows left lower lobe infiltrate - Procalcitonin <0.1, ESR 88, CRP 17.51 - Continue Ceftriaxone - Repeat chest xray PA and LAT in AM (2) COPD (chronic obstructive pulmonary disease) Code(s): J44.9 - CHRONIC OBSTRUCTIVE PULMONARY DISEASE, UNSPECIFIED SNOMED Code(s): 73387628 Comment: - No signs of exacerbation - Hx Asthma - Continue albuterol prn, dulera and spiriva (3) Anxiety and depression Code(s): F41.9 - ANXIETY DISORDER, UNSPECIFIED; F32.9 - MAJOR DEPRESSIVE DISORDER, SINGLE EPISODE, UNSPECIFIED SNOMED Code(s): 645448404 Comment: - Continue Paxil (4) History of back pain Code(s): Z87.39 - PERSONAL HISTORY OF DISEASES OF THE MS SYS AND CONN TISS SNOMED Code(s): 410220999 Comment: - History of Osteoarthritis of the spine - Supportive care, pain management - PT eval (5) Hypertension Current Visit: No Status: Chronic Code(s): I10 - ESSENTIAL (PRIMARY) HYPERTENSION SNOMED Code(s): 85147484 Comment: - Normotensive (6) DVT prophylaxis Code(s): XWN2199 - SNOMED Code(s): 890278292 Comment: - monalisa (7) Full code status Code(s): Z78.9 - OTHER SPECIFIED HEALTH STATUS SNOMED Code(s): 421327166 Status and Disposition: OBV to Inpatient. Discharge to home when medically stable.
[2017-01-23] MEDS: cefTRIAXone VIAL(*) 1,000 MG in NS 0.9% 50 ML* 50 ML IVPB SCH (20:12)
[2017-01-23] MEDS: Enoxaparin(*) 40 MG/0.4 ML SYR SUBCUT SCH (20:13)
[2017-01-24 05:52] LABS: Hematocrit 33 % (35-47); Hemoglobin 11.3 g/dl (12.0-16.0); Mean Corpuscular HGB Conc 34 g/dl (31-36); Mean Corpuscular Hemoglobin 30 pg (27-31); Mean Corpuscular Volume 87 fL (80-97); Mean Platelet Volume 7 um3 (7.4-10.4); Red Blood Count 3.81 10^6/ul (4.0-5.4); Red Cell Distribution Width 14 % (10.5-15); White Blood Count 8.8 10^3/ul (3.5-10.8)
[2017-01-24 06:10] LABS: BUN/Creatinine Ratio 17.9 (8-20); Calcium 9.6 mg/dL (8.6-10.3); EGFR African American 90.1 (>60); Potassium 4.4 mmol/L (3.5-5.0)
[2017-01-24] MEDS: Acetaminophen TAB* 325 MG PO PRN ×2 (07:19→17:35)
[2017-01-24] MEDS: guaiFENesin ER TAB 600 MG PO SCH ×2 (07:20→21:12)
[2017-01-24] MEDS: PARoxetine HCL TAB* 10 MG PO SCH (07:21)
[2017-01-24] MEDS: Benzonatate CAP* 100 MG PO SCH ×2 (07:21→21:11)
--- NOTE | 2017-01-24 08:48 | RAD ---
INDICATION: Cough, evaluate for pneumonia. COMPARISON: Comparison is made with prior chest x-ray studies from January 04, 2017 and January 22, 2017. TECHNIQUE: AP and lateral views of the chest were obtained. FINDINGS: The heart appears mildly enlarged and unchanged. There is a focal infiltrate in the left lower lobe which is unchanged. No pleural effusion is seen. IMPRESSION: LEFT LOWER LOBE INFILTRATE, UNCHANGED, RECOMMEND FOLLOW-UP CHEST X-RAYS TO RESOLUTION.
[2017-01-24] MEDS: Mometasone/Formoter 200/5 MDI INH SCH ×2 (09:29→20:10)
[2017-01-24] MEDS: Tiotropium CAP.INH* CAP.INH/18 MCG (USE ORDER SET !) INH SCH (09:30)
--- NOTE | 2017-01-24 13:08 | PN ---
Subjective Date of Service: 01/24/17 Interval History: Patient seen and examined at bedside. denies fever, chills, shortness of breath , chest discomfort, N/V/D. Pt states that she has been having back pain since she fell a few months ago. Denies numbness or tingling in her legs. Pt states that she had left sided neck pain that radiated to her chest pain and left arm, and this has resolved since receiving pain medication in the emergency room. Pt states that she is willing to go to rehab. Family History: Unchanged from Admission Social History: Unchanged from Admission Past Medical History: Unchanged from Admission Objective Active Medications: Acetaminophen (Tylenol Tab*) 650 mg PO Q4H PRN Reason: FEVER/PAIN Albuterol (Ventolin Hfa Inhaler*) 2 puff INH Q4H PRN Reason: SOB/WHEEZING Benzonatate (Tessalon Cap*) 100 mg PO BID JEFE Enoxaparin Sodium (Lovenox(*)) 40 mg SUBCUT Q24H JEFE Guaifenesin (Mucinex*) 1,200 mg PO BID JEFE Ceftriaxone Sodium 1,000 mg/ (Sodium Chloride) 50 mls @ 200 mls/hr IVPB Q24H JEFE Mometasone Furoate/Formoterol Fumar (Dulera 200/5 Mdi*) 2 puff INH BID JEFE Ondansetron HCl (Zofran Inj*) 4 mg IV Q4H PRN Reason: NAUSEA Paroxetine HCl (Paxil Tab*) 10 mg PO DAILY JEFE Tiotropium [place] (Spiriva Cap.Inh*) 1 cap INH DAILY [facility] Vital Signs 01/23/17 01/23/17 01/23/17 19:59 20:34 23:36 Temperature 98.2 F 98.0 F Pulse Rate 103 102 92 Respiratory 18 20 16 Rate Blood Pressure 121/53 122/66 (mmHg) O2 Sat by Pulse 95 98 97 Oximetry 01/23/17 01/24/17 01/24/17 23:54 03:21 08:08 Temperature 98.0 F Pulse Rate 93 Respiratory 19 16 16 Rate Blood Pressure 134/58 (mmHg) O2 Sat by Pulse 91 Oximetry Oxygen Devices in Use Now: Nasal Cannula - 2 L Appearance: NAD, sitting up in a chair Ears/Nose/Mouth/Throat: Mucous Membranes Moist Respiratory: Symmetrical Chest Expansion and Respiratory Effort, Clear to Auscultation Cardiovascular: NL Sounds; No Murmurs; No JVD, RRR Extremities: No Edema, - - No tenderness with palpation to spine Skin: No Rash or Ulcers Neurological: Alert and Oriented x 3, NL Muscle Strength and Tone Lines/Tubes/Other Access: Clean, Dry and Intact Peripheral IV - site benign Nutrition: Taking PO's Result Diagrams: 01/24/17 05:40 01/24/17 05:40 Microbiology and Other Data: Microbiology 01/23/17 07:20 Legionella Urinary Antigen - Final Urine Negative Legionella Streptococcus pneumoniae Ag Screen - Final Negative S. pneumo Antigen Assess/Plan/Problems-Billing Assessment: Ms. Umaña is an 86 yo female with PMH significant for COPD, asthma, HTN, anxiety , depression, osteoarthritis of the spine who presented to the emergency room with complaints of cough and back pain. - Patient Problems (1) Pneumonia Code(s): J18.9 - PNEUMONIA, UNSPECIFIED ORGANISM SNOMED Code(s): 922349240 Comment: - Afebrile and no leukocytosis - Chest xray shows left lower lobe infiltrate - Procalcitonin <0.1, ESR 88, CRP 17.51 - Continue Ceftriaxone (2) COPD (chronic obstructive pulmonary disease) Code(s): J44.9 - CHRONIC OBSTRUCTIVE PULMONARY DISEASE, UNSPECIFIED SNOMED Code(s): 34709715 Comment: - No signs of exacerbation - Hx Asthma - Continue albuterol prn, dulera and spiriva (3) Anxiety and depression Code(s): F41.9 - ANXIETY DISORDER, UNSPECIFIED; F32.9 - MAJOR DEPRESSIVE DISORDER, SINGLE EPISODE, UNSPECIFIED SNOMED Code(s): 064452760 Comment: - Continue Paxil (4) History of back pain Code(s): Z87.39 - PERSONAL HISTORY OF DISEASES OF THE MS SYS AND CONN TISS SNOMED Code(s): 132332493 Comment: - History of Osteoarthritis of the spine - CT spine 10/2016 - compression fx L2, L3, L4 and L5 and T11 (Secondary to falls in May and October 2016) - Supportive care, pain management - PT eval (5) Hypertension Code(s): I10 - ESSENTIAL (PRIMARY) HYPERTENSION SNOMED Code(s): 15853384 Comment: - Normotensive (6) DVT prophylaxis Code(s): HRO0028 - SNOMED Code(s): 298819038 Comment: - vandax (7) Full code status Code(s): Z78.9 - OTHER SPECIFIED HEALTH STATUS SNOMED Code(s): 283328146 Status and Disposition: OBV to Inpatient. Plan for discharge to subacute rehab, possibly tomorrow.
[2017-01-24] MEDS: Enoxaparin(*) 40 MG/0.4 ML SYR SUBCUT SCH (21:12)
[2017-01-24] MEDS: cefTRIAXone VIAL(*) 1,000 MG in NS 0.9% 50 ML* 50 ML IVPB SCH (21:12)
[2017-01-25] MEDS: Mometasone/Formoter 200/5 MDI INH SCH (08:41)
[2017-01-25] MEDS: Tiotropium CAP.INH* CAP.INH/18 MCG (USE ORDER SET !) INH SCH (08:41)
--- NOTE | 2017-01-25 09:06 | DCNOTE ---
Subjective Date of Service: 01/25/17 Interval History: Patient seen and examined at bedside. Patient denies pain or shortness of breath. Patient nervous about going to [facility]. She is concerned about not getting a nap today. Family History: Unchanged from Admission Social History: Unchanged from Admission Past Medical History: Unchanged from Admission Objective Active Medications: Acetaminophen (Tylenol Tab*) 650 mg PO Q4H PRN Albuterol (Ventolin Hfa Inhaler*) 2 puff INH Q4H PRN Benzonatate (Tessalon Cap*) 100 mg PO BID JEFE Enoxaparin Sodium (Lovenox(*)) 40 mg SUBCUT Q24H JEFE Guaifenesin (Mucinex*) 1,200 mg PO BID JEFE Ceftriaxone Sodium 1,000 mg/ (Sodium Chloride) 50 mls @ 200 mls/hr IVPB Q24H JEFE Mometasone Furoate/Formoterol Fumar (Dulera 200/5 Mdi*) 2 puff INH BID JEFE Ondansetron HCl (Zofran Inj*) 4 mg IV Q4H PRN Paroxetine HCl (Paxil Tab*) 10 mg PO DAILY JEFE Tiotropium [place] (Spiriva Cap.Inh*) 1 cap INH DAILY JEFE 01/24/17 01/25/17 01/25/17 23:15 03:36 04:06 Temperature 98.0 F 97.9 F Pulse Rate 88 97 86 Respiratory 15 20 13 Rate Blood Pressure 120/50 112/54 (mmHg) O2 Sat by Pulse 97 96 98 Oximetry Oxygen Devices in Use Now: Nasal Cannula - 2 L Appearance: sitting up in bed, NAD Eyes: No Scleral Icterus, PERRLA Ears/Nose/Mouth/Throat: NL Teeth, Lips, Gums Neck: NL Appearance and Movements; NL JVP Respiratory: Symmetrical Chest Expansion and Respiratory Effort, Clear to Auscultation Cardiovascular: - - 3/6 systolic murmur at the RSB Abdominal: NL Sounds; No Tenderness; No Distention Extremities: No Edema Skin: No Rash or Ulcers Neurological: Alert and Oriented x 3 Lines/Tubes/Other Access: Clean, Dry and Intact Peripheral IV Result Diagrams: 01/24/17 05:40 01/24/17 05:40 Assess/Plan/Problems-Billing Assessment: Ms. Umaña is an 86 yo female with PMH significant for COPD, asthma, HTN, anxiety , depression, osteoarthritis of the spine who presented to the emergency room with complaints of cough and back pain. - Patient Problems (1) Pneumonia (2) COPD (chronic obstructive pulmonary disease) (3) Anxiety and depression (4) History of back pain (5) Hypertension (6) DVT prophylaxis (7) Full code status Status and Disposition: Stable to be discharged to [facility]. See dictated discharge summary.
--- NOTE | 2017-01-25 10:33 | DS ---
CC: Dr. Sharon Miranda DISCHARGE SUMMARY: DATE OF ADMISSION: 01/22/17 DATE OF DISCHARGE: 01/25/17 PRIMARY CARE PROVIDER: Dr. Sharon Miranda. ATTENDING PHYSICIAN: Dr. Toni Knowles* (report dictated by Livia Arredondo NP ) PRIMARY DIAGNOSES: 1. Left lower lobe pneumonia. 2. Chronic obstructive pulmonary disease. SECONDARY DIAGNOSES: 1. Hypertension. 2. Anxiety and depression. 3. Osteoarthritis. STUDIES WHILE IN THE HOSPITAL: 1. 01/24/17, left lower lobe infiltrate unchanged. Recommend followup until resolution. 2. Chest x-ray, portable, 01/22/17, left lower lobe consolidation with small pleural effusion. We recommend followup until resolution to exclude underlying pulmonary parenchymal pathology. MEDICATION AT THE TIME OF DISCHARGE: New medications: 1. Zithromax 250 mg tabs 2 tabs oral today, then 1 daily for 4 more days. 2. Ceftin 250 mg oral twice daily. The following medications are medications the patient came in on: 1. Caltrate 600 + D 2 tablets oral daily. 2. ProAir RespiClick 2 puffs inhaled every 4 hours as needed. 3. Tylenol 650 mg every 4 hours as needed. 4. Advair 500/50 one puff inhaled twice daily. 5. Paxil 10 mg oral daily. 6. Albuterol nebulizer every 4 hours as needed. 7. Spiriva 1 capsule inhaled daily. 8. Mucinex 1200 mg oral twice daily. 9. Tessalon 200 mg oral 3 times daily as needed. HISTORY OF PRESENT ILLNESS AND HOSPITAL COURSE: Ms. Umaña is an 86-year-old female recently admitted to [facility] from 01/04/17 to 01/07/17 for COPD exacerbation in the setting of not taking her home medications. She was discharged on 5 days of Ceftin as well as prednisone taper, Dulera, Spiriva, and oxygen. The patient re-presented to the emergency room because for her cough and back pain. In the emergency room, she was noted to be 85%, yet not on her oxygen she was discharged with. She was also found to have a chest x- ray concerning for left lower lobe pneumonia. She was admitted to the emergency room and placed on ceftriaxone only. ESR and CRP were elevated but procalcitonin was negative. Repeat chest x-ray, PA and lateral, the next morning also showed left lower lobe consolidation. The patient was placed on oxygen and her oxygen saturation recovered to the 90s. Her home COPD medications were continued, which include Dulera, Spiriva, and albuterol nebulizers. The patient's breathing did improve with the antibiotics and her home COPD medications. The patient was open to visiting nursing service previously, yet after discussion with her family, it was clear that the patient' s daughter was wishing for subacute rehab placement. The patient was open to this and bed placement was sought out at [facility]. Today, she is stable for transfer there. Vitals are as follows: 97.9, heart rate 86, respiratory rate 13, blood pressure 112/54, oxygen saturation 98%. At this point , she is stable for discharge. DISCHARGE PLAN: The patient is discharged on a regular diet. The patient should complete a course of Zithromax and ceftriaxone. She is not being given an additional dose of steroids. The patient should be seen by the staff physician within a week to 10 days. The patient should continue with physical therapy and occupational therapy until it is deemed that she is safe for discharge. The patient should return to the hospital if she experiences worsening shortness of breath or high fever. I reviewed all these instructions with the patient, she is agreeable with discharge today. This is a summarized report of a complex medical history and hospital stay. For more details, please see the entire medical record. TIME SPENT: Time for the discharge was 50 minutes and 25 minutes was spent with the patient discussing medications at discharge and followup instructions. CONDITION ON DISCHARGE: Stable. Reviewed by LIVIA ARREDONDO NP 01/25/2017 1830 [id number]/[facility] #: [id number] KRISTINE
[2017-01-25] MEDS: Benzonatate CAP* 100 MG PO SCH (10:41)
[2017-01-25] MEDS: guaiFENesin ER TAB 600 MG PO SCH (10:41)
[2017-01-25] MEDS: PARoxetine HCL TAB* 10 MG PO SCH (10:41)
[2017-01-25] MEDS: Acetaminophen TAB* 325 MG PO PRN (13:05)
[2017-01-25 14:11] VITALS: BP 138/58
--- NOTE | 2017-01-27 13:24 | ED ---
Katie Edmondson Edward, scribed for Yefri Murguia MD on 01/22/17 at 1837 . HPI Chest Pain - HPI Summary HPI Summary: 86 y/o female BIBA c/o CP in the L side radiating to the L shoulder and up the back of the neck, starting 2 days ago. The pain is constant. The CP is not alleviated or aggravated by anything. Associated sx: nonproductive cough, fatigue. Denies SOB. - History of Current Complaint Chief Complaint: EDChestPainROMI Hx Obtained From: Patient Onset/Duration: Started Days Ago Pain Intensity: 0 Chest Pain Location: Left Lateral Chest Pain Radiates: Yes Chest Pain Radiates To:: Shoulder, Neck Aggravating Factor(s): Nothing Alleviating Factor(s): Nothing Associated Signs and Symptoms: Positive: Chest Pain, Cough, Other: - fatigue. Negative: Shortness of Breath - Additional Pertinent History Primary Care Physician: CHUCK - Allergy/Home Medications Allergies/Adverse Reactions: Allergies Allergy/AdvReac Type Severity Reaction Status Date / Time Sulfa Antibiotics Allergy Rash Verified 01/04/17 18:13 PMH/Surg Hx/FS Hx/Imm Hx Previously Healthy: No Endocrine/Hematology History: Denies: Hx Anticoagulant Therapy, Hx Diabetes, Hx Thyroid Disease, Hx Unexplained Bleeding Cardiovascular History: Reports: Hx Hypertension Denies: Hx Pacemaker/ICD Respiratory History: Reports: Hx Asthma Denies: Hx Chronic Obstructive Pulmonary Disease (COPD) History: Denies: Hx Renal Disease Musculoskeletal History: Reports: Hx Arthritis, Other Musculoskeletal History - pelvic and hip fracture, arm fx Denies: Hx Rheumatoid Arthritis, Hx Osteoporosis Sensory History: Reports: Hx Contacts or Glasses, Hx Hearing Aid - BOTH, not currently in use, Hx Hearing Problem - [facility] Opthamlomology History: Reports: Hx Contacts or Glasses Neurological History: Denies: Hx Dementia, Hx Seizures, Other Neuro Impairments/Disorders Psychiatric History: Reports: Hx Anxiety, Hx Depression Denies: Hx Panic Disorder, Hx Substance Abuse - Cancer History Cancer Type, 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 Lt HIP REPAIR - FX- 02/2014. CATARACT. CHOLECYSTECTOMY - Immunization History Date of Tetanus Vaccine: 05/22/12 Date of Influenza Vaccine: 05/24/12 Infectious Disease History: Yes Infectious Disease History: Denies: Hx Hepatitis, Hx Human Immunodeficiency Virus (HIV), Hx of Known/ Suspected MRSA, Traveled Outside the [place] in Last 30 Days - Family History Known Family History: Negative: Other - NEG: breast CA Family History: Denies FHx of breast cancer. - Social History Alcohol Use: None Hx Substance Use: No Substance Use Type: Reports: None Smoking Status (MU): Never Smoked Tobacco Review of Systems Positive: Fatigue. Negative: Fever, Chills Negative: Erythema Negative: Sore Throat Positive: Chest Pain Positive: Cough. Negative: Shortness Of Breath Negative: Abdominal Pain, Vomiting, Nausea Negative: dysuria, hematuria Negative: Myalgia, Edema Negative: Rash Neurological: Other - No dizziness All Other Systems Reviewed And Are Negative: Yes Physical Exam - Summary Physical Exam Summary: Constitutional: Well-developed, Well-nourished, Alert. (-) Distressed Skin: Warm, Dry HENT: Normocephalic; Atraumatic Eyes: Conjunctiva normal Neck: Musculoskeletal ROM normal neck. (-) JVD, (-) Stridor, (-) Tracheal deviation Cardio: Rhythm regular, rate normal, Heart sounds normal; Intact distal pulses; The pedal pulses are 2+ and symmetric. Radial pulses are 2+ and symmetric. (-) Murmur Pulmonary/Chest wall: Effort normal. (-) Respiratory distress, (-) Wheezes, (-) Rales. Diminished breath sounds, more on the left than on the right Abd: Soft, (-) Tenderness, (-) Distension, (-) Guarding, (-) Rebound Musculoskeletal: (-) Edema Lymph: (-) Cervical adenopathy Neuro: Alert, Oriented x3 Psych: Mood and affect Normal Triage Information Reviewed: Yes Vital Signs On Initial Exam: Initial Vitals Temp Pulse Resp BP Pulse Ox 98.2 F 83 20 108/64 85 01/22/17 16:27 01/22/17 16:27 01/22/17 16:27 01/22/17 16:27 01/22/17 16:27 Vital Signs Reviewed: Yes - Paulette Coma Scale Coma Scale Total: 15 Diagnostics - Vital Signs Vital Signs Temp Pulse Resp BP Pulse Ox 01/22/17 17:30 94 110/72 96 01/22/17 17:00 82 23 107/55 95 01/22/17 16:49 25 01/22/17 16:48 93/72 01/22/17 16:27 98.2 F 83 20 108/64 85 - Laboratory Result Diagrams: 01/22/17 18:50 01/22/17 18:50 Lab Statement: Any lab studies that have been ordered have been reviewed, and results considered in the medical decision making process. - Radiology CXR Xray Interpretation: Positive (See Comments) - LEFT LOWER LUNG CONSOLIDATION WITH SMALL LEFT PLEURAL EFFUSION. RECOMMEND FOLLOW-UP UNTIL RESOLUTION TO EXCLUDE UNDERLYING PULMONARY PARENCHYMAL PATHOLOGY. Radiology Interpretation Completed By: Radiologist - EKG 1 EKG Interpretation: 19:00 - SR @ 91 BPM. NO STEMI Chest Pain Course/Dx - Course Assessment/Plan: 86 y/o female BIBA c/o CP in the L side radiating to the L shoulder and up the back of the neck, starting 2 days ago. The pain is constant. The CP is not alleviated or aggravated by anything. Associated sx: nonproductive cough, fatigue. Denies SOB. CXR SHOWS LEFT LOWER LUNG CONSOLIDATION WITH SMALL LEFT PLEURAL EFFUSION. RECOMMEND FOLLOW-UP UNTIL RESOLUTION TO EXCLUDE UNDERLYING PULMONARY PARENCHYMAL PATHOLOGY. EKG @ 19:00 - SR @ 91 BPM. NO STEMI. Pt's CP corresponds to the location of the infiltrate. Pt accepted for admission to [facility] by Dr. Murillo at 19:38. - Diagnoses Provider Diagnoses: Hypoxemia, Left sided chest pain, Healthcare-associated pneumonia - Provider Notifications Discussed Care Of Patient With: Berto Murillo Time Discussed With Above Provider: 19:38 Instructed by Provider To: Admit As Inpatient Discharge - Discharge Plan Condition: Stable Disposition: ADMITTED TO [facility] The documentation as recorded by the Katie durán Edward accurately reflects the service I personally performed and the decisions made by Shantal gray Jerry, MD.
== END 2017-01-25 16:20 | DRG 190 ==
LOC: ED 16:10 → MED 20:53 → OBSVTOIN 01-23 19:19
PROVIDERS: ADMIT Internal Medicine; ATTEND Hospitalist
DX: J44.0 Chronic obstructive pulmonary disease with (acute) lower respiratory infection (principal); J18.9 Pneumonia, unspecified organism; I10 Essential (primary) hypertension; F32.9 Major depressive disorder, single episode, unspecified; H91.93 Unspecified hearing loss, bilateral; R40.2412 Glasgow coma scale score 13-15, at arrival to emergency department; F41.9 Anxiety disorder, unspecified; Z96.642 Presence of left artificial hip joint; M54.9 Dorsalgia, unspecified; M47.9 Spondylosis, unspecified; Z97.4 Presence of external hearing-aid; Z85.828 Personal history of other malignant neoplasm of skin; Z90.710 Acquired absence of both cervix and uterus; Z90.49 Acquired absence of other specified parts of digestive tract; Z98.49 Cataract extraction status, unspecified eye; Z82.49 Family history of ischemic heart disease and other diseases of the circulatory system; Z80.0 Family history of malignant neoplasm of digestive organs; Z88.2 Allergy status to sulfonamides
CPT/HCPCS: 36415; 71010; 71020; 80048; 80053; 83605; 84145; 84484; 85025; 85652; 86140; 87040; 87899; 93005; 94640; A9270-GY; G0378; J0692; J0696; J0744; J1650

== ENCOUNTER 2018-12-31 13:58 | Inpatient (IN) | payer MEDICARE ==
--- NOTE | 2018-12-31 14:29 | ED ---
Back Pain - HPI Summary HPI Summary: This patient is an 88 year old female presenting to [facility] with a chief complaint of back pain. The patient states she has fallen within the last week but did not fall today. She states the reason she is covered in fleas and she has cats in her apartment. She states when she has fallen that she has always landed on her back, and has not hit her head or lost consciousness. She rates her back pain 8/10 in severity. Her pain is chronic and she states she has been out of her medication for a few weeks. Pt denies any fever, chills, erythema of eyes, sore throat, CP, SOB, cough, abdominal pain, N/V, dysuria, hematuria, myalgia, edema, rash, or dizziness. - History of Current Complaint Stated Complaint: BACK PIAN Time Seen by Provider: 12/31/18 14:18 Hx Obtained From: Patient Onset/Duration: Still Present Severity Initially: Moderate Severity Currently: Moderate Pain Intensity: 8 Pain Scale Used: 0-10 Numeric - Allergies/Home Medications Allergies/Adverse Reactions: Allergies Allergy/AdvReac Type Severity Reaction Status Date / Time MS Sulfa Antibiotics Allergy Rash Verified 01/04/17 18:13 [Sulfa Antibiotics] Home Medications: Home Medications Acetaminophen [Tylenol Extra Strength] 500 - 1,000 mg PO Q8HR 12/31/18 [History Confirmed 12/31/18] Albuterol 2.5MG/3ML (0.083%)* [Ventolin 2.5 MG/3 ML NEB.LYNETTE*] 2.5 mg INH Q4H PRN 12/31/18 [History Confirmed 12/31/18] Albuterol Sulfate [Proventil Hfa] 13.4 gm INH DAILY 12/31/18 [History Confirmed 12/31/18] Wilman/D3/Mag11/Zinc/Assembly Repairer/Humza/Bor [Caltrate 600+D Plus] 2 tab PO DAILY 12/31/18 [ History Confirmed 12/31/18] Lisinopril TAB* [Prinivil TAB*] 2.5 mg PO DAILY 12/31/18 [History Confirmed 01/10] PARoxetine HCL TAB* [Paxil TAB*] 20 mg PO DAILY 12/31/18 [History Confirmed 01/10] Propranolol TAB* [Inderal TAB*] 20 mg PO BID 12/31/18 [History Confirmed ] PMH/Surg Hx/FS Hx/Imm Hx Endocrine/Hematology History: Denies: Hx Anticoagulant Therapy, Hx Diabetes, Hx Thyroid Disease, Hx Unexplained Bleeding Cardiovascular History: Reports: Hx Hypertension Denies: Hx Pacemaker/ICD Respiratory History: Reports: Hx Asthma Denies: Hx Chronic Obstructive Pulmonary Disease (COPD) History: Denies: Hx Renal Disease Musculoskeletal History: Reports: Hx Arthritis, Other Musculoskeletal History - pelvic and hip fracture, arm fx Denies: Hx Rheumatoid Arthritis, Hx Osteoporosis Sensory History: Reports: Hx Contacts or Glasses, Hx Hearing Aid - BOTH, not currently in use, Hx Hearing Problem - [facility] Opthamlomology History: Reports: Hx Contacts or Glasses Neurological History: Denies: Hx Dementia, Hx Seizures, Other Neuro Impairments/Disorders Psychiatric History: Reports: Hx Anxiety, Hx Depression Denies: Hx Panic Disorder, Hx Substance Abuse - Cancer History Cancer Type, 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 Lt HIP REPAIR - FX- 02/2014. CATARACT. CHOLECYSTECTOMY - Immunization History Date of Tetanus Vaccine: 05/22/12 Date of Influenza Vaccine: 05/24/12 Infectious Disease History: Denies: Hx Hepatitis, Hx Human Immunodeficiency Virus (HIV), Hx of Known/ Suspected MRSA - Family History Known Family History: Negative: Other - NEG: breast CA Family History: Denies FHx of breast cancer. - Social History Alcohol Use: None Hx Substance Use: No Substance Use Type: Reports: None Smoking Status (MU): Never Smoked Tobacco Review of Systems Negative: Fever, Chills Negative: Erythema Negative: Sore Throat Negative: Chest Pain Negative: Shortness Of Breath, Cough Negative: Abdominal Pain, Vomiting, Nausea Negative: dysuria, hematuria Negative: Myalgia, Edema Negative: Rash Neurological: Other - Neg: Dizziness All Other Systems Reviewed And Are Negative: No Physical Exam - Summary Physical Exam Summary: Constitutional: Well-developed, Well-nourished, Alert. (-) Distressed Skin: Warm, Dry HENT: Normocephalic; Atraumatic Eyes: Conjunctiva normal Neck: Musculoskeletal ROM normal neck. (-) JVD, (-) Stridor, (-) Tracheal deviation Cardio: Rhythm regular, rate normal, Heart sounds normal; Intact distal pulses; The pedal pulses are 2+ and symmetric. Radial pulses are 2+ and symmetric. (-) Murmur Pulmonary/Chest wall: Effort normal. (-) Respiratory distress, (-) Wheezes, (-) Rales Abd: Soft, (-) tenderness, (-) Distension, (-) Guarding, (-) Rebound Musculoskeletal: (-) Edema Lymph: (-) Cervical adenopathy Neuro: Alert, Oriented x3 Psych: Mood and affect Normal Triage Information Reviewed: Yes Vital Signs On Initial Exam: Temp Pulse Resp BP Pulse Ox 98.1 F 73 18 132/64 90 12/31/18 14:19 12/31/18 14:19 12/31/18 14:19 12/31/18 14:19 12/31/18 14:19 Vital Signs Reviewed: Yes Diagnostics - Laboratory Result Diagrams: 12/31/18 15:24 12/31/18 15:24 Lab Statement: Any lab studies that have been ordered have been reviewed, and results considered in the medical decision making process. - CT Lumbar Spine CT Interpretation Completed By: Radiologist Summary of CT Findings: 1. There is a moderate to severe acute to subacute compression fraceture of the T12 vertrebral body. 2. There are moderate to sevre chronic compression fractures of the L2, L3, L4, and L5 vertebral bodies. 3. Moderate to severe lumbar spondylosis. ED Provider has reviewed this report. Cervical Spine CT Interpretation Completed By: Radiologist Summary of CT Findings: 1. Chronic Type II odontoid fracture. 2. Acute osseous injury to the cervical spine. 3. Osteopenia. 4. Degenerative disease. ED Provider has reviewed this report. Brain CT Interpretation Completed By: Radiologist Summary of CT Findings: No acute intracranial pathology. Chronic small vessel ischemic change. Moderate sinus mucosal inflammatory disease with an air fluid level in the sphenoid sinus. In the correct clinical setting, this may represent acute sinusitis. ED Provider has reviewed this report. - EKG 1532 Cardiac Rate: NL - 70 BPM EKG Rhythm: Sinus Rhythm Summary of EKG Findings: No STEMI. Back Pain Course/Dx - Course Course Of Treatment: This patient is an 88 year old female presenting to [facility] with a chief complaint of back pain. Lumbar CT revealed 1. There is a moderate to severe acute to subacute compression fraceture of the T12 vertrebral body. 2. There are moderate to sevre chronic compression fractures of the L2, L3, L4, and L5 vertebral bodies. 3. Moderate to severe lumbar spondylosis. Cervical Spine CT revealed 1. Chronic Type II odontoid fracture. 2. Acute osseous injury to the cervical spine. 3. Osteopenia. 4. Degenerative disease. The patient will need to be admitted to the hospital. Dr. Watson, hospitalist, accepted the patient for admission. This plan was discussed with the patient and she was agreeable with this plan. - Diagnoses Provider Diagnoses: Compression fracture, Failure to thrive, Frequent falls - Provider Notifications Discussed Care Of Patient With: Crowsilbianka Chanulos - Neurosurgery Time Discussed With Above Provider: 17:00 - TLSO Brace, MRI tomorrow morning Discharge ED - Sign-Out/Discharge Documenting (check all that apply): Patient Departure - Admission - Discharge Plan Condition: Stable Disposition: ADMITTED TO [facility] Referrals: Lori Redding, [employer] [Primary Care Provider] - - Attestation Statements Document Initiated by Scribe: Yes Documenting Scribe: Berto Martinez Provider For Whom Moralesibe is Documenting (Include Credential): Yefri Murguia MD Scribe Attestation: Berto Edmondson, scribed for Yefri Mruguia MD on 12/31/18 at 1725. Status of Scribe Document: Ready
[2018-12-31 15:30] LABS: ABS Basophils 0.1 10^3/ul (0-0.2); ABS Eosinophils 0.4 10^3/ul (0-0.6); ABS Lymphocytes 0.9 10^3/ul (1.0-4.8); ABS Monocytes 0.5 10^3/ul (0-0.8); ABS Neutrophils 7.5 10^3/ul (1.5-7.7); Eosinophil % 4.7 %; Hematocrit 32 % (35-47); Lymphocyte % 9.2 %; Mean Corpuscular HGB Conc 35 g/dL (31-36); Mean Corpuscular Hemoglobin 30 pg (27-31); Mean Corpuscular Volume 88 fL (80-97); Mean Platelet Volume 7.3 fL (7.4-10.4); Platelet Count 294 10^3/uL (150-450); Red Blood Count 3.64 10^6 /uL (3.70-4.87); Red Cell Distribution Width 13 % (10-15); White Blood Count 9.5 10^3/uL (3.5-10.8)
[2018-12-31 16:06] LABS: Albumin/Globulin Ratio 1.4 (1-3); Calcium 9.8 mg/dL (8.6-10.3); EGFR African American 63.3 (>60); EGFR Non-African American 52.3 (>60); Globulin 2.9 g/dL (2-4); Magnesium 1.9 mg/dL (1.9-2.7); Potassium 4.6 mmol/L (3.5-5.0); Total Bilirubin 0.4 mg/dL (0.2-1.0); Total Protein 6.9 g/dL (6.4-8.9)
[2018-12-31 16:52] LABS: TSH (Thyroid Stimulating Horm) 0.94 mcIU/mL (0.34-5.60)
[2018-12-31] MEDS ORDERED: Albuterol 2.5 MG/3 ML NEB.SOL* (0.083%) INH PRN (18:36)
[2018-12-31] MEDS ORDERED: NS 0.9% 1000 ML** 1,000 ML IV SCH (18:45)
[2018-12-31 18:54] LABS: Folate 12.46 ng/mL (>3.99)
--- NOTE | 2018-12-31 21:24 | HP ---
HISTORY AND PHYSICAL: DATE OF ADMISSION: 12/31/18 PRIMARY CARE PROVIDER: Lori Redding NP. EXTENSION PROFESSOR: Dania Umaña, the patient's daughter. CODE STATUS: Full. CHIEF COMPLAINT: Back pain. REASON FOR ADMISSION: Acute T12 fracture, pain control, frequent falls. HISTORY OF PRESENT ILLNESS: An 88-year-old female with past medical history of osteoarthritis, anxiety and depression, hypertension, asthma/COPD with no PFTs on file, history of compression fracture. She is brought in by her family with back pain, recent falls and what appears to be some decline in her abilities to care for herself. The patient is disorganized and minimizing historian, likely with mild cognitive impairment due to dementia at baseline. She reports falls over the last week and the family, her daughter, also reported that the house was covered with fleas. This was reported to the emergency room provider and the daughter was unavailable for interview at the time of my interview with the patient and the patient herself is an unreliable historian oriented only to herself. Because the patient had fallen she complained of some back pain and they noted that the house was also covered with fleas, the patient's family encouraged the patient to come to the emergency room where they initially accompanied her. The patient herself does report that she has been in her usual state of health until her "pain management" out last week. Her FLUOROSCOPE OPERATOR was run and does not show any controlled substances prescribed to her in the last 6 months and she is not on adequate history on what medication she takes. She does report having a history of a broken back. She reports falling, has been difficult and has a hard time taking care of herself. Otherwise, her review of systems is largely negative although she needs frequent reorientation to task and as above she is oriented to self at baseline. EMERGENCY ROOM COURSE: In the ER, blood pressure is 132/64, heart 73, temperature is 98.1, satting 90% on room air. Labs were done and largely unremarkable with the exception of a normocytic anemia to 11, creatinine of 1. Brain CT shows ? sinusitis and small vessel ischemia, chronic, but no otherwise acute intracranial abnormalities. Cervical spine shows chronic odontoid fracture unchanged from prior CT scans done in 2017, DDD and osteopenia and a lumbar spine CT shows a new T12 acute compression fracture with known old L2, 3 , 4, 5 compression fractures unchanged from prior imaging. Because of the patient's ?new AMS, although likely this is representing the cognitive decline over time and new acute T12 fracture with pain and reported frequent falls, the patient's is admitted for observation status for pain control, PT and OT assessment and further evaluation and treatment. Neurosurgery was contacted by the emergency room provider and Dr. Dyson recommends that the patient be admitted for MRI and possible fitting of brace and possible acute rehab means. PAST MEDICAL HISTORY: Chronic low back pain with history of OA and compression fractures; osteopenia; anxiety; depression; hypertension; asthma/COPD, on home inhalers; history of compression fractures ?; cognitive impairment and dementia at baseline. PAST SURGICAL HISTORY: History of odontoid fracture, status post hysterectomy, status post left total hip arthroplasty. MEDICATIONS: 1. Acetaminophen 500 mg to 1000 mg p.o. q.8 hours p.r.n. for pain. 2. Albuterol 2.5 mg q.4 hours p.r.n. for shortness of breath. 3. Multivitamin 2 tablets p.o. daily. 4. Fluticasone/salmeterol/Advair Diskus 1 puff inhaled b.i.d. 5. Lisinopril 2.5 mg p.o. daily. 6. Paroxetine 20 mg p.o. daily. 7. Propranolol 20 mg p.o. b.i.d. 8. Spiriva 1 cap inhaled daily. Of note, medical list is unclear. It is done from last hospitalization, which is in 2017 and the patient is unable to give list of current medications. Recommend pharmacy to do a thorough med rec with pharmacy when pharmacy is open. ALLERGIES: SULFA, hives FAMILY HISTORY: Positive for CAD. SOCIAL HISTORY: She is retired from [employer]. She is a nonsmoker. She denies alcohol and illicits. She ambulates with a walker at baseline. Her healthcare proxy is Dania Umaña, her daughter. She lives alone and is independent in her ADLs, but needs assistance with all IADLs and reports not driving. REVIEW OF SYSTEMS: Constitutional: The patient denies fevers, chills; negative for malaise. HEENT: Denies headaches, vision changes, sore throat. Cardiovascular: Denies chest pain, palpitations, orthopnea. Respiratory: Negative for shortness of breath, cough, pleuritic chest pain. GI: Denies nausea, vomiting, diarrhea and abdominal pain. : Negative for dysuria, hematuria. Musculoskeletal: Positive for chronic back pain, myalgias, arthralgias, weakness and falls. Skin: Negative for new rashes or lesions. Neurologic: Negative for focal weakness or numbness. Psychiatric: Negative for depression, anxiety. Endocrine: Negative for polyuria, polydipsia. Heme: Negative for easy bruising, bleeding, or lymphadenopathy. Allergy: Negative for frequent infections. PHYSICAL EXAMINATION GENERAL APPEARANCE: This is a frail elderly woman, sitting up in no acute distress, pleasant, forgetful and hard of hearing. VITAL SIGNS: At the time of physical exam, blood pressure is 118/62, heart rate is 92, respiratory rate 25, temperature afebrile. HEENT: Dry mucous membranes. Pupils are equal and reactive. Extraocular muscles are intact. Poor dentition. NECK: Supple without supraclavicular or cervical lymphadenopathy. RESPIRATORY: Lungs are clear to auscultation bilaterally with distant lung sounds. No wheeze. CARDIAC: Regular rate and rhythm with no murmurs, rubs, or gallops. ABDOMEN: Belly is soft, nontender, nondistended, with normoactive bowel sounds. BACK AND SPINE: Tender to palpation to lumbar spine at all facets. Mild paraspinal muscle tenderness. NEURO: Cranial nerves II through XII are intact with no gross focal neurologic deficits. The patient is oriented to herself and to hospital. She is not oriented to date, situation, current events. Otherwise, pleasant and cooperative. DIAGNOSTIC STUDIES/LAB DATA: Hemoglobin 11, hematocrit 32, white blood cell count 9.5, platelets 294. Sodium 139, potassium 4.6, chloride 104, carbon dioxide 30, anion gap 5, BUN 28, creatinine 1, glucose 109. Lactic acid 0.7, AST 13, ALT 8, alkaline phosphatase 62. Troponin 0. Vitamin B12 pending, folate pending, TSH 0.94. Imaging includes cervical spine CT, lumbar spine CT and brain CT showing acute new T12 fracture, old compression fracture of lumbar 2, 3, 4 [address] showing ?Sinusitis, chronic small vessel ischemia as well. Imaging and labs reviewed by myself. ASSESSMENT AND PLAN: A 88-year-old female with past medical history of osteoarthritis and chronic low back pain with history of compression fractures of lumbar spine, anxiety, depression, hypertension, chronic obstructive pulmonary disease, who was brought in her by her family with back pain, recent falls, and what appears to be some decline in her ability to care for herself. She has been admitted for observation for pain control, acute T12 fracture and continue workup of her cognitive impairment. 1. Falls. The patient reports multiple falls. PT/OT is ordered for the patient. 2. Compression fracture pf acute T12, which is new. Lumbar compression fractures are old. Start nasal calcitonin. Tylenol around the clock. Consult Neurosurgery and order MRIs. For pain control also add Toradol 15 mg IV q.6 hours p.r.n. 3. Depression and anxiety: Continue home Paxil. 4. Cognitive impairment. TSH is unremarkable. Add on B12 and folate. Consider true capacity evaluation, also would need collateral from daughter. Unfortunately, I have tried to reach her multiple times on the phone and have been unable to leave a message or reach her. According to ER providers, the daughter lives very close by and is involved with her care. 5. Flea infestation. Needs environment dealt with, social work consult was placed, again will need collateral from daughter. 6. Hypertension. Continue lisinopril and propranolol. 7. Chronic obstructive pulmonary disease/asthma. Continue home inhalers. 8. Acute kidney injury. Creatinine mildly elevated with the setting of elevated BUN. She is dry on exam. We will give 1 L slowly at 125 cc per hour. 9. DVT. The patient is a high risk, placed on Lovenox. 10. Code status deferred to full, which the patient endorses at this time. We will need further clarification of goals of care when able to speak to healthcare proxy, patient's daughter. 11. Disposition at the time of admission: Stable for admission to observation to [address] [place] [address] with neurosurgery consult and Neurosurgery has been made aware patient prior to this admission. TIME SPENT: Forty-five minutes was spent in the planning of this patient with over half of that spent directly at the bedside with the patient, providing direct patient care. Plan of care discussed with the patient who is amenable to observation and admission for pain control and further monitoring. We will need to touch base with daughter when day team and attending of record ultimately picks up case and decides and plan of care can be further discussed. [id number]/[facility] #: [id number] [facility] CENTERDerik
--- NOTE | 2018-12-31 21:32 | CONS ---
CONSULTATION NOTE: DATE OF CONSULT: 12/31/18 HISTORY OF PRESENT ILLNESS: The patient is a very pleasant 88-year-old female who was brought to the emergency room because of complaints of back pain. The patient reports that she has chronic back pain, and she has been out of her medications for a few weeks as reported to the emergency room. The patient has a remote history of falls, but no fall recently as she reports. I was requested to see the patient because CT scan of the cervical spine revealing C2 type 2 fracture which was present in CT scan of the cervical spine in [address] scan of the lumbar spine revealing T12, L2, L3, L4, and L5 compression fractures with mild advancement of the compression of the fractures of L2 to L5 based on the previous CT of lumbar spine from 2017. The patient reports of back pain. She denies neck pain. She denies any weakness, numbness , or tingling of her extremities. She denies recent falls. Also she has chronic difficulty with ambulation. She is using a walker. She lives alone, and she is a . She used to be a homemaker, and she has 2 children. Her daughter lives close to her house and her son lives in [place]. PAST MEDICAL HISTORY: Hypertension, asthma, ascites, history of acute pelvic fracture, hearing loss, anxiety, depression. PAST SURGICAL HISTORY: Cyst removal from the back, left hip repair for fracture , cataract surgery, cholecystectomy. HOME MEDICATIONS: 1. Acetaminophen. 2. Albuterol. 3. D3 calcium. 4. Magnesium. 5. Multivitamin. 6. Lisinopril. 7. Paroxetine. 8. Propranolol. ALLERGIES: SULFA antibiotics. FAMILY HISTORY: Noncontributory. SOCIAL HISTORY: Alcohol: Negative. Tobacco: Negative. Recreational drug use : Negative. PHYSICAL EXAM: The patient is not in acute distress. She is awake, alert, oriented x1 to 2. Her pupils are equal and reactive. Cranial nerves II through XII are grossly intact. Motor: 4-5/5 in all extremities. Sensory: Grossly intact to light touch. Deep tendon reflexes +1 bilaterally. No clonus or Babinski. Macdonald negative. The patient's straight-leg raising test is negative. The patient has no tenderness to palpation of the cervical, thoracic, and lumbar spine. She has good range of motion of her cervical spine. DIAGNOSTIC STUDIES: The patient had a CT scan of the brain that did not reveal any acute evidence of trauma. The patient had a CT scan of the cervical spine that reveals a C2 odontoid type 2 fracture, similar in configuration with the previous identified fracture on the CT scan from 2015. There might be a posterior cortex continuation compared to the previous fracture. The patient had a CT scan of the lumbar spine that revealed an L1 compression fracture as well as L2, L3, L4, and L5 compression fractures that have chronic appearance. The patient had similar fractures at the L2 to L5 in studies from 2017. ASSESSMENT: The patient is a very pleasant 88-year-old female with complaints of back pain with CT scan findings consistent with C2 type 2 fracture, possible chronic as well as multiple lumbar spine fractures and T12 fractures, also possible chronic osteoporotic fractures. PLAN: The patient is currently admitted to the hospital for pain control and further imaging. The patient is reported to have a poor social support as she was reported to be covered in fleas when she was found at home. We recommend bedrest and a [place] J collar. We recommend a CT scan of the thoracic spine and an MRI of the cervical, thoracic, and lumbar spine to assess the chronicity of the fractures. The patient may require a TLSO brace, if MRI confirms acute nature of the fracture. The patient may benefit from medical management of osteoporosis. Thank you for allowing us to participate in the care of this patient. Please do not hesitate to contact our office in case you have any further questions or concerns regarding the care of this patient. [id number]/[facility] #: [id number] KRISTINE
[2018-12-31] MEDS: Mometasone/Formoter 200/5 MDI INH SCH (23:34)
[2019-01-01] MEDS: Enoxaparin(*) 40 MG/0.4 ML SYR SUBCUT SCH ×2 (01:03→20:50)
[2019-01-01] MEDS: Propranolol TAB* 20 MG PO SCH ×2 (01:04→09:38)
[2019-01-01] MEDS: Acetaminophen TAB* 325 MG PO SCH ×4 (01:04→20:47)
[2019-01-01 07:06] LABS: Calcium 9.2 mg/dL (8.6-10.3); EGFR African American 56.1 (>60); EGFR Non-African American 46.4 (>60); Potassium 4.1 mmol/L (3.5-5.0)
[2019-01-01] MEDS: Mometasone/Formoter 200/5 MDI INH SCH ×2 (08:14→19:51)
[2019-01-01] MEDS: SPIRIVA Respimat* (tiotropium) 2.5 mcg/inh Inhaler INH SCH (08:14)
[2019-01-01] MEDS: Lisinopril TAB* 5 MG PO SCH (09:37)
[2019-01-01] MEDS: PARoxetine HCL TAB* 20 MG PO SCH (09:39)
[2019-01-01] MEDS: CALCITONIN ALT NARE SCH ×2 (09:39→13:14)
--- NOTE | 2019-01-01 09:53 | PN ---
Subjective Date of Service: 01/01/19 Interval History: HD #2 on 01/01 88F PMH chronic pain OA, chronic compression fracture, depression, anxiety, HTN , likely underlying dementia who presented with fall and back pain found to have acute on chronic compression fracture as well as some concern of FTT in home Overnight no acute events, MRI done of lumbar and throacic, cervical still pending, neurosurg aware, VSS This morning seen ambulating with PT assist of 1, is now in inupiat collar, has 10 /10 pain in back on interview and is very ALTURAS but otherwise pleasant, tolerating diet, voiding freely, no GI neuro complaints. Objective Active Medications: Acetaminophen (Tylenol Tab*) 975 mg PO Q8H [facility] Last Admin: 01/01/19 06:14 Dose: 975 mg Albuterol (Ventolin 2.5 Mg/3 Ml Neb.Darleen*) 2.5 mg INH Q4H PRN PRN Reason: SHORTNESS OF BREATH Calcitonin [place] (Fortical(Nr)) 200 units ALT NARE DAILY [facility]; Protocol Enoxaparin Sodium (Lovenox(*)) 40 mg SUBCUT Q24H [facility] Last Admin: 01/01/19 01:03 Dose: 40 mg Ketorolac Tromethamine (Toradol Inj*) 15 mg IV PUSH Q6H PRN PRN Reason: PAIN - MODERATE Lisinopril (Prinivil Tab*) 2.5 mg PO DAILY [facility] Mometasone Furoate/Formoterol Fumar (Dulera 200/5 Mdi*) 2 puff INH BID [facility] Last Admin: 01/01/19 08:14 Dose: 2 puff Paroxetine HCl (Paxil Tab*) 20 mg PO DAILY [facility] Propranolol HCl (Inderal Tab*) 20 mg PO BID [facility] Last Admin: 01/01/19 01:04 Dose: 20 mg Tiotropium Tenino (Spiriva Respimat 2.5 Mcg) 2 puff INH DAILY [facility] Last Admin: 01/01/19 08:14 Dose: 2 puff Vital Signs - 8 hr 01/01/19 03:54 Temperature 97.6 F Pulse Rate 57 Respiratory 19 Rate Blood Pressure 117/52 (mmHg) O2 Sat by Pulse 97 Oximetry Oxygen Devices in Use Now: None Appearance: Frail woman sitting in chair, ALTURAS, in inupiat collar Eyes: No Scleral Icterus, PERRLA Ears/Nose/Mouth/Throat: NL Teeth, Lips, Gums Neck: NL Appearance and Movements; NL JVP Respiratory: Clear to Auscultation Cardiovascular: - - 4/6 JEFFRY S1S2 Abdominal: NL Sounds; No Tenderness; No Distention, No Hepatosplenomegaly Lymphatic: No Cervical Adenopathy Extremities: No Edema Skin: No Rash or Ulcers Neurological: - - Oriented to self Result Diagrams: 12/31/18 15:24 01/01/19 05:56 Microbiology and Other Data: Microbiology 12/31/18 18:52 Stool Occult Blood (MAYUR) - Final Stool Diagnostic Imaging: MRI Thoracic Spine, Lumbar Spine-Compression fracture Assess/Plan/Problems-Billing Assessment: 88F PMH chronic pain OA, chronic compression fracture, depression, anxiety, HTN , likely underlying dementia who presented with fall and back pain found to have acute on chronic compression fracture as well as some concern of FTT in home - Patient Problems (1) Compression fracture Current Visit: Yes Status: Acute Code(s): ANX2398 - SNOMED Code(s): 607632073 Comment: - T12 Fracture in setting of chronic compression fracture - PT OT - Start calcium/vit d, calcitonin nasal spray, possible brace neurosurg consulted - Pain control with Tylenol standing, PRN low dose Toradol and breakthru low dose Oxy, Lidocaine patch (2) Failure to thrive Current Visit: Yes Status: Acute Code(s): NUS9483 - SNOMED Code(s): 73416523 Comment: - Discussion with daughter (documented below) reveals weight loss over the last 4 to 6 mo, decreased appetite and confusion, likely in the setting of dementia. (3) Dementia Current Visit: Yes Status: Acute Code(s): F03.90 - UNSPECIFIED DEMENTIA WITHOUT BEHAVIORAL DISTURBANCE SNOMED Code(s): 02973035 Comment: - Poor recall, oriented to self, daughter reports ongoing memory issues for > 1 year (4) Chronic kidney disease, stage II (mild) Current Visit: No Status: Acute Priority: Medium Onset Date: 03/17/14 Code(s): N18.2 - CHRONIC KIDNEY DISEASE, STAGE 2 (MILD) SNOMED Code(s): 673015699 Comment: - Appears baseline (5) Anxiety and depression Current Visit: No Status: Chronic Code(s): F41.9 - ANXIETY DISORDER, UNSPECIFIED; F32.9 - MAJOR DEPRESSIVE DISORDER, SINGLE EPISODE, UNSPECIFIED SNOMED Code(s): 843720982 Comment: - Continue Paxil (6) COPD (chronic obstructive pulmonary disease) Current Visit: No Status: Chronic Code(s): J44.9 - CHRONIC OBSTRUCTIVE PULMONARY DISEASE, UNSPECIFIED SNOMED Code(s): 72080603 Comment: - No signs of exacerbation - Hx Asthma - Continue albuterol prn, dulera and spiriva (7) Hypertension Current Visit: No Status: Chronic Code(s): I10 - ESSENTIAL (PRIMARY) HYPERTENSION SNOMED Code(s): 61981395 Comment: - Normotensive (8) DVT prophylaxis Current Visit: No Status: Acute Priority: Medium Onset Date: 03/17/14 Code(s): SAE5309 - SNOMED Code(s): 359266095 Comment: - lovenox (9) Full code status Current Visit: No Status: Acute Code(s): Z78.9 - OTHER SPECIFIED HEALTH STATUS SNOMED Code(s): 672371885 Comment: - Ongoing discussion with daughter Status and Disposition: Currently OBV, may change to inpatient as expect 3 nights, may need rehab pending PT eval Order changes 01/01: Optimize pain meds Plan: Await NS need for brace and PT, ongoing GOC discussion with daughter. I spoke with daughter today 1:30PM-2PM reveals mom lives alone with home instead, has been declining for several months, has concerns about her ability to care for self. Notable memory concerns for 1-2 years, weight loss unintended over several months. Will continue ongoing GOC discussion and also consider possible palliative referral, daughter to come in for family meeting 01/01 around 4PM
[2019-01-01] MEDS: oxyCODONE TAB* 5 MG TAB PO PRN (10:00)
[2019-01-01] MEDS: Ketorolac INJ* 15 MG/ML 1 ML VIAL IV PUSH PRN (10:01)
[2019-01-01 11:36] LABS: Urine Appearance Clear; Urine Bacteria Absent (Absent); Urine Bilirubin Negative (Negative); Urine Blood 1+ (Negative); Urine Color Yellow; Urine Glucose Negative (Negative); Urine Ketones Negative (Negative); Urine Nitrite Negative (Negative); Urine Protein Negative (Negative); Urine Red Blood Cell 3+(>10/hpf) (Absent); Urine Specific Gravity 1.025 (1.010-1.030); Urine Squamous Epithelial Cell Present (Absent); Urine Urobilinogen Negative (Negative); Urine White Blood Cell 2+(11-20/hpf) (Absent)
[2019-01-01] MEDS: Lidocaine PATCH 5%* 1 PATCH TRANSDERM SCH (13:12)
[2019-01-01] MEDS: Cholecalciferol TAB* 1000 UNITS PO SCH (14:32)
--- NOTE | 2019-01-01 17:26 | ECHO ---
*[facility]* [place] [address] Fax #: [phone] Transthoracic Echocardiogram Patient: Eusebia Umaña : 1930 Study Date: 01/01/2019 Age: 88 Gender: F HR: 61 bpm Height: 60 in /152.4 cm BSA: 1.41 m^2 Weight: 102.8 lb /46.7 kg BMI: 20.1 kg/m^2 *Accuracy Expert: * Renetta Sahu RD *Referring Physician: * Meredith Pate *Reading Physician: * Cele Andres MD Indications: Aortic Valve Disorder. History: Aortic stenosis Asthma. Cervical spine fracture with collar in place. Conclusions Summary: - Left ventricle: Systolic function is vigorous. The estimated ejection fraction is 60-65%. Doppler parameters are consistent with elevated ventricular end-diastolic filling pressure. - Right ventricle: Systolic function is normal. - Right atrium: The estimated right atrial pressure is 3 mm Hg. - Mitral valve: The findings are consistent with mild stenosis. There is mild regurgitation, directed posteriorly. The mean diastolic gradient is 6.0 mm Hg. The valve area by pressure half-time is 2.1 cm^2. - Aortic valve: The findings are consistent with moderate to severe stenosis. There is mild to moderate regurgitation. The mean systolic gradient is 22.0 mm Hg. The valve area by the velocity-time integral method is 0.63 cm^2. The valve area by the peak velocity method is 0.79 cm^2. The regurgitation pressure half-time is 467 ms. - Tricuspid valve: There is moderate regurgitation. Pulmonary artery pressure moderately elevated at 45 mmHg. - Aorta: The aorta is well visualized and mildly dilated. The ascending aorta internal dimension in the A-P direction, maximal systolic dimension is 3.7 cm. - Compared with prior study of 02/22/18, ventricular function not significantly changed. LVEDP elevation newly documented, stable based on mean gradient and peak velocity, SEBASTIAN calculations give a smaller (due to differing left ventricular outflow tract diameters used in the calculation). AI has progressed from mild. Mitral and tricsupid valve function are stable. Aorta diameter not significantly changed. Elevation in pulmonary artery pressure is new. Study data: Transthoracic echocardiogram. Procedure: Transthoracic echocardiography was performed. Image quality was good. Complete 2D, spectral Doppler, and color flow Doppler. Patient status: Observation. Patient room number: 410*2. Objective: Diagnostic evaluation. Rhythm: Normal sinus rhythm. Findings Left ventricle: The cavity size is normal. Wall thickness is mildly increased. Systolic function is vigorous. The estimated ejection fraction is 60-65%. Wall motion is normal; there are no regional wall motion abnormalities. Doppler parameters are consistent with abnormal left ventricular relaxation (grade 1 diastolic dysfunction). Doppler parameters are consistent with elevated ventricular end-diastolic filling pressure. Right ventricle: The cavity size is normal. Wall thickness is normal. Systolic function is normal. Ventricular septum: Well visualized. Left atrium: Well visualized. The atrium is at the upper limits of normal in size. Right atrium: Well visualized. The atrium is at the upper limits of normal in size. Atrial septum: Well visualized. Mitral valve: Well visualized. The leaflets are mildly thickened. No echocardiographic evidence for prolapse. The findings are consistent with mild stenosis. There is mild regurgitation, directed posteriorly. Aortic valve: Well visualized. The valve is trileaflet. The leaflets are moderately thickened. The findings are consistent with moderate to severe stenosis. There is mild to moderate regurgitation. Tricuspid valve: Well visualized. The leaflets are normal thickness. There is no evidence of stenosis. There is moderate regurgitation. Pulmonic valve: Well visualized. The leaflets are normal thickness. There is no evidence of stenosis. There is trace to mild regurgitation. Aorta: The aorta is well visualized and mildly dilated. The aortic arch appears normal. Pericardium: There is no pericardial effusion. No evidence of pleural fluid accumulation. Pulmonary arteries: Well visualized. Systemic veins: Not well visualized. Pulmonary veins: Visualization of the pulmonary venous anatomy is incomplete, but a significant abnormality is unlikely. Measurements Left ventricle Value Ref Aortic valve Value Ref MIK, LAX 3.8 cm 3.8 - Taj diam, ED 1.9 cm ----- 5.2 Taj diam/bsa, ED 1.3 cm/m^2 ----- ESD, LAX (L) 1.9 cm 2.2 - Peak v, S 3.35 m/sec ----- 3.5 VTI, S 82.2 cm ----- FS, LAX (H) 50 % 27 - 45 Mean grad, S 22.0 mm Hg ----- PW, ED, LAX (H) 1.3 cm 0.6 - Peak grad, S 45.0 mm Hg ----- 0.9 LVOT/AV, VTI ratio 0.25 ----- FS (H) 50 % 27 - 45 SEBASTIAN, VTI 0.63 cm^2 ----- Mid-wall FS 15 % -------- SEBASTIAN, Vmax 0.79 cm^2 ----- PW, ED (H) 1.3 cm 0.6 - AR peak v 3.75 m/sec ----- 0.9 AR PHT 467 ms ----- PW/ID, ED 0.33 -------- AR peak grad 56 mm Hg ----- E', lat taj, TDI (L) 4.7 cm/sec >=10.0 E/e', lat taj, TDI 37 -------- Mitral valve Value Ref E', med taj, TDI (L) 5.4 cm/sec >=7.0 Peak E 1.72 m/sec - ---- E/e', med taj, TDI 32 -------- Peak A 2.15 m/sec ---- - E', avg, TDI 5.1 cm/sec -------- Decel time 384 ms ---- - E/e', avg, TDI (H) 34 <=14 PHT 104 ms - ---- Mean grad, D 6.0 mm Hg ----- LVOT Value Ref Peak grad, D 18.0 mm Hg ----- Diam, S 1.80 cm -------- Peak E/A ratio 0.8 ----- Area 2.5 cm^2 -------- MVA, PHT 2.1 cm^2 ----- Peak jayson, S 1.04 m/sec -------- VTI, S 20.3 cm -------- Pulmonic valve Value Ref Mean grad, S 2 mm Hg -------- Peak v, S 0.92 m/sec ----- SV 52 ml -------- Peak grad, S 3.0 mm Hg ----- SV/bsa 37 ml/m^2 -------- Tricuspid valve Value Ref Ventricular septum Value Ref TR peak v (H) 3.24 m/sec <=2.8 IVS, ED (H) 1.1 cm 0.6 - Peak RV-RA grad, S 42 mm Hg ----- 0.9 Max TR jayson 3.24 m/sec ----- Right ventricle Value Ref Aortic root Value Ref MIK, LAX 2.8 cm -------- Root diam 3.0 cm <3.7 MIK minor ax, A4C 3.0 cm 1.9 - Root max diam, ED 3.0 cm <3.7 mid 3.5 Ascending aorta Value Ref Left atrium Value Ref AAo AP diam, S 3.7 cm ----- ML dim, A4C 3.4 cm -------- AAo AP diam/bsa, S 2.6 cm/m^2 ----- SI dim, A4C 5.0 cm -------- Vol/bsa, ES, 1-p 22 ml/m^2 11 - 40 Inferior vena cava Value Ref A4C Diam 1.6 cm ----- Vol/bsa, ES, A/L 22 ml/m^2 16 - 34 Right atrium Value Ref SI dim, ES (H) 6.2 cm 3.4 - 5.3 ML dim, ES, A4C 3.3 cm 2.6 - 4.4 SI dim, ES, A4C (H) 6.2 cm 3.4 - 5.3 SI dim/bsa, ES, A4C (H) 4.4 cm/m^2 1.9 - 3.1 Estimated RAP 3 mm Hg -------- Legend: (L) and (H) sonny values outside specified reference range. Prepared and electronically signed by Cele Andres MD 01/01/2019 17:26
--- NOTE | 2019-01-01 20:18 | PN ---
Progress Note - Progress Note Date of Service: 01/01/19 Note: Reviewed patient's imaging today, cervical spine MRI reveals a chronic fracture of C2 and confirmed by radiologist reports. MRI of thoracic spine demonstrates an acute fracture of T12. Radiologist report indicates acute injury of L2, but on the study it appears to be a possible subacute injury. Neurosurgery seen patient today, she is able to flex, extend and move head laterally with any pain. At this time she can discontinue wearing the [place] J collar, she can wear it for comfort. Neurosurgery recommends that patient get fitted for TLSO brace, once fitted also recommend standing up right x rays in brace of the thoracic and lumbar spine.
[2019-01-01] MEDS: Propranolol TAB* 10 MG PO SCH (20:47)
[2019-01-01] MEDS: Calcium Carbonate TAB* 1250 MG (CALCIUM 500 MG) PO SCH (20:48)
[2019-01-01] MEDS: Lidocaine Patch REMOVE* 1 NOTE MISC SCH (20:50)
[2019-01-02 05:36] LABS: BUN/Creatinine Ratio 31.6 (8-20); EGFR African American 54.4 (>60); Potassium 3.9 mmol/L (3.5-5.0)
[2019-01-02] MEDS: Acetaminophen TAB* 325 MG PO SCH ×3 (06:03→21:36)
[2019-01-02] MEDS: Lidocaine PATCH 5%* 1 PATCH TRANSDERM SCH (07:52)
[2019-01-02] MEDS: CALCITONIN ALT NARE SCH (07:52)
[2019-01-02] MEDS: PARoxetine HCL TAB* 20 MG PO SCH (07:53)
[2019-01-02] MEDS: Lisinopril TAB* 5 MG PO SCH (07:53)
[2019-01-02] MEDS: Propranolol TAB* 10 MG PO SCH ×2 (07:54→21:37)
[2019-01-02] MEDS: Calcium Carbonate TAB* 1250 MG (CALCIUM 500 MG) PO SCH ×2 (07:54→21:37)
[2019-01-02] MEDS: Cholecalciferol TAB* 1000 UNITS PO SCH (07:54)
[2019-01-02] MEDS: Mometasone/Formoter 200/5 MDI INH SCH ×2 (08:05→19:33)
[2019-01-02] MEDS: SPIRIVA Respimat* (tiotropium) 2.5 mcg/inh Inhaler INH SCH (08:05)
--- NOTE | 2019-01-02 08:51 | PN ---
Subjective Date of Service: 01/02/19 Interval History: HD #3 on 01/02 88F PMH chronic pain OA, chronic compression fracture, depression, anxiety, HTN , underlying dementia who presented with fall and back pain found to have acute on chronic compression fracture as well as e/o FTT in home. Overnight no acute events, VSS, neurosurg cleared pt from [facility], family meeting done for [facility], they are interested in [facility] Labs: Stable high Cr, no change, Echo done mod-severe OA She herself is without complaints, less pain today, did work with PT Objective Active Medications: Acetaminophen (Tylenol Tab*) 975 mg PO Q8H [facility] Last Admin: 01/02/19 06:03 Dose: 975 mg Albuterol (Ventolin 2.5 Mg/3 Ml Neb.Darleen*) 2.5 mg INH Q4H PRN PRN Reason: SHORTNESS OF BREATH Calcitonin [place] (Fortical(Nr)) 200 units ALT NARE DAILY [facility]; Protocol Last Admin: 01/02/19 07:52 Dose: 200 units Calcium Carbonate (Calcium Carbonate Tab*) 1,250 mg PO BID [facility] Last Admin: 01/02/19 07:54 Dose: 1,250 mg Cholecalciferol (Vitamin D Tab*) 1,000 units PO DAILY [facility] Last Admin: 01/02/19 07:54 Dose: 1,000 units Enoxaparin Sodium (Lovenox(*)) 40 mg SUBCUT Q24H [facility] Last Admin: 01/01/19 20:50 Dose: 40 mg Influenza Virus Vaccine (Fluarix Quad [id number] Syr) 0.5 ml IM .ONCE ONE Stop: 01/02/19 09:01 Last Admin: 01/02/19 07:52 Dose: 0.5 ml Ketorolac Tromethamine (Toradol Inj*) 15 mg IV PUSH Q6H PRN PRN Reason: PAIN - MODERATE Last Admin: 01/01/19 10:01 Dose: 15 mg Lidocaine (Lidoderm 5% Patch*) 1 patch TRANSDERM DAILY [facility] Last Admin: 01/02/19 07:52 Dose: 1 patch Lisinopril (Prinivil Tab*) 2.5 mg PO DAILY [facility] Last Admin: 01/02/19 07:53 Dose: 2.5 mg Mometasone Furoate/Formoterol Fumar (Dulera 200/5 Mdi*) 2 puff INH BID [facility] Last Admin: 01/02/19 08:05 Dose: 2 puff Oxycodone HCl (Roxycodone Tab*) 5 mg PO Q6H PRN PRN Reason: PAIN - SEVERE Last Admin: 01/01/19 10:00 Dose: 5 mg Paroxetine HCl (Paxil Tab*) 20 mg PO DAILY [facility] Last Admin: 01/02/19 07:53 Dose: 20 mg Pharmacy Profile Note (Lidocaine Patch Remove*) 1 note N/A 2100 [facility] Last Admin: 01/01/19 20:50 Dose: 1 note Propranolol HCl (Inderal Tab*) 10 mg PO BID [facility] Last Admin: 01/02/19 07:54 Dose: 10 mg Tiotropium [place] (Spiriva Respimat 2.5 Mcg) 2 puff INH DAILY [facility] Last Admin: 01/02/19 08:05 Dose: 2 puff Vital Signs - 8 hr 01/02/19 01/02/19 01/02/19 02:54 07:15 08:05 Temperature 97.6 F 97.9 F Pulse Rate 55 62 60 Respiratory 18 16 14 Rate Blood Pressure 124/42 137/57 (mmHg) O2 Sat by Pulse 93 95 95 Oximetry 01/02/19 08:07 Temperature Pulse Rate Respiratory 16 Rate Blood Pressure (mmHg) O2 Sat by Pulse Oximetry Oxygen Devices in Use Now: None Appearance: Frail woman in NAD, very [place] Eyes: No Scleral Icterus, PERRLA Ears/Nose/Mouth/Throat: NL Teeth, Lips, Gums Respiratory: Symmetrical Chest Expansion and Respiratory Effort, Clear to Auscultation Cardiovascular: NL Sounds; No Murmurs; No JVD, RRR Abdominal: NL Sounds; No Tenderness; No Distention, No Hepatosplenomegaly Lymphatic: No Cervical Adenopathy Extremities: No Edema Skin: No Rash or Ulcers Neurological: - - Oriented to self Result Diagrams: 12/31/18 15:24 01/02/19 05:02 Microbiology and Other Data: Microbiology 12/31/18 18:52 Stool Occult Blood (MAYUR) - Final Stool Diagnostic Imaging: MRI Thoracic Spine, Lumbar Spine-Compression fracture Echo Mod to severe Valve area 0.6 Assess/Plan/Problems-Billing Assessment: 88F PMH chronic pain OA, chronic compression fracture, depression, anxiety, HTN , likely underlying dementia who presented with fall and back pain found to have acute on chronic compression fracture as well as some concern of FTT in home - Patient Problems (1) Compression fracture Current Visit: Yes Status: Acute Code(s): AIT6241 - SNOMED Code(s): 344864834 Comment: - T12 Fracture in setting of chronic compression fracture - PT OT - Start calcium/vit d, calcitonin nasal spray, possible brace neurosurg consulted - Pain control with Tylenol standing, PRN low dose Toradol and breakthru low dose Oxy, Lidocaine patch (2) Failure to thrive Current Visit: Yes Status: Acute Code(s): OWF5339 - SNOMED Code(s): 89661729 Comment: - Discussion with daughter (documented below) reveals weight loss over the last 4 to 6 mo, decreased appetite and confusion, likely in the setting of dementia. (3) Aortic stenosis Current Visit: Yes Status: Acute Code(s): I35.0 - NONRHEUMATIC AORTIC (VALVE ) STENOSIS SNOMED Code(s): 75327190 Comment: - Eval with Echo 01/01, mod to severe (4) Dementia Current Visit: Yes Status: Acute Code(s): F03.90 - UNSPECIFIED DEMENTIA WITHOUT BEHAVIORAL DISTURBANCE SNOMED Code(s): 25261065 Comment: - Poor recall, oriented to self, daughter reports ongoing memory issues for > 1 year (5) Chronic kidney disease, stage II (mild) Current Visit: No Status: Acute Priority: Medium Onset Date: 03/17/14 Code(s): N18.2 - CHRONIC KIDNEY DISEASE, STAGE 2 (MILD) SNOMED Code(s): 814419167 Comment: - Appears baseline (6) Anxiety and depression Current Visit: No Status: Chronic Code(s): F41.9 - ANXIETY DISORDER, UNSPECIFIED; F32.9 - MAJOR DEPRESSIVE DISORDER, SINGLE EPISODE, UNSPECIFIED SNOMED Code(s): 928069879 Comment: - Continue Paxil (7) COPD (chronic obstructive pulmonary disease) Current Visit: No Status: Chronic Code(s): J44.9 - CHRONIC OBSTRUCTIVE PULMONARY DISEASE, UNSPECIFIED SNOMED Code(s): 12685629 Comment: - No signs of exacerbation - Hx Asthma - Continue albuterol prn, dulera and spiriva (8) Hypertension Current Visit: No Status: Chronic Code(s): I10 - ESSENTIAL (PRIMARY) HYPERTENSION SNOMED Code(s): 46025578 Comment: - Normotensive (9) DVT prophylaxis Current Visit: No Status: Acute Priority: Medium Onset Date: 03/17/14 Code(s): NWT4343 - SNOMED Code(s): 206682137 Comment: - lovenox (10) Full code status Current Visit: No Status: Acute Code(s): Z78.9 - OTHER SPECIFIED HEALTH STATUS SNOMED Code(s): 032985545 Comment: - Ongoing discussion with daughter Status and Disposition: Currently OBV, may change to inpatient as expect 3 nights, may need rehab pending PT eval Order changes 01/02: None Plan: Await NS need for brace and PT
[2019-01-02] MEDS ORDERED: Influenza VAC *QUAD* 2019-20* 0.5 ML SYRINGE IM ONE (09:00)
[2019-01-02] MEDS: Enoxaparin(*) 30 MG/0.3 ML SYR SUBCUT SCH (21:36)
[2019-01-02] MEDS: Lidocaine Patch REMOVE* 1 NOTE MISC SCH (21:43)
[2019-01-03] MEDS: Acetaminophen TAB* 325 MG PO SCH ×3 (05:53→22:18)
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
[2019-01-03] MEDS: Mometasone/Formoter 200/5 MDI INH SCH ×2 (08:39→19:41)
[2019-01-03] MEDS: SPIRIVA Respimat* (tiotropium) 2.5 mcg/inh Inhaler INH SCH (08:39)
[2019-01-03] MEDS: CALCITONIN ALT NARE SCH (09:50)
[2019-01-03] MEDS: Cholecalciferol TAB* 1000 UNITS PO SCH (09:51)
[2019-01-03] MEDS: Propranolol TAB* 10 MG PO SCH ×2 (09:51→22:18)
[2019-01-03] MEDS: Calcium Carbonate TAB* 1250 MG (CALCIUM 500 MG) PO SCH ×2 (09:51→22:18)
[2019-01-03] MEDS: Ketorolac INJ* 15 MG/ML 1 ML VIAL IV PUSH PRN (09:51)
[2019-01-03] MEDS: PARoxetine HCL TAB* 20 MG PO SCH (09:51)
[2019-01-03] MEDS: Lisinopril TAB* 5 MG PO SCH (09:52)
[2019-01-03] MEDS: Lidocaine PATCH 5%* 1 PATCH TRANSDERM SCH (10:06)
[2019-01-03] MEDS: Enoxaparin(*) 30 MG/0.3 ML SYR SUBCUT SCH (22:19)
[2019-01-03] MEDS: Lidocaine Patch REMOVE* 1 NOTE MISC SCH (22:26)
--- NOTE | 2019-01-04 00:17 | DS ---
CC: Lori Redding NP.* DISCHARGE SUMMARY: DATE OF ADMISSION: 12/31/18 DATE OF DISCHARGE: 01/04/19 PRIMARY CARE PROVIDER: Lori Sen NP DISPOSITION AT THE TIME OF DISCHARGE: Stable, to be discharged to senior care facility for subacute rehab. PRIMARY DIAGNOSIS: Mechanical fall complicated by acute T12 compression fracture in the setting of chronic compression fractures. SECONDARY DIAGNOSES: 1. Dementia. 2. Aortic stenosis. 3. History of chronic compression fractures. 4. Failure to thrive. 5. Chronic kidney disease stage 2. 6. Chronic obstructive pulmonary disease. 7. Anxiety. 8. Depression. 9. Chronic low back pain secondary to compression fractures. 10. Osteopenia versus porosis. 11. Asymptomatic bacteriuria. 12. Distant history of hip fracture on the left. 13. Anemia MEDICATIONS AT THE TIME OF DISCHARGE: 1. Acetaminophen 975 mg p.o. q.8 hours as scheduled. 2. Albuterol 2.5 mg inhaled q.4 hours p.r.n. for shortness of breath. 3. Calcitonin nasal spray 200 units alternating nares daily. 4. Calcium carbonate 1250 mg p.o. b.i.d. 5. Cholecalciferol 1000 units p.o. daily. 6. Fluticasone/salmeterol/Advair 1 puff inhaled b.i.d. 7. Lidocaine patch 5% patch apply to mid back daily and remove q.12 hours. 8. Lisinopril 2.5 mg p.o. daily. 9. Oxycodone 5 mg p.o. q.6 hours p.r.n. for severe pain. 10. Paroxetine 20 mg p.o. daily. 11. Propranolol 10 mg p.o. b.i.d. 12. Albuterol neb inhaled q.4 hours p.r.n. for severe shortness of breath. 13. Tiotropium 1 cap inhaled daily. Medication changes on this admission: 1. Discontinuation of propranolol 20 mg p.o. b.i.d. 2. The addition of oxycodone 5 mg p.o. q.6 hours p.r.n. for a very limited time after this compression fracture, not to exceed 5 days status post discharge. 3. The addition of lidocaine patch. 4. The addition of Calcitonin nasal spray. 5. The addition of scheduled Tylenol 3 times daily from p.r.n. 6. The addition of calcium carbonate. 7. The addition of vitamin D. HISTORY OF PRESENT ILLNESS AND HOSPITAL COURSE: An 88-year-old female with past medical history of cognitive impairment, chronic compression fractures in lumbar spine, hypertension, anxiety and depression who presented to the emergency room from home on 12/31/18 with complaint of fall and back pain. The patient is a poor historian secondary to her dementia at baseline. On interview with the family, she reports falls over the last week and the family, particularly her daughter who lives very close by says that patient has been falling and has had some decline over the last 3 months and in terms of being more forgetful, diminished appetite, weight loss. The daughter reports that the patient called her and said that she had fallen and had back pain. When she went, the house was covered with fleas and the patient was unable to stand that she encouraged her to come by ER. Again, history at time of presentation is limited by the patient who is quite hard of hearing and who has dementia and is oriented to herself. In the emergency room, her vital signs were stable. Brain CT was unremarkable other than chronic ischemic changes. Cervical, thoracic and lumbar spine CTs showed a chronic odontoid fracture and old compression fractures of L2, L3, L4 and L5 and also a new T12 acute compression fracture, which was thought to be the source of her pain. Because of her difficult to control pain as well as safety in the home, the patient was admitted under observation status and her hospital course by problem is as follows: 1. Acute T12 compression fracture with poorly controlled pain: Neurosurgery saw patient who ordered MRI, confirmed T12 fracture and recommended for TSLO brace. For the first 2 days the patient was in a [place] collar, although the patient was ultimately cleared. She was started on calcitonin and vitamin D and calcium for osteoporosis which contributed to her ongoing compression fractures. She will need subacute rehab in order to continue to complete her activities of daily living with this pain. For pain control, she was optimized on Tylenol around the clock, lidocaine patch, calcitonin nasal spray and was offered oxycodone which she took very sparingly and we would recommend not continuing past 5 days status post discharge. 2. Falls. The patient reported multiple falls. PT and OT have left their reports and recommended subacute rehab, most likely this is secondary to underlying failure to thrive and possible osteoarthritis and in need of gait training. The patient did have a heart murmur on her hospitalization and an echocardiogram was done which showed moderate to severe aortic stenosis, although she has no prodrome into the falls and likely this is not contributory and her falls are mechanical in nature. 3. Depression and anxiety. Her home Paxil was continued. 4. Cognitive impairment. TSH, B12 and folate were done which were unremarkable. Collateral from her daughter reveals that the patient has been suffering from dementia. She is oriented to herself at baseline, although pleasant, quite hard of hearing. Goals of care discussion was held with the family about worsening dementia diagnosis and safety in the home, they report that they would look into long-term care and optimizing her home services. She is currently with meals on wheels, has [employer] aide that cleans the house and did have home care nursing twice a week, although this was recently discontinued. They did reveal that she is DNR/DNI and her MOLST is completed. 5. Hypertension. Her home lisinopril and propranolol were continued. Propranolol dose was lowered. 6. Chronic obstructive pulmonary disease. She is on home inhalers. She has no evidence of a flare and her home inhalers will be continued. 7. CKD stage 2. Initially thought this is acute injury. But looking back, creatinine has been elevated for some time with a baseline creatinine of 1.2. 8. Anemia: Mild normocytic anemia with Hgb 11 on day of admission, FOBT was done which was positive though patient had no abdominal pain or signs or symptoms of active GIB, her Hgb on day of d/c is 9.5, which is likely dilutional from fluids. This could represent a slow bleed though discussion with patient and family about merits of a non urgent colo can be done as outpatient and depending on her goals of care. 9. Functional status. The patient on the day of discharge is ambulating with assistance, can feed herself and will be discharged to subacute rehab for further acute rehabilitation while family will sorts out need for long-term care versus home with increased services. They are informed of patient's diagnosis of dementia as well as enlightened to concerning findings of failure to thrive given flea infestation in the home (Social Work was involved and ensured that the house was decontaminated in her absence). She is stable for discharge to subacute rehab. Family was updated on this plan of care. LABS AND STUDIES DONE DURING THIS HOSPITALIZATION: Labs: CBC on 12/31/18 showed white blood cell count of 9.5, hemoglobin 11, hematocrit 32, platelets 294, Repeat Hgb on day of d/c 9.5. BMP on 01/02/19: Sodium 136, potassium 3.9 , chloride 104, carbon dioxide 27, anion gap 5, BUN 1.14. LFTs unremarkable. Urinalysis showed 2+ white blood cells, 3+ red blood cells. Reflex culture showed strep group C and 25,000 CFU. The patient is asymptomatic consistent with asymptomatic bacteria. Fecal occult blood on 12/31/18 was incidentally positive. IMAGING: Imaging done includes lumbar, cervical and thoracic spine CT which showed acute T12 compression fracture and chronic L2, L3, L4 and L5 compression fractures, a chronic type 2 odontoid fracture, significant osteopenia and degenerative disease. A noncontrast CT showed chronic ischemic changes with no acute intracranial pathology. A lumbar, thoracic and cervical spine MRI were done, which showed again chronic type 2 odontoid fracture, DJD, central disc protrusion at C4- C5, multilevel neural foraminal narrowing at multiple levels, thoracic spine showing acute T12 fracture with no retropulsion. Also, an anterior wedge compression fracture at T11. Also, paravertebral soft tissue edema of the spinous processes. Lumbar spine shows as above findings, but also with further compression fracture at L2. Transthoracic echocardiogram done on 01/01/19 shows preserved ejection fraction , moderate to severe aortic stenosis with a mean diastolic gradient of 22 and the valve area of 0.6. EKG showed normal sinus rhythm with no signs of ischemia. CONSULTANTS DURING THIS HOSPITALIZATION: Included Neurosurgery, PT and OT. ITEMS TO FOLLOW UP ON STATUS POST DISCHARGE: 1. Compression fracture in the setting of likely osteoporosis. The patient should have a DEXA scan. If this is within her goals of care, pain control and conservative management is to be done. She will continue with subacute rehab. 2. Dementia with evidence of recent failure to thrive. Goals of care discussion was had with the family who made the patient DNR/DNI, although they did not elect to have definitive discussions about her home and living situation. Her daughter is her healthcare proxy. She has evidence of weight loss and I suspect she is entering into a more advance stage of dementia, alternatively there could be an underlying process driving weight loss, though this can be worked up as an outpatient. 3. Asymptomatic bacteriuria. The patient is without symptoms. If she does start to have symptoms, could consider treating for UTI. 4. Positive fecal occult blood and normocytic anemia. This was done in the setting of mild new normocytic anemia with hemoglobin 9.5. She had no evidence of further bleeding during this hospitalization. This could be followed up as an outpatient as her goals of care allow. TIME SPENT: Forty-five minutes was spent on planning of this discharge, with over half of that spent directly at the bedside of the patient providing direct patient care, If there are any questions about the care of the patient during this hospitalization, please do not hesitate to reach out and contact myself on [phone] directly. Plan of care discussed with the patient's family who agree with subacute rehab while we continue to have ongoing discussion with primary care about overall safety in her home. [id number]/CPS #: [id number] KRISTINE
[2019-01-04 05:36] LABS: Hematocrit 27 % (35-47); Hemoglobin 9.5 g/dL (12.0-16.0)
[2019-01-04] MEDS: Acetaminophen TAB* 325 MG PO SCH (05:36)
--- NOTE | 2019-01-04 07:06 | PN ---
Subjective Date of Service: 01/04/19 Interval History: HD #5 on 01/04 88F PMH chronic pain OA, chronic compression fracture, depression, anxiety, HTN , underlying dementia who presented with fall and back pain found to have acute on chronic compression fracture as well as e/o FTT in home. Overnight no acute events, VSS, bed offer at [facility], awaiting auth Labs: Stable high Cr, Hgb drift to 9.5, FOBT + but no sign of king abdominal pain or concern for bleed, can be FU on d/c Seen this AM, sleeping, easily arouses but again [place], no complaints, pleasant, still photographer around back but does report improvement. Oriented to self. Objective Active Medications: Acetaminophen (Tylenol Tab*) 975 mg PO Q8H [facility] Last Admin: 01/04/19 05:36 Dose: 975 mg Albuterol (Ventolin 2.5 Mg/3 Ml Neb.Darleen*) 2.5 mg INH Q4H PRN PRN Reason: SHORTNESS OF BREATH Calcitonin [place] (Fortical(Nr)) 200 units ALT NARE DAILY [facility]; Protocol Last Admin: 01/03/19 09:50 Dose: 200 units Calcium Carbonate (Calcium Carbonate Tab*) 1,250 mg PO BID [facility] Last Admin: 01/03/19 22:18 Dose: 1,250 mg Cholecalciferol (Vitamin D Tab*) 1,000 units PO DAILY [facility] Last Admin: 01/03/19 09:51 Dose: 1,000 units Enoxaparin Sodium (Lovenox(*)) 30 mg SUBCUT Q24H [facility] Last Admin: 01/03/19 22:19 Dose: 30 mg Ketorolac Tromethamine (Toradol Inj*) 15 mg IV PUSH Q6H PRN PRN Reason: PAIN - MODERATE Last Admin: 01/03/19 09:51 Dose: 15 mg Lidocaine (Lidoderm 5% Patch*) 1 patch TRANSDERM DAILY [facility] Last Admin: 01/03/19 10:06 Dose: 1 patch Lisinopril (Prinivil Tab*) 2.5 mg PO DAILY [facility] Last Admin: 01/03/19 09:52 Dose: 2.5 mg Mometasone Furoate/Formoterol Fumar (Dulera 200/5 Mdi*) 2 puff INH BID [facility] Last Admin: 01/03/19 19:41 Dose: 2 puff Oxycodone HCl (Roxycodone Tab*) 5 mg PO Q6H PRN PRN Reason: PAIN - SEVERE Last Admin: 01/01/19 10:00 Dose: 5 mg Paroxetine HCl (Paxil Tab*) 20 mg PO DAILY [facility] Last Admin: 01/03/19 09:51 Dose: 20 mg Pharmacy Profile Note (Lidocaine Patch Remove*) 1 note N/A 2100 [facility] Last Admin: 01/03/19 22:26 Dose: 1 note Propranolol HCl (Inderal Tab*) 10 mg PO BID [facility] Last Admin: 01/03/19 22:18 Dose: 10 mg Tiotropium [place] (Spiriva Respimat 2.5 Mcg) 2 puff INH DAILY [facility] Last Admin: 01/03/19 08:39 Dose: 2 puff Vital Signs - 8 hr 01/04/19 03:15 Temperature 98.0 F Pulse Rate 57 Respiratory 18 Rate Blood Pressure 144/53 (mmHg) O2 Sat by Pulse 94 Oximetry Oxygen Devices in Use Now: None Appearance: Frail woman in torso brace Eyes: No Scleral Icterus, PERRLA Ears/Nose/Mouth/Throat: NL Teeth, Lips, Gums Neck: NL Appearance and Movements; NL JVP, Trachea Midline Respiratory: Symmetrical Chest Expansion and Respiratory Effort, Clear to Auscultation Cardiovascular: RRR, - - JEFFRY Abdominal: NL Sounds; No Tenderness; No Distention, No Hepatosplenomegaly Lymphatic: No Cervical Adenopathy, No Axillary Adenopathy Skin: No Rash or Ulcers Neurological: - - oreinted to self Result Diagrams: 01/04/19 05:03 01/02/19 05:02 Microbiology and Other Data: Microbiology 12/31/18 18:52 Stool Occult Blood (MAYUR) - Final Stool Diagnostic Imaging: MRI Thoracic Spine, Lumbar Spine-Compression fracture Echo Mod to severe Valve area 0.6 Assess/Plan/Problems-Billing Assessment: 88F PMH chronic pain OA, chronic compression fracture, depression, anxiety, HTN , likely underlying dementia who presented with fall and back pain found to have acute on chronic compression fracture as well as some concern of FTT in home - Patient Problems (1) Compression fracture Current Visit: Yes Status: Acute Code(s): EIE3303 - SNOMED Code(s): 366862483 Comment: - T12 Fracture in setting of chronic compression fracture - PT OT, Brace ordered - Start calcium/vit d, calcitonin nasal spray, possible brace neurosurg consulted recommending brace and rehab - Pain control with Tylenol standing, PRN low dose Toradol and breakthru low dose Oxy, Lidocaine patch (2) Failure to thrive Current Visit: Yes Status: Acute Code(s): [id number] - SNOMED Code(s): 37104142 Comment: - Discussion with daughter (documented below) reveals weight loss over the last 4 to 6 mo, decreased appetite and confusion, likely in the setting of dementia. (3) Aortic stenosis Current Visit: Yes Status: Acute Code(s): I35.0 - NONRHEUMATIC AORTIC (VALVE ) STENOSIS SNOMED Code(s): 44589889 Comment: - Eval with Echo 01/01, mod to severe, largely asymptomatic (4) Dementia Current Visit: Yes Status: Acute Code(s): F03.90 - UNSPECIFIED DEMENTIA WITHOUT BEHAVIORAL DISTURBANCE SNOMED Code(s): 07397100 Comment: - Poor recall, oriented to self, daughter reports ongoing memory issues for > 1 year (5) Chronic kidney disease, stage II (mild) Current Visit: No Status: Acute Priority: Medium Onset Date: 03/17/14 Code(s): N18.2 - CHRONIC KIDNEY DISEASE, STAGE 2 (MILD) SNOMED Code(s): 341959464 Comment: - Appears baseline (6) Anxiety and depression Current Visit: No Status: Chronic Code(s): F41.9 - ANXIETY DISORDER, UNSPECIFIED; F32.9 - MAJOR DEPRESSIVE DISORDER, SINGLE EPISODE, UNSPECIFIED SNOMED Code(s): 088993458 Comment: - Continue Paxil (7) COPD (chronic obstructive pulmonary disease) Current Visit: No Status: Chronic Code(s): J44.9 - CHRONIC OBSTRUCTIVE PULMONARY DISEASE, UNSPECIFIED SNOMED Code(s): 86429101 Comment: - No signs of exacerbation - Hx Asthma - Continue albuterol prn, dulera and spiriva (8) Hypertension Current Visit: No Status: Chronic Code(s): I10 - ESSENTIAL (PRIMARY) HYPERTENSION SNOMED Code(s): 66515060 Comment: - Normotensive (9) Anemia Current Visit: Yes Status: Acute Code(s): D64.9 - ANEMIA, UNSPECIFIED SNOMED Code(s): 505155068 Comment: - Normocytic anemia, + guiac, no e/o hemodynamic instability, can FU with PCP for recheck Hgb (10) DVT prophylaxis Current Visit: No Status: Acute Priority: Medium Onset Date: 03/17/14 Code(s): SLB0131 - SNOMED Code(s): 196084476 Comment: - lovenox (11) DNR (do not resuscitate) Current Visit: Yes Status: Acute Comment: - Updated MOLST Status and Disposition: Anticipate d/c today
[2019-01-04] MEDS: SPIRIVA Respimat* (tiotropium) 2.5 mcg/inh Inhaler INH SCH (07:48)
[2019-01-04] MEDS: Mometasone/Formoter 200/5 MDI INH SCH (07:48)
[2019-01-04 08:02] VITALS: BP 149/52
[2019-01-04] MEDS: CALCITONIN ALT NARE SCH (08:55)
[2019-01-04] MEDS: Lidocaine PATCH 5%* 1 PATCH TRANSDERM SCH (08:56)
[2019-01-04] MEDS: Cholecalciferol TAB* 1000 UNITS PO SCH (08:56)
[2019-01-04] MEDS: Calcium Carbonate TAB* 1250 MG (CALCIUM 500 MG) PO SCH (08:56)
[2019-01-04] MEDS: PARoxetine HCL TAB* 20 MG PO SCH (08:56)
[2019-01-04] MEDS: Propranolol TAB* 10 MG PO SCH (08:56)
[2019-01-04] MEDS: Lisinopril TAB* 5 MG PO SCH (08:57)
[2019-01-04] MEDS: oxyCODONE TAB* 5 MG TAB PO PRN (11:55)
== END 2019-01-04 12:10 | DRG 552 ==
LOC: ED 13:58 → MED 18:33 → OBSVTOIN 01-03 17:00
PROVIDERS: ADMIT Internal Medicine; ATTEND Internal Medicine
PROC: 2W35X3Z Immobilization of Back using Brace (ICD-10-PCS; principal; 2019-01-03)
DX: S22.089A Unspecified fracture of T11-T12 vertebra, initial encounter for closed fracture (principal); K92.1 Melena; W18.30XA Fall on same level, unspecified, initial encounter; F03.90 Unspecified dementia, unspecified severity, without behavioral disturbance, psychotic disturbance, mood disturbance, and anxiety; I35.0 Nonrheumatic aortic (valve) stenosis; J44.9 Chronic obstructive pulmonary disease, unspecified; R62.7 Adult failure to thrive; I12.9 Hypertensive chronic kidney disease with stage 1 through stage 4 chronic kidney disease, or unspecified chronic kidney disease; N18.2 Chronic kidney disease, stage 2 (mild); F41.9 Anxiety disorder, unspecified; F32.9 Major depressive disorder, single episode, unspecified; Z66 Do not resuscitate; M85.88 Other specified disorders of bone density and structure, other site; R82.71 Bacteriuria; D64.9 Anemia, unspecified; M48.56XD Collapsed vertebra, not elsewhere classified, lumbar region, subsequent encounter for fracture with routine healing; M54.5 Low back pain; M19.90 Unspecified osteoarthritis, unspecified site; B88.8 Other specified infestations; J45.909 Unspecified asthma, uncomplicated; M51.36 Other intervertebral disc degeneration, lumbar region; M81.0 Age-related osteoporosis without current pathological fracture; Z96.642 Presence of left artificial hip joint; Y92.009 Unspecified place in unspecified non-institutional (private) residence as the place of occurrence of the external cause; Z68.20 Body mass index [BMI] 20.0-20.9, adult; Z79.1 Long term (current) use of non-steroidal anti-inflammatories (NSAID); Z79.51 Long term (current) use of inhaled steroids; Z79.899 Other long term (current) drug therapy; Z88.2 Allergy status to sulfonamides; Z82.49 Family history of ischemic heart disease and other diseases of the circulatory system
CPT/HCPCS: 36415; 70450; 72100; 72125; 72128; 72131; 72141; 72146; 72148; 80048; 80053; 81003; 81015; 82270; 82607; 82746; 83605; 83735; 84443; 84484; 85014; 85018; 85025; 87077; 87086; 87184; 87186; 90686; 93005; 93306; 94640; 99284; A9270-GY; G0378; G8978-GP-CJ; G8979-GP-CI; G8987-GO-CJ; G8988-GO-CI; J1650; J1885; J3535

== ENCOUNTER 2019-04-20 14:26 | Inpatient (IN) | payer MEDICARE ==
--- NOTE | 2019-04-20 14:48 | ED ---
Back Pain - HPI Summary HPI Summary: 88 y/o female presented to [facility] by [facility] after being found on her garage floor after a fall. She was last seen yesterday, 04/19/19 and it is unknown when she fell. She is experiencing pain in her mid back that gets worse when sitting up. She is confused which is not normal but is oriented to person, place, and time. EMS notes that the patient had episode of emesis. - History of Current Complaint Chief Complaint: EDFall Stated Complaint: FALL- LOW TEMP PER EMS Time Seen by Provider: 04/20/19 14:35 Hx Obtained From: Patient, EMS Onset/Duration: Still Present Onset/Duration: Still Present Back Pain Location: Is Discrete @ - mid back Pain Intensity: 0 Pain Scale Used: 0-10 Numeric Aggravating Symptom(s): Other - sitting up Associated Signs And Symptoms: Positive: Other - vomiting, hypothermia, fall - Allergies/Home Medications Allergies/Adverse Reactions: Allergies Allergy/AdvReac Type Severity Reaction Status Date / Time Sulfa (Sulfonamide Allergy Rash Verified 12/31/18 19:04 Antibiotics) PMH/Surg Hx/FS Hx/Imm Hx Endocrine/Hematology History: Denies: Hx Anticoagulant Therapy, Hx Diabetes, Hx Thyroid Disease, Hx Unexplained Bleeding Cardiovascular History: Reports: Hx Hypertension Denies: Hx Pacemaker/ICD Respiratory History: Reports: Hx Asthma Denies: Hx Chronic Obstructive Pulmonary Disease (COPD) History: Denies: Hx Renal Disease Musculoskeletal History: Reports: Hx Arthritis, Other Musculoskeletal History - pelvic and hip fracture, arm fx Denies: Hx Rheumatoid Arthritis, Hx Osteoporosis Sensory History: Reports: Hx Contacts or Glasses - Not with pt. at this time; at pt. home, Hx Hearing Aid - BOTH, not currently in use, Hx Hearing Problem - [facility] Opthamlomology History: Reports: Hx Contacts or Glasses - Not with pt. at this time; at pt. 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 Lt HIP REPAIR - FX- 02/2014. CATARACT. CHOLECYSTECTOMY - Immunization History Date of Tetanus Vaccine: 05/22/12 Date of Influenza Vaccine: 05/24/12 Infectious Disease History: No Infectious Disease History: Denies: Hx Hepatitis, Hx Human Immunodeficiency Virus (HIV), Hx of Known/ Suspected MRSA, Traveled Outside the [place] in Last 30 Days - Family History Known Family History: Positive: None Negative: Other - NEG: breast CA Family History: Denies FHx of breast cancer. - Social History Alcohol Use: None Hx Substance Use: No Substance Use Type: Reports: None Smoking Status (MU): Never Smoked Tobacco Have You Smoked in the Last Year: No Review of Systems Positive: Other - fall. Negative: Fever - vitals show temp at 98.5F Positive: Vomiting Positive: Other - mid back pain All Other Systems Reviewed And Are Negative: Yes Physical Exam - Summary Physical Exam Summary: Appearance: The patient is well-nourished in no acute distress and in no acute pain. Skin: The skin is warm and dry, and skin color reflects adequate perfusion. HEENT: The head is normocephalic and atraumatic. The pupils are equal and reactive. The conjunctivae are clear and without drainage. Nares are patent and without drainage. Mouth reveals moist mucous membranes, and the throat is without erythema and exudate. The external ears are intact. The ear canals are patent and without drainage. The tympanic membranes are intact. Neck: The neck is supple with full range of motion and non-tender. There are no carotid bruits. There is no neck vein distension. Respiratory: Chest is non-tender. Patient has crackles in the upper lobe of the left lung. Cardiovascular: Heart is regular rate and rhythm. There is a harsh systolic ejection murmur but no rubs auscultated. There is no peripheral edema and pulses are symmetrical and equal. Abdomen: The abdomen is soft and non-tender. There are normal bowel sounds heard in all four quadrants and there is no organomegaly palpated. Musculoskeletal: There is no back tenderness noted. Extremities are non-tender with full range of motion. There is good capillary refill. There is no peripheral edema or calf tenderness elicited. Neurological: Patient is alert and oriented to person, place and time. The patient has symmetrical motor strength in all four extremities. Cranial nerves are grossly intact. Deep tendon reflexes are symmetrical and equal in all four extremities. Psychiatric: The patient has an appropriate affect and does not exhibit any anxiety or depression. Triage Information Reviewed: Yes Vital Signs On Initial Exam: Initial Vitals Temp Pulse Resp BP Pulse Ox 98.5 F 82 18 164/81 99 04/20/19 14:39 04/20/19 14:39 04/20/19 14:39 04/20/19 14:39 04/20/19 14:39 Vital Signs Reviewed: Yes Procedures - Sedation Patient Received Moderate/Deep Sedation with Procedure: No Diagnostics - Vital Signs Vital Signs Temp Pulse Resp BP Pulse Ox 04/20/19 14:39 98.5 F 82 18 164/81 99 - Laboratory Result Diagrams: 04/21/19 06:01 04/21/19 06:01 Lab Statement: Any lab studies that have been ordered have been reviewed, and results considered in the medical decision making process. - CT CT CHEST CT Interpretation Completed By: Radiologist Summary of CT Findings: CT CHEST IMPRESSION: 1. THERE IS MILD DEPENDENT BILATERAL LOWER LOBE SUBSEGMENTAL ATELECTASIS. THE LUNGS ARE. OTHERWISE CLEAR. THERE IS NO EVIDENCE FOR PNEUMOTHORAX OR PLEURAL EFFUSION. 2. THERE IS A NEW MILD COMPRESSION FRACTURE OF THE INFERIOR ENDPLATE OF THE L1 VERTEBRAL. BODY. THERE ARE ADDITIONAL CHRONIC DORSAL AND LUMBAR VERTEBRAL COMPRESSION FRACTURES WHICH. ARE UNCHANGED. THIS REPORT WAS REVIEWED BY ED PHYSICIAN. THORACIC SPINE CT CT Interpretation Completed By: Radiologist Summary of CT Findings: CT THORACIC SPINE IMPRESSION: 1. NEW MILD COMPRESSION FRACTURE OF THE INFERIOR ENDPLATE OF THE L1 VERTEBRAL BODY. 2. CHRONIC COMPRESSION FRACTURES OF THE T11 AND T12 VERTEBRAL BODIES, UNCHANGED. THIS REPORT WAS REVIEWED BY ED PHYSICIAN. - EKG 1502 Cardiac Rate: NL - 69bpm EKG Rhythm: Sinus Rhythm Summary of EKG Findings: EKG showed normal sinus rhythm, with a rate of 69bpm. EKG was reviewed and interpreted by the ED physician. Back Pain Course/Dx - Course Course Of Treatment: Ms. Pedroza was found to have an elevated CPK and troponin. She was given fluids here in the department. EKG showed no acute ischemic changes. I asked the hospitalist to evaluate her for admission for further workup - Diagnoses Provider Diagnoses: Syncope - Provider Notifications Discussed Care Of Patient With: Berto Murillo Time Discussed With Above Provider: 17:33 Instructed by Provider To: Other - Patient's case was discussed with Dr. Murillo , Dr. Murillo accepts for admission. - Critical Care Time Critical Care Time: 30-74 min Discharge ED - Sign-Out/Discharge Documenting (check all that apply): Patient Departure - admit - Discharge Plan Condition: Fair Disposition: ADMITTED TO [facility] - Billing Disposition and Condition Condition: FAIR Disposition: Admitted to [facility] - Attestation Statements Document Initiated by Chucho: Yes Documenting Scribe: AD PABON Provider For Whom Chucho is Documenting (Include Credential): AYSHA SR MD Scribe Attestation: IAD, scribed for AYSHA SR MD on 04/22/19 at 1519. Scribe Documentation Reviewed: Yes Provider Attestation: The documentation as recorded by the AD durán accurately reflects the service I personally performed and the decisions made by me, AYSHA SR MD Status of Scribe Document: Viewed
[2019-04-20 15:08] LABS: ABS Lymphocytes 0.4 10^3/ul (1.0-4.8); ABS Monocytes 0.6 10^3/ul (0-0.8); ABS Neutrophils 8.7 10^3/ul (1.5-7.7); Hematocrit 33 % (35-47); Hemoglobin 11.4 g/dL (12.0-16.0); Mean Corpuscular HGB Conc 35 g/dL (31-36); Mean Corpuscular Hemoglobin 31 pg (27-31); Mean Corpuscular Volume 87 fL (80-97); Mean Platelet Volume 7.2 fL (7.4-10.4); Platelet Count 288 10^3/uL (150-450); Red Blood Count 3.72 10^6 /uL (3.70-4.87); Red Cell Distribution Width 16 % (10-15); White Blood Count 9.7 10^3/uL (3.5-10.8)
[2019-04-20 15:25] LABS: ALT 12 U/L (7-52); AST 30 U/L (13-39); Albumin/Globulin Ratio 1.5 (1-3); Alkaline Phosphatase 54 U/L (34-104); Anion Gap 7 mmol/L (2-11); BUN/Creatinine Ratio 22.4 (8-20); Blood Urea Nitrogen 15 mg/dL (6-24); CO2 Carbon Dioxide 30 mmol/L (22-32); Calcium 9.3 mg/dL (8.6-10.3); Chloride 102 mmol/L (101-111); Creatine Kinase 1004 U/L (10-223); EGFR African American 100.5 (>60); EGFR Non-African American 83.1 (>60); Globulin 2.6 g/dL (2-4); Glucose 141 mg/dL (70-100); Magnesium 1.6 mg/dL (1.9-2.7); Potassium 3.8 mmol/L (3.5-5.0); Sodium 139 mmol/L (135-145); Total Protein 6.6 g/dL (6.4-8.9)
[2019-04-20 15:31] LABS: Troponin I 0.36 ng/mL (<0.03)
[2019-04-20] MEDS ORDERED: NS 0.9% 1000 ML** 1,000 ML IV SCH ×2 (15:45→18:45)
[2019-04-20 16:12] LABS: TSH (Thyroid Stimulating Horm) 0.27 mcIU/mL (0.34-5.60)
[2019-04-20] MEDS ORDERED: Albuterol 2.5 MG/3 ML NEB.SOL* (0.083%) INH PRN (18:25)
[2019-04-20] MEDS ORDERED: Acetaminophen TAB* 325 MG PO PRN (18:25)
[2019-04-20 18:26] LABS: Free T4 0.85 ng/dL (0.61-1.12)
[2019-04-20] MEDS ORDERED: Ondansetron INJ* 2 MG/ML VIAL IV PRN (18:26)
[2019-04-20 18:39] LABS: Urine Appearance Cloudy; Urine Bilirubin Negative (Negative); Urine Blood 2+ (Negative); Urine Color Yellow; Urine Glucose Negative (Negative); Urine Ketones Trace (Negative); Urine Nitrite Negative (Negative); Urine Protein 2+(100 mg/dL) (Negative); Urine Specific Gravity 1.021 (1.010-1.030); Urine Urobilinogen Negative (Negative)
[2019-04-20 18:42] LABS: Urine Bacteria 1+ (Absent); Urine Red Blood Cell 2+(6-10/hpf) (Absent); Urine Squamous Epithelial Cell Present (Absent); Urine White Blood Cell 3+(>20/hpf) (Absent)
[2019-04-20 18:44] LABS: Creatine Kinase 929 U/L (10-223)
[2019-04-20 18:51] LABS: Troponin I 0.53 ng/mL (<0.03)
--- NOTE | 2019-04-20 20:22 | HP ---
CC: Lori Redding NP* ADMISSION HISTORY AND PHYSICAL: DATE OF ADMISSION: 04/20/19 PRIMARY CARE PROVIDER: Lori Redding NP HEALTHCARE PROXY: Dania Umaña, her daughter. CODE STATUS: Full, discussed with Dania. SOURCE OF INFORMATION: History obtained from interview with the patient's healthcare proxy, ER staff, review of past medical records. RELIABILITY: Good. The patient is unable to contribute any of medical history. CHIEF COMPLAINT: Found down. HISTORY OF PRESENT ILLNESS: This is an 88-year-old female, past medical history includes dementia, last hospital stay at [facility] in December 2018 with falls and a T12 fracture noted at that time to be declining for the 3 months prior to that admission with weight loss, decreased p.o., generalized failure to thrive, was discharged to [facility] where she stayed in for about a month according to daughter after which she was discharged to home where she lives alone, ambulates with a walker. Medication reconciliation with the patient's pharmacy indicate she last picked up her medications in January. The patient's daughter talks to her approximately every other day and sees her every other day. She reports that she is still losing weight, although thinks she may be eating okay per the patient's report. She was last seen on , 2 days prior to presentation and has had no recent complaints, although the daughter cannot be sure that she has not had fevers, chills, night sweats or other systemic symptoms. This afternoon she was found down, lying on the floor in the garage on a concrete floor. She noted that she was acting "out of it" as well as "disoriented." The patient's daughter reports that the patient kept apologizing to her. She notes that she has a chronic cough that has been present since prior to the last hospital stay, has not been increased recently. No other history able to obtain from the patient's daughter or patient. PAST MEDICAL HISTORY: Includes osteopenia versus osteoarthritis, anxiety, depression, hypertension, asthma, COPD, history of compression fractures, chronic lower back pain, dementia, history of odontoid fracture, moderate to severe aortic stenosis, CKD, history of left total hip and hysterectomy. MEDICATIONS: As indicated above, the patient has not picked up her medications from the pharmacy since January. Home medications though are as below: 1. Paxil 20 mg daily. 2. Lisinopril 2.5 mg daily. 3. Lidocaine 5% one patch transdermally daily. 4. Advair 500/50 one puff twice daily. 5. Cholecalciferol 1000 units daily. 6. Calcium carbonate 1250 mg twice daily. 7. Calcitonin nasally 200 units alternating nares daily. 8. Albuterol 13.4 g inhaled daily. 9. Albuterol nebulizer 2.5 mg inhaled every 4 hours as needed for shortness of breath. 10. Acetaminophen 975 mg every 8 hours. 11. Oxycodone 5 mg every 6 hours as needed for pain. 12. Spiriva 1 cap inhaled daily. 13. Propranolol 10 mg twice daily. ALLERGIES: SULFA. FAMILY HISTORY: Significant for CAD, otherwise unable to obtain from the patient. SOCIAL HISTORY: She is retired from [employer] No tobacco, alcohol, or illicits. She lives alone and ambulates with a walker. Her daughter is her healthcare proxy. REVIEW OF SYSTEMS: Largely unable to obtain as indicated above. PHYSICAL EXAMINATION GENERAL: Elderly woman, lying 20 degrees in bed. VITAL SIGNS: In the emergency room, presenting temperature 98.5, blood pressure 147/69, heart rate 71, respiratory rate is 19, she is 99% on 2 L. HEENT: Her oropharynx is clear. She does have moist mucous membranes. Her sclerae are anicteric. LUNGS: Her lungs have rales in the left base. HEART: Regular. She has a 3/6 high-pitched systolic ejection murmur, loudest in the right upper sternal border. ABDOMEN: Soft, nontender, nondistended. Positive bowel sounds. EXTREMITIES: Warm and well perfused without clubbing, cyanosis or edema. NEUROLOGIC: She is alert and oriented x0. She tries to mumble her name, but unable to say her name. She was talking with her daughter earlier as well as the nurse, who do not think this represents dysarthria or aphasia rather. She moves all extremities, but does not follow commands. She has intention tremor when lifting her hands. Shuts her eyes tightly to avoid their inspection. DIAGNOSTIC STUDIES/LAB DATA: Labs reviewed. CK 1004, troponin 0.36, TSH is 0.27, hemoglobin 11.4, white blood cell count 9.7, platelets 288. Data reviewed. EKG: Normal sinus rhythm, left axis, poor R-wave progression, no ST or T-wave changes, prolonged QTc 496. Thoracic spine CT, new mild compression fracture of the inferior endplate of the L1 vertebral body, chronic compression fractures of T11 and T12 vertebral bodies unchanged. CT chest, impression: There is mild dependent bilateral lower lobe subsegmental atelectasis. The lungs are otherwise clear. There is new mild compression fracture of the inferior endplate of L1 vertebral body. ASSESSMENT AND PLAN: This is an 88-year-old female, recent history of failure to thrive with recurrent falls, resulting in recent thoracic compression fractures and stay at [facility], now returning after being found down in her home. 1. Fall, unclear etiology. The patient is more confused. It is unclear how long she was down in her garage; however, she was euthermic on presentation, suggesting she was not down for multiple days enough to cause hypothermia. In addition, her CK is 1000. Multiple etiologies that can contribute to her fall including past history of multiple falls and gait instability. We will check CT head at this point especially in the setting of encephalopathy. Elevated troponins to be discussed further below as ACS contributing and/or infection. Urine is being collected now. Straight cath. 2. L1 fracture. PT/OT. 3. Elevated troponin. The patient does have moderate to severe aortic stenosis , may indicate demand ischemia in the setting of fall and being down. However, ACS etiology of aforementioned falls is still possible. EKG is not ischemic. Repeat troponins until they downtrend. This patient would be an unlikely candidate for cardiac intervention as she does not take her medications and would not take antiplatelet therapy. 4. Hypertension. Continue lisinopril and propranolol. 5. Elevated TSH. Check free T3 and free T4 which are pending. 6. Encephalopathy - more confused at this point, unclear etiology. Metabolic in the setting of urinary tract infection is certainly possible as well as other infections. Additionally, she has been down. The patient at baseline does have dementia, although appears to be different than her baseline after discussion with her daughter. Checking CT head noncontrast now. We will treat the patient with conservative hydration and reassess in the morning. 7. QTc prolongation 495. Hold QTc prolonging agents. 8. The patient does have fleas, mostly removed in the emergency room; however, caution when handling patient. 9. Rhabdomyolysis. CK elevated to 1004, not at a dangerous level for the patient's kidneys. We will stop fluid now. Repeat CK now. If stable or downtrending, repeat in the morning in the setting of moderate to severe aortic stenosis. 10. DVT prophylaxis: Lovenox after CT head. 11. Code status is full. [id number]/CPS #: [id number] MTDD
[2019-04-20] MEDS ORDERED: Clopidogrel TAB* 300 MG PO ONE ×2 (20:24→23:00)
[2019-04-20] MEDS ORDERED: Enoxaparin(*) 40 MG/0.4 ML SYR SUBCUT SCH (22:00)
[2019-04-20] MEDS: Enoxaparin(*) 60 MG/0.6 ML SYR SUBCUT SCH (22:53)
[2019-04-20] MEDS: Calcium Carbonate TAB* 1250 MG (CALCIUM 500 MG) PO SCH (22:54)
[2019-04-20] MEDS: Aspirin 81 mg CHEW TAB* 81 MG TAB.CHEW PO SCH (22:58)
[2019-04-21 06:19] LABS: ABS Lymphocytes 1.5 10^3/ul (1.0-4.8); ABS Monocytes 0.8 10^3/ul (0-0.8); ABS Neutrophils 7.9 10^3/ul (1.5-7.7); Eosinophil % 0.2 %; Hematocrit 28 % (35-47); Hemoglobin 9.8 g/dL (12.0-16.0); Lymphocyte % 14.9 %; Mean Corpuscular HGB Conc 35 g/dL (31-36); Mean Corpuscular Hemoglobin 31 pg (27-31); Mean Corpuscular Volume 89 fL (80-97); Mean Platelet Volume 7.5 fL (7.4-10.4); Platelet Count 254 10^3/uL (150-450); Red Cell Distribution Width 16 % (10-15); White Blood Count 10.2 10^3/uL (3.5-10.8)
[2019-04-21] MEDS: Mometasone/Formoter 200/5 MDI INH SCH ×3 (06:45→20:53)
[2019-04-21 06:47] LABS: BUN/Creatinine Ratio 20.5 (8-20); Calcium 9.1 mg/dL (8.6-10.3); EGFR African American 78.5 (>60); EGFR Non-African American 64.9 (>60); Magnesium 1.6 mg/dL (1.9-2.7); Potassium 3.9 mmol/L (3.5-5.0)
[2019-04-21] MEDS: SPIRIVA Respimat* (tiotropium) 2.5 mcg/inh Inhaler INH SCH (07:44)
[2019-04-21 07:45] LABS: Troponin I 0.43 ng/mL (<0.03)
[2019-04-21] MEDS: Enoxaparin(*) 60 MG/0.6 ML SYR SUBCUT SCH (08:50)
[2019-04-21] MEDS: Cholecalciferol TAB* 1000 UNITS PO SCH (08:51)
[2019-04-21] MEDS: Aspirin 81 mg CHEW TAB* 81 MG TAB.CHEW PO SCH (08:52)
[2019-04-21] MEDS: PARoxetine HCL TAB* 20 MG PO SCH (08:52)
[2019-04-21] MEDS: Calcium Carbonate TAB* 1250 MG (CALCIUM 500 MG) PO SCH ×2 (08:52→20:52)
[2019-04-21] MEDS: Lisinopril TAB* 5 MG PO SCH (08:53)
[2019-04-21] MEDS ORDERED: Tiotropium CAPSULE (NF) 1 CAP/18 MCG CAP.INH INH SCH (09:00)
[2019-04-21] MEDS ORDERED: Magnesium Sulfate IV* 3 GM in NS 0.9% 100 ML* 100 ML IVPB ONE (10:00)
[2019-04-21] MEDS: cefTRIAXone(*) 1 GM in NS 0.9% 50 ML* 50 ML IVPB SCH (10:39)
--- NOTE | 2019-04-21 15:38 | PN ---
Subjective Date of Service: 04/21/19 Interval History: Sitting up eating breakfast. Has no complaints but notably confused Objective Active Medications: Acetaminophen (Tylenol Tab*) 975 mg PO Q8H PRN PRN Reason: PAIN - MILD Albuterol (Ventolin 2.5 Mg/3 Ml Neb.Darleen*) 2.5 mg INH Q4H PRN PRN Reason: SHORTNESS OF BREATH Aspirin (Aspirin 81 Mg Chew Tab*) 162 mg PO DAILY [facility] Last Admin: 04/21/19 08:52 Dose: 162 mg Calcium Carbonate (Calcium Carbonate Tab*) 1,250 mg PO BID [facility] Last Admin: 04/21/19 08:52 Dose: 1,250 mg Cholecalciferol (Vitamin D Tab*) 1,000 units PO DAILY [facility] Last Admin: 04/21/19 08:51 Dose: 1,000 units Clopidogrel Bisulfate (Plavix Tab*) 75 mg PO 2100 [facility] Ceftriaxone Sodium 1 gm/ (Sodium Chloride) 50 mls @ 100 mls/hr IVPB Q24H [facility] Last Admin: 04/21/19 10:39 Dose: 100 mls/hr Lactated Ringer's (Lactated Ringers 1000 Ml Bag*) 1,000 mls @ 100 mls/hr IV PER RATE [facility] Stop: 04/23/19 01:59 Lisinopril (Prinivil Tab*) 2.5 mg PO DAILY [facility] Last Admin: 04/21/19 08:53 Dose: 2.5 mg Mometasone Furoate/Formoterol Fumar (Dulera 200/5 Mdi*) 2 puff INH BID [facility] Last Admin: 04/21/19 07:38 Dose: 2 puff Paroxetine HCl (Paxil Tab*) 20 mg PO DAILY [facility] Last Admin: 04/21/19 08:52 Dose: 20 mg Propranolol HCl (Inderal Tab*) 10 mg PO BID [facility] Last Admin: 04/21/19 08:51 Dose: 10 mg Tiotropium Lena (Spiriva Respimat 2.5 Mcg) 2 puff INH DAILY [facility] Last Admin: 04/21/19 07:44 Dose: 2 puff Vital Signs - 8 hr 04/21/19 04/21/19 07:48 08:00 Pulse Rate 72 Respiratory 16 12 Rate O2 Sat by Pulse 96 Oximetry Oxygen Devices in Use Now: None Appearance: stated age, eating breakfast, NAD Eyes: No Scleral Icterus, PERRLA Ears/Nose/Mouth/Throat: Mucous Membranes Moist Neck: NL Appearance and Movements; NL JVP, Trachea Midline Respiratory: Symmetrical Chest Expansion and Respiratory Effort, Clear to Auscultation Cardiovascular: RRR Abdominal: NL Sounds; No Tenderness; No Distention, No Hepatosplenomegaly Lymphatic: No Cervical Adenopathy Extremities: No Edema Skin: No Rash or Ulcers Neurological: - - AOx1 to self, cannot name location or year. Keeps telling me "dentist" cranial nerves intact, moves all extremities but 5/5 thoughout, + intention tremor Result Diagrams: 04/21/19 06:01 04/21/19 06:01 Assess/Plan/Problems-Billing Assessment: 88 yo F h/o dementia recent failure to thrive presenting after being found down by daughter - Patient Problems (1) NSTEMI (non-ST elevated myocardial infarction) Comment: elevated trop, may be type 2 in setting of being down and aortic stenosis given plavix and started on lovenox ASA TTE pending was not taking medications as prescribed at home and would not be appropriate for any intervention that requires anti platelets therapy (stents with plavix) (2) Aortic stenosis Comment: Eval with Echo 01/01, mod to severe caution with fluids (3) Compression fracture Comment: L2 compression fxr (4) Dementia Comment: AOx1 I do not think pt will be able to care for self at home any longer alone (5) Urinary retention Comment: last UOP was yesterday in evening with straight cath (350cc) Bladder scan now with 350cc - mondragon placed (6) DVT prophylaxis Comment: full dose lovenox
[2019-04-21] MEDS ORDERED: Lactated Ringers 1000 ML Bag* 1,000 ML IV SCH (16:00)
[2019-04-21 17:15] LABS: Urine Appearance Cloudy; Urine Bilirubin Negative (Negative); Urine Blood 2+ (Negative); Urine Color Yellow; Urine Glucose Negative (Negative); Urine Ketones Trace (Negative); Urine Nitrite Negative (Negative); Urine Protein 1+(30 mg/dL) (Negative); Urine Specific Gravity 1.025 (1.010-1.030); Urine Urobilinogen Negative (Negative)
[2019-04-21 17:23] LABS: Urine Bacteria 3+ (Absent); Urine Red Blood Cell 1+(3-5/hpf) (Absent); Urine White Blood Cell 1+(6-10/hpf) (Absent)
[2019-04-21] MEDS: Clopidogrel TAB* 75 MG PO SCH (20:53)
[2019-04-22 06:44] LABS: HDL Cholesterol 38.8 mg/dL
--- NOTE | 2019-04-22 07:54 | PN ---
Subjective Date of Service: 04/22/19 Interval History: No acute issues overnight Was sleeping but arousable. Reports no concerns, is pleasantly confused. Family History: Unchanged from Admission Social History: Unchanged from Admission Past Medical History: Unchanged from Admission Objective Active Medications: Acetaminophen (Tylenol Tab*) 975 mg PO Q8H PRN PRN Reason: PAIN - MILD Albuterol (Ventolin 2.5 Mg/3 Ml Neb.Darleen*) 2.5 mg INH Q4H PRN PRN Reason: SHORTNESS OF BREATH Aspirin (Aspirin 81 Mg Chew Tab*) 162 mg PO DAILY [facility] Last Admin: 04/21/19 08:52 Dose: 162 mg Calcium Carbonate (Calcium Carbonate Tab*) 1,250 mg PO BID [facility] Last Admin: 04/21/19 20:52 Dose: Not Given Cholecalciferol (Vitamin D Tab*) 1,000 units PO DAILY [facility] Last Admin: 04/21/19 08:51 Dose: 1,000 units Clopidogrel Bisulfate (Plavix Tab*) 75 mg PO 2100 [facility] Last Admin: 04/21/19 20:53 Dose: 75 mg Ceftriaxone Sodium 1 gm/ (Sodium Chloride) 50 mls @ 100 mls/hr IVPB Q24H [facility] Last Admin: 04/21/19 10:39 Dose: 100 mls/hr Lactated Ringer's (Lactated Ringers 1000 Ml Bag*) 1,000 mls @ 100 mls/hr IV PER RATE [facility] Stop: 04/23/19 01:59 Last Admin: 04/22/19 04:32 Dose: 100 mls/hr Lisinopril (Prinivil Tab*) 2.5 mg PO DAILY [facility] Last Admin: 04/21/19 08:53 Dose: 2.5 mg Mometasone Furoate/Formoterol Fumar (Dulera 200/5 Mdi*) 2 puff INH BID [facility] Last Admin: 04/21/19 20:53 Dose: Not Given Paroxetine HCl (Paxil Tab*) 20 mg PO DAILY [facility] Last Admin: 04/21/19 08:52 Dose: 20 mg Propranolol HCl (Inderal Tab*) 10 mg PO BID [facility] Last Admin: 04/21/19 20:53 Dose: 10 mg Tiotropium [place] (Spiriva Respimat 2.5 Mcg) 2 puff INH DAILY [facility] Last Admin: 04/21/19 07:44 Dose: 2 puff Vital Signs - 8 hr 04/22/19 04/22/19 04/22/19 00:19 00:55 02:55 Temperature 99.1 F 98.2 F 97.8 F Pulse Rate 63 56 61 Respiratory 18 19 18 Rate Blood Pressure 90/65 149/46 144/111 (mmHg) O2 Sat by Pulse 100 99 99 Oximetry 04/22/19 03:02 Temperature Pulse Rate 61 Respiratory Rate Blood Pressure 141/47 (mmHg) O2 Sat by Pulse Oximetry Oxygen Devices in Use Now: Nasal Cannula Appearance: Thin female, lying in bed, not in distress Eyes: PERRLA Ears/Nose/Mouth/Throat: Mucous Membranes Moist Respiratory: Symmetrical Chest Expansion and Respiratory Effort, - - minimal wheezing Cardiovascular: RRR, No Edema, - - 3/6 systolic murmur at the RUSB Extremities: No Edema Skin: No Rash or Ulcers Neurological: NL Muscle Strength and Tone, - - alert, oriented X 1. Result Diagrams: 04/21/19 06:01 04/21/19 06:01 Microbiology and Other Data: Microbiology 04/20/19 18:26 Urine Culture - Final Urine Enterococcus Faecalis Assess/Plan/Problems-Billing Assessment: 88 yo F h/o dementia recent failure to thrive presenting after being found down by daughter - Patient Problems (1) NSTEMI (non-ST elevated myocardial infarction) Current Visit: Yes Status: Acute Code(s): I21.4 - NON-ST ELEVATION (NSTEMI) MYOCARDIAL INFARCTION SNOMED Code(s): 73097757 Comment: elevated trop, likley demand releated, Type II NSTEMI, in setting of being down and aortic stenosis on aspirin and plavix. TTE pending was not taking medications as prescribed at home and would not be appropriate for any intervention that requires anti platelets therapy (stents with plavix) (2) Aortic stenosis Current Visit: Yes Status: Acute Code(s): I35.0 - NONRHEUMATIC AORTIC (VALVE ) STENOSIS SNOMED Code(s): 49576447 Comment: Echo 01/01, mod to severe caution with fluids (3) Compression fracture Current Visit: Yes Status: Acute Code(s): AHD6968 - SNOMED Code(s): 327981675 Comment: L2 compression fxr (4) Chronic kidney disease, stage II (mild) Current Visit: No Status: Acute Priority: Medium Onset Date: 03/17/14 Code(s): N18.2 - CHRONIC KIDNEY DISEASE, STAGE 2 (MILD) SNOMED Code(s): 139963335 Comment: - Appears baseline (5) DNR (do not resuscitate) Current Visit: No Status: Acute (6) DVT prophylaxis Current Visit: No Status: Acute Priority: Medium Onset Date: 03/17/14 Code(s): MJD2106 - SNOMED Code(s): 156635775 Comment: SCD (7) Urinary tract infection Current Visit: No Status: Suspected Priority: High Onset Date: 03/17/14 Comment: E. Fecalis UTI On Rocephin. (8) COPD (chronic obstructive pulmonary disease) Current Visit: No Status: Chronic Code(s): J44.9 - CHRONIC OBSTRUCTIVE PULMONARY DISEASE, UNSPECIFIED SNOMED Code(s): 30884429 Comment: - No signs of exacerbation - Hx Asthma - Continue spiriva, dulera, albuterol PRN (9) Dementia Current Visit: Yes Status: Acute Code(s): F03.90 - UNSPECIFIED DEMENTIA WITHOUT BEHAVIORAL DISTURBANCE SNOMED Code(s): 14974106 Comment: AOx1 will need to consider placement. (10) Urinary retention Current Visit: Yes Status: Acute Code(s): R33.9 - RETENTION OF URINE, UNSPECIFIED SNOMED Code(s): 227344281 Comment: was having retention mondragon has been placed. (11) Rhabdomyolysis Current Visit: Yes Status: Acute Code(s): M62.82 - RHABDOMYOLYSIS SNOMED Code(s): 105642038 Comment: due to being on the ground CK has trended downwards. need to be cautious for IV fluids- given history of aortic stenosis. Status and Disposition: PT/OT for placement.
[2019-04-22] MEDS: SPIRIVA Respimat* (tiotropium) 2.5 mcg/inh Inhaler INH SCH (08:10)
[2019-04-22] MEDS: Mometasone/Formoter 200/5 MDI INH SCH ×2 (08:10→20:29)
[2019-04-22] MEDS: cefTRIAXone(*) 1 GM in NS 0.9% 50 ML* 50 ML IVPB SCH (10:35)
[2019-04-22] MEDS: Cholecalciferol TAB* 1000 UNITS PO SCH (10:39)
[2019-04-22] MEDS: Aspirin 81 mg CHEW TAB* 81 MG TAB.CHEW PO SCH (10:40)
[2019-04-22] MEDS: Calcium Carbonate TAB* 1250 MG (CALCIUM 500 MG) PO SCH ×2 (10:40→21:33)
[2019-04-22] MEDS: Lisinopril TAB* 5 MG PO SCH (10:41)
[2019-04-22] MEDS: PARoxetine HCL TAB* 20 MG PO SCH (10:41)
--- NOTE | 2019-04-22 13:44 | ECHO ---
[place] [address] Fax #: [phone] Transthoracic Echocardiogram Patient: Eusebia Umaña : 1930 Study Date: 04/22/2019 Age: 88 Gender: F HR: 64 bpm Height: 66 in /167.6 cm BSA: 1.47 m^2 Weight: 103.8 lb /47.2 kg BMI: 16.8 kg/m^2 *Focusing Machine Operator: * Sapna Suarez [facility] [place] *Referring Physician: * Berto Murillo *Reading Physician: * Karthik Iraheta MD Indications: Syncope. History: Aortic stenosis. Mitral stenosis. Chronic obstructive pulmonary disease. Dementia. Risk factors: Hypertension. Conclusions Summary: - Left ventricle: The cavity size is below normal. Wall thickness is mildly to moderately increased. Systolic function is normal. The estimated ejection fraction is 55-60%. Wall motion is normal; there are no regional wall motion abnormalities. - Right ventricle: The cavity size is mildly dilated. Systolic function is normal. Systolic pressure is moderately increased. - Left atrium: The atrium is mildly dilated. - Mitral valve: The findings are consistent with mild stenosis. - Aortic valve: The findings are consistent with moderate to severe, more consistent with severe low gradient, normal LVEF stenosis. There is mild to moderate regurgitation. The peak systolic velocity is 3.8 m/sec. The mean systolic gradient is 29.0 mm Hg. The valve area by the velocity-time integral method is 1.03 cm^2. Recommendations: Compared to prior study from 12/2018, findings are similar, previous mean gradient was 22 mmHg across the aortic valve. Study data: Transthoracic echocardiogram. Procedure: Transthoracic echocardiography was performed. Image quality was fair. The study was technically limited due to poor patient compliance. Complete 2D, spectral Doppler, and color flow Doppler. Location: Bedside. Patient status: Inpatient. Patient room number: 439. Rhythm: Normal sinus rhythm. Findings Left ventricle: The cavity size is below normal. Wall thickness is mildly to moderately increased. Systolic function is normal. The estimated ejection fraction is 55-60%. Wall motion is normal; there are no regional wall motion abnormalities. Doppler parameters are consistent with abnormal left ventricular relaxation (grade 1 diastolic dysfunction). Right ventricle: The cavity size is mildly dilated. Systolic function is normal. Systolic pressure is moderately increased. Left atrium: The atrium is mildly dilated. Right atrium: The atrium is mildly dilated. Mitral valve: The Mitral valve annulus appears calcified. The leaflets are mildly thickened. The findings are consistent with mild stenosis. There is mild regurgitation. Aortic valve: The valve is trileaflet. The leaflets are moderately calcified. The findings are consistent with moderate to severe, more consistent with severe low gradient, normal LVEF stenosis. There is mild to moderate regurgitation. Tricuspid valve: The leaflets are normal thickness. There is no evidence of stenosis. There is mild-moderate regurgitation. Pulmonic valve: The leaflets are normal thickness. There is no evidence of stenosis. There is trace to mild regurgitation. Aorta: Aortic root: The aortic root is appears normal. Ascending aorta: The ascending aorta is mildly dilated. Aortic arch: The aortic arch is appears normal. Pericardium: There is no significant pericardial effusion. Pulmonary arteries: The main pulmonary artery is normal-sized. Systolic pressure is severely increased. Systemic veins: Inferior vena cava: The vessel is mildly dilated. There is (< 50%) respiratory change in the IVC dimension. Measurements Left ventricle Value Ref Aortic valve continued Value Ref MIK, LAX (L) 3.1 cm 3.8 - SEBASTIAN, VTI 1.03 cm^2 ----- 5.2 SEBASTIAN, Vmax 0.85 cm^2 ----- ESD, LAX 2.2 cm 2.2 - AR peak v 2.37 m/sec ----- 3.5 AR decel time 1702 ms ----- FS, LAX 31 % 27 - 45 AR PHT 494 ms ----- PW, ED, LAX (H) 1.3 cm 0.6 - AR peak grad 22 mm Hg ----- 0.9 FS 31 % 27 - 45 Mitral valve Value Ref PW, ED (H) 1.3 cm 0.6 - Peak E 1.35 m/sec ----- 0.9 Peak A 1.81 m/sec ----- E', lat taj, TDI (L) 3.9 cm/sec >=10.0 VTI leaflet coapt 52.3 cm - ---- E/e', lat taj, TDI 35 -------- Decel time 247 ms ---- - PHT 124 ms ----- LVOT Value Ref Mean grad, D 4.9 mm Hg ----- Diam, S 1.97 cm -------- Peak grad, D 13.0 mm Hg ----- Area 3.0 cm^2 -------- Peak E/A ratio 0.75 ----- Peak jayson, S 1.07 m/sec -------- MVA, PHT 1.8 cm^2 ----- VTI, S 28.1 cm -------- Mean grad, S 2 mm Hg -------- Pulmonic valve Value Ref Peak v, S 1.19 m/sec ----- Ventricular septum Value Ref Peak grad, S 5.6 mm Hg ----- IVS, ED (H) 1.5 cm 0.6 - 0.9 Tricuspid valve Value Ref TR peak v (H) 3.36 m/sec <=2.8 Right ventricle Value Ref Peak RV-RA grad, S 45 mm Hg ----- MIK, LAX 3.0 cm -------- MIK minor ax, A4C (H) 3.8 cm 1.9 - Aortic root Value Ref mid 3.5 Root diam 3.3 cm <3.7 Pressure, S 60 mm Hg -------- Ascending aorta Value Ref Left atrium Value Ref AAo AP diam, S 4.0 cm ----- LA ID 4.2 cm -------- SI dim ES, LAX 4.2 cm -------- Aortic arch Value Ref ML dim, A4C 4.5 cm -------- Arch diam 2.5 cm ----- SI dim, A4C 5.0 cm -------- Vol, ES, 2-p 51 ml -------- Decending aorta Value Ref Vol/bsa, ES, 2-p (H) 35 ml/m^2 16 - 34 Tyrell peak jayson 0.81 m/sec ----- Right atrium Value Ref Pulmonary artery Value Ref SI dim, ES 5.0 cm 3.4 - Pressure, S 54.4 mm Hg ----- 5.3 ML dim, ES, A4C (H) 4.5 cm 2.6 - Inferior vena cava Value Ref 4.4 Diam 2.3 cm ----- Estimated RAP 15 mm Hg -------- Aortic valve Value Ref Taj diam, S (L) 1.8 cm 1.9 - 2.7 Peak v, S 3.8 m/sec -------- VTI, S 83.0 cm -------- Mean grad, S 29.0 mm Hg -------- Peak grad, S 57.0 mm Hg -------- LVOT/AV, VTI ratio 0.34 -------- Legend: (L) and (H) sonny values outside specified reference range. Prepared and electronically signed by Karthik Iraheta MD 04/22/2019 13:39
[2019-04-22] MEDS: Clopidogrel TAB* 75 MG PO SCH (21:33)
--- NOTE | 2019-04-22 22:28 | PN ---
Hospitalist Progress Note Date of Service: 04/22/19 Called overnight as patient pulled out IV and mondragon Noted patient is confused at baseline due to her dementia. According to nurse, he is not acting at his baseline. Mondragon was placed 04/21/2019 due to urinary retention. pansensitive enterococcus facaelis UTI currently on iv ceftriaxone. Patient refused to iv and mondragon reinsertion Plan: - switch to oral Augmentin - Recheck bladder scan at 2am if no void, call me result
[2019-04-23] MEDS: Lisinopril TAB* 5 MG PO SCH (08:43)
[2019-04-23] MEDS: Cholecalciferol TAB* 1000 UNITS PO SCH (08:43)
[2019-04-23] MEDS: Aspirin 81 mg CHEW TAB* 81 MG TAB.CHEW PO SCH (08:44)
[2019-04-23] MEDS: Calcium Carbonate TAB* 1250 MG (CALCIUM 500 MG) PO SCH (08:45)
[2019-04-23] MEDS: PARoxetine HCL TAB* 20 MG PO SCH (08:49)
[2019-04-23] MEDS ORDERED: Amoxicillin/Clavulanate TAB* 875 MG PO SCH (09:00)
[2019-04-23] MEDS: SPIRIVA Respimat* (tiotropium) 2.5 mcg/inh Inhaler INH SCH (09:30)
[2019-04-23] MEDS: Mometasone/Formoter 200/5 MDI INH SCH (09:30)
--- NOTE | 2019-04-23 12:07 | PN ---
Subjective Date of Service: 04/23/19 Interval History: Awaiting insurance authorization for [facility] bed. overnight had urinary retention- discussed with nurse- this has now been resolved, patient had urinated this morning without issues. Patient is pleasantly confused this morning. No fever. no chills. Family History: Unchanged from Admission Social History: Unchanged from Admission Past Medical History: Unchanged from Admission Objective Active Medications: Acetaminophen (Tylenol Tab*) 975 mg PO Q8H PRN PRN Reason: PAIN - MILD Albuterol (Ventolin 2.5 Mg/3 Ml Neb.Darleen*) 2.5 mg INH Q4H PRN PRN Reason: SHORTNESS OF BREATH Amoxicillin/Clavulanate Potassium (Augmentin Tab*) 875 mg PO BID [facility] Last Admin: 04/23/19 08:45 Dose: 875 mg Aspirin (Aspirin 81 Mg Chew Tab*) 162 mg PO DAILY [facility] Last Admin: 04/23/19 08:44 Dose: 162 mg Calcium Carbonate (Calcium Carbonate Tab*) 1,250 mg PO BID [facility] Last Admin: 04/23/19 08:45 Dose: 1,250 mg Cholecalciferol (Vitamin D Tab*) 1,000 units PO DAILY [facility] Last Admin: 04/23/19 08:43 Dose: 1,000 units Clopidogrel Bisulfate (Plavix Tab*) 75 mg PO 2100 [facility] Last Admin: 04/22/19 21:33 Dose: 75 mg Lisinopril (Prinivil Tab*) 2.5 mg PO DAILY [facility] Last Admin: 04/23/19 08:43 Dose: 2.5 mg Mometasone Furoate/Formoterol Fumar (Dulera 200/5 Mdi*) 2 puff INH BID [facility] Last Admin: 04/23/19 09:30 Dose: Not Given Paroxetine HCl (Paxil Tab*) 20 mg PO DAILY [facility] Last Admin: 04/23/19 08:49 Dose: 20 mg Propranolol HCl (Inderal Tab*) 10 mg PO BID [facility] Last Admin: 04/23/19 08:42 Dose: 10 mg Tiotropium [place] (Spiriva Respimat 2.5 Mcg) 2 puff INH DAILY [facility] Last Admin: 04/23/19 09:30 Dose: Not Given Vital Signs - 8 hr 04/23/19 04/23/19 07:15 08:00 Temperature 97.2 F Pulse Rate 55 Respiratory 16 16 Rate Blood Pressure 159/55 (mmHg) O2 Sat by Pulse 96 Oximetry Oxygen Devices in Use Now: Nasal Cannula Appearance: Elderly female, pleasantly confused, sitting on chair, not in distress Ears/Nose/Mouth/Throat: Mucous Membranes Moist Respiratory: Symmetrical Chest Expansion and Respiratory Effort, Clear to Auscultation Cardiovascular: RRR, No Edema, - - 3/6 systolic murmur at the RUSB Abdominal: NL Sounds; No Tenderness; No Distention, No Hepatosplenomegaly Extremities: No Edema Skin: No Rash or Ulcers Neurological: NL Muscle Strength and Tone, - - Awake/alert/oriented X one. - Nutrition: Malnutrition Diagnosis/Plan Malnutrition Assessment by Registered Dietitian: Malnutrition Assessment Clinical Characteristics Chronic,Moderate Malnutrition Assessment: Pt with poss 15# (12.5%) wt loss x 3 mos per EMR Criteria . Per visual assessment, pt with mild to moderate subcutaneous fat loss to orbitals Malnutrition Assessment: Recommend liberalize diet to possibly encourage Interventions intake. Also recommend Ensure supplement BID ( 350 kcals, 20 g pro per each) due to poor intake at meals. Will cont to follow intakes, diet/ suppl. tolerance. Malnutrition Assessment: Goals 1. adequate intake to support hydration and lean body mass without further wt loss 2. maintain serum electrolytes WNL 3. regulation of bowel pattern; no c/o constipation (or diarrhea) Result Diagrams: 04/21/19 06:01 04/21/19 06:01 Microbiology and Other Data: Microbiology 04/20/19 18:26 Urine Culture - Final Urine Enterococcus Faecalis Assess/Plan/Problems-Billing Assessment: 88 yo F h/o dementia recent failure to thrive presenting after being found down by daughter - Patient Problems (1) NSTEMI (non-ST elevated myocardial infarction) Current Visit: Yes Status: Acute Code(s): I21.4 - NON-ST ELEVATION (NSTEMI) MYOCARDIAL INFARCTION SNOMED Code(s): 37528543 Comment: elevated trop, jeremiahley demand releated, Type II NSTEMI, in setting of being down and aortic stenosis on aspirin and plavix. TTE pending was not taking medications as prescribed at home and would not be appropriate for any intervention that requires anti platelets therapy (stents with plavix) (2) Aortic stenosis Current Visit: Yes Status: Acute Code(s): I35.0 - NONRHEUMATIC AORTIC (VALVE ) STENOSIS SNOMED Code(s): 56303895 Comment: ECHO done, shows moderate to severe with valve area of 1.03cm^2 caution with fluids at this point does not require addition of diuretics. would benefit from cardiology follow up as outpatient. (3) Compression fracture Current Visit: Yes Status: Acute Code(s): QFP9306 - SNOMED Code(s): 377183689 Comment: L2 compression fxr (4) Chronic kidney disease, stage II (mild) Current Visit: No Status: Acute Priority: Medium Onset Date: 03/17/14 Code(s): N18.2 - CHRONIC KIDNEY DISEASE, STAGE 2 (MILD) SNOMED Code(s): 067276103 Comment: - Appears baseline (5) DNR (do not resuscitate) Current Visit: No Status: Acute (6) DVT prophylaxis Current Visit: No Status: Acute Priority: Medium Onset Date: 03/17/14 Code(s): FGU7996 - SNOMED Code(s): 406711121 Comment: SCD (7) Urinary tract infection Current Visit: No Status: Suspected Priority: High Onset Date: 03/17/14 Comment: E. Fecalis UTI pulled her IV out, Rocephin changed to augmentin overnight- continue same. (8) COPD (chronic obstructive pulmonary disease) Current Visit: No Status: Chronic Code(s): J44.9 - CHRONIC OBSTRUCTIVE PULMONARY DISEASE, UNSPECIFIED SNOMED Code(s): 66020132 Comment: - No signs of exacerbation - Hx Asthma - Continue spiriva, dulera, albuterol PRN (9) Dementia Current Visit: Yes Status: Acute Code(s): F03.90 - UNSPECIFIED DEMENTIA WITHOUT BEHAVIORAL DISTURBANCE SNOMED Code(s): 09988251 Comment: AOx1 will need to consider placement. (10) Urinary retention Current Visit: Yes Status: Acute Code(s): R33.9 - RETENTION OF URINE, UNSPECIFIED SNOMED Code(s): 968299105 Comment: was having retention mondragon has been placed. (11) Rhabdomyolysis Current Visit: Yes Status: Acute Code(s): M62.82 - RHABDOMYOLYSIS SNOMED Code(s): 386709699 Comment: due to being on the ground CK has trended downwards. need to be cautious for IV fluids- given history of aortic stenosis. Status and Disposition: PT/OT for placement.
[2019-04-23 13:17] VITALS: BP 149/48
--- NOTE | 2019-04-23 14:08 | DS ---
CC: Lori Redding NP DISCHARGE SUMMARY: DATE OF ADMISSION: 04/20/19 DATE OF DISCHARGE: 04/23/19 PRIMARY CARE PROVIDER: Lori Redding NP DISCHARGE DIAGNOSES: Include: 1. Urinary tract infection. 2. L1 compression fracture. 3. Sxlrvvqm-fn-sucdyi aortic stenosis. 4. Dementia with frequent falls. 5. Chronic obstructive pulmonary disease, on oxygen now. REASON FOR THE ADMISSION: Status post fall. HOSPITAL COURSE: Ms. Eusebia Umaña is an 88-year-old female with history of dementia, falls, with history of T12 fracture, who was admitted to the hospital after a fall. The reason for the fall, there was unclear etiology; however, she was found to have mild rhabdomyolysis with CKs in the 1000. She also had on admission CT of the head that was done, which revealed no acute abnormality, age -related atrophy, moderate chronic small vessel ischemic changes with chronic left sphenoid sinusitis. The patient was admitted to the hospital. The patient was found to have aortic stenosis with history of aortic stenosis, so we were cautious with the fluids. The patient was admitted to the hospital. An echocardiogram was ordered. Creatine kinase trended down. For the L1 fracture, we ordered a physical therapy consultation. Physical Therapy and Case Management were involved in her care as well as discharge planning. The patient was also found to have urinary tract infection with urine culture growing E. faecalis resistant to quinupristin/dalfopristin, otherwise pansensitive. The patient was given IV Rocephin and eventually changed to Augmentin when the patient removed her IV site. Additionally, the patient has history of COPD, was started on oxygen while she was in the hospital and we have been slowly weaning it down; however, she remains on oxygen at 2 L nasal cannula. DISCHARGE PLANNING: DISCHARGE CONDITION: Fair. DISCHARGE DISPOSITION: To [facility]. DISCHARGE DIET: Includes regular. DISCHARGE FOLLOWUP INSTRUCTIONS: Include: 1. To follow up with Dr. Karthik Iraheta in 1 month regarding [id number] aortic stenosis. 2. Follow up with Lori Redding NP, primary care provider, in 4 to 7 days. 3. Activity is going to be as tolerated. 4. Note to the detention: We need to be cautious with fluids as the patient does have aortic stenosis; however, she has not been requiring any IV diuresis or diuretics in general. We instruct you to wean off oxygen as tolerated. DISCHARGE MEDICATIONS: Include: 1. Acetaminophen 650 mg every 8 hours as needed for pain. 2. Albuterol sulfate inhaled daily. 3. Augmentin 875/125 one tab twice a day, last dose will be 04/27/2019 evening dose. 4. Aspirin 81 mg daily. 5. Calcitonin 200 units nares daily. 6. Plavix 75 mg daily. 7. Lidocaine patch 1 patch transdermal daily. 8. Oxycodone 5 mg every 6 hours for severe pain. 9. Tiotropium 1 cap inhaled daily. 10. DuoNeb every 4 hours inhaled as needed for shortness of breath. 11. Calcium carbonate 1250 mg twice daily. 12. Cholecalciferol 1000 units daily. 13. Lisinopril 2.5 mg daily. 14. Paroxetine 20 mg daily. 15. Propranolol 10 mg b.i.d. PHYSICAL EXAMINATION: Blood pressure of 159/55, saturation of 96% on 2 L nasal cannula, respiratory rate of 16, heart rate of 55, temperature of 97.2 Fahrenheit. General: She is a pleasantly confused, elderly female, sitting in a chair, in no acute distress. Pupils equal, round, and reactive to light. There is no nystagmus. There is no chest wall tenderness. 3/6 systolic murmur best heard at the right upper sternal border. There is no tachypnea, no use of accessory muscles. Mild end-expiratory wheezing at the lower lung bases. Normoactive bowel sounds. Abdomen is soft, nontender, nondistended. No lower extremity edema, no calf tenderness. She is awake, alert, oriented x1. She follows commands with no focal neurological deficits. TIME SPENT: About 35 minutes was spent with discharge planning including face- to- face time with the patient as well as working with employment case manager. [id number]/[facility] #: [id number] KRISTINE
== END 2019-04-23 13:50 | DRG 281 ==
LOC: ED 14:26 → MEDTELE 18:26
PROVIDERS: ADMIT Internal Medicine; ATTEND Internal Medicine
DX: I21.A1 Myocardial infarction type 2 (principal); N39.0 Urinary tract infection, site not specified; S32.019A Unspecified fracture of first lumbar vertebra, initial encounter for closed fracture; Z68.1 Body mass index [BMI] 19.9 or less, adult; M62.82 Rhabdomyolysis; Z16.31 Resistance to antiparasitic drug(s); J98.11 Atelectasis; G93.40 Encephalopathy, unspecified; I12.9 Hypertensive chronic kidney disease with stage 1 through stage 4 chronic kidney disease, or unspecified chronic kidney disease; F03.90 Unspecified dementia, unspecified severity, without behavioral disturbance, psychotic disturbance, mood disturbance, and anxiety; J44.9 Chronic obstructive pulmonary disease, unspecified; I35.0 Nonrheumatic aortic (valve) stenosis; N18.2 Chronic kidney disease, stage 2 (mild); Z66 Do not resuscitate; B95.2 Enterococcus as the cause of diseases classified elsewhere; M85.80 Other specified disorders of bone density and structure, unspecified site; F41.9 Anxiety disorder, unspecified; R33.9 Retention of urine, unspecified; F32.9 Major depressive disorder, single episode, unspecified; M54.5 Low back pain; Z96.642 Presence of left artificial hip joint; W18.30XA Fall on same level, unspecified, initial encounter; Z79.1 Long term (current) use of non-steroidal anti-inflammatories (NSAID); Z79.51 Long term (current) use of inhaled steroids; Z79.899 Other long term (current) drug therapy; Z88.2 Allergy status to sulfonamides; Z82.49 Family history of ischemic heart disease and other diseases of the circulatory system; Z91.81 History of falling; Y92.008 Other place in unspecified non-institutional (private) residence as the place of occurrence of the external cause
CPT/HCPCS: 36415; 70450; 71250; 72128; 80048; 80053; 80061; 81003; 81015; 82550; 83605; 83735; 84439; 84443; 84481; 84484; 85025; 87077; 87086; 87186; 93005; 93306; 94640; 99285; A9270-GY; G8978-GP-CL; G8979-GP-CI; J0696; J1650; J3475; J3535